=== PATIENT | female | born 1935 | race Hispanic/Latino ===

== ENCOUNTER 2018-08-23 13:50 | Inpatient (IN) | payer MEDICARE, OTHER ==
[2018-08-23] MEDS ORDERED: HUMALOG100 UNIT/1 SQ (14:07)
[2018-08-23] MEDS ORDERED: METOPROLOL TART25 MG PO (14:07)
[2018-08-23] MEDS ORDERED: FENOFIBRATE145 MG PO (14:07)
[2018-08-23] MEDS ORDERED: PLAVIX75 MG PO (14:07)
[2018-08-23] MEDS ORDERED: CRESTOR10 MG PO (14:07)
[2018-08-23] MEDS ORDERED: LEVEMIR100 UNIT/1 SQ ×2 (14:07)
[2018-08-23] MEDS ORDERED: ASPIRIN81 MG PO (14:07)
[2018-08-23] MEDS ORDERED: SODIUM CHLORIDE 0.9% 1000ML 1,000 ML IV STA (14:16)
[2018-08-23 14:23] LABS: BASOPHILS % 0.4 % (0.0-1.0); EOSINOPHILS # (AUTO) 0.6 (0.0-0.4); EOSINOPHILS % 5.5 % (0.0-6.0); HEMATOCRIT 35.9 % (34.2-44.1); LYMPHOCYTES # (AUTO) 2.3 (1.0-3.2); MEAN CORPUSCULAR HEMOGLOBIN 29.8 pg (28-32); MEAN CORPUSCULAR HGB CONC 33.4 g/dL (31-35); MEAN CORPUSCULAR VOLUME 89.1 fL (81-99); MONOCYTES # (AUTO) 0.6 (0.2-0.8); MONOCYTES % 5.6 % (4.4-11.3); NEUTROPHILS # (AUTO) 7.7 (2.1-6.9); NEUTROPHILS % 67.8 % (38.7-80.0); PLATELET COUNT 260 x10e3/uL (140-360); RED BLOOD COUNT 4.03 x10e6/uL (3.6-5.1); RED CELL DISTRIBUTION WIDTH 12.6 % (11.7-14.4)
[2018-08-23 14:35] LABS: INR 0.94; PROTHROMBIN TIME 13.1 seconds (11.9-14.5)
[2018-08-23 14:36] LABS: PARTIAL THROMBOPLASTIN TIME 27.1 seconds (23.8-35.5)
[2018-08-23 14:46] LABS: ALBUMIN 3.1 g/dL (3.5-5.0); ALBUMIN/GLOBULIN RATIO 0.8 (0.8-2.0); ANION GAP 14.3 mmol/L (8-16); CALCIUM 9.7 mg/dL (8.4-10.2); CREATININE, SERUM 1.18 mg/dL (0.57-1.11); MAGNESIUM 1.6 MG/DL (1.3-2.1); POTASSIUM 4.3 mmol/L (3.5-5.1)
[2018-08-23 14:52] LABS: CREATINE KINASE MB 0.8 ng/mL (0-5.0)
[2018-08-23] MEDS ORDERED: ONDANSETRON HCL INJ 2MG/ML 2ML 2 MG/ML VIAL IV ONE (15:00)
--- NOTE | 2018-08-23 15:31 | Diagnostic Imaging Report ---
EXAMINATION: CHEST SINGLE (PORTABLE) INDICATION: Abdominal pain. ^ERMD ORDER ^[id number] ^1515 ^Y COMPARISON: None FINDINGS: AP view TUBES and LINES: None. LUNGS: Low lung volumes. There is no evidence of pneumonia or pulmonary edema. PLEURA: No pleural effusion or pneumothorax. HEART AND MEDIASTINUM: The cardiomediastinal silhouette is unremarkable. Aorta is calcified and mildly tortuous. BONES AND SOFT TISSUES: No acute osseous lesion. Soft tissues are unremarkable. UPPER ABDOMEN: No free air under the diaphragm. IMPRESSION: No acute thoracic abnormality. Signed by: Dr. Quique Enriquez MD on 08/23/2018 3:28 PM
[2018-08-23] MEDS ORDERED: SODIUM CHLORIDE 0.9% 250ML 250 ML IV ONE ×2 (15:45)
--- NOTE | 2018-08-23 17:49 | Diagnostic Imaging Report ---
EXAM: CT Abdomen and Pelvis WITH contrast INDICATION: ^abd pain ^[id number] ^1630 COMPARISON: None. TECHNIQUE: Abdomen and pelvis were scanned utilizing a multidetector helical scanner from the lung base to the pubic symphysis after administration of IV contrast. Coronal and sagittal reformations were obtained. Dose modulation, iterative reconstruction, and/or weight based adjustment of the mA/kV was utilized to reduce the radiation dose to as low as reasonably achievable. Routine protocol was performed. Scan was performed when during portal venous phase. IV CONTRAST: 100 mL of Isovue-370 ORAL CONTRAST: None. COMPLICATIONS: None RADIATION DOSE: Total DLP: 405.18 mGy*cm Estimated effective dose: (DLP x 0.015 x size factor) mSv CTDIvol has been reviewed. It is below the limits set by the Radiation Protocol Committee (RPC). FINDINGS: LINES and TUBES: None. LOWER THORAX: Unremarkable HEPATOBILIARY: No focal hepatic lesions. Moderate pneumobilia and left hepatic lobe biliary dilatation. The common bile duct is also distended with air. GALLBLADDER: Surgically absent. SPLEEN: No splenomegaly. PANCREAS: Atrophic. No focal masses or ductal dilatation. ADRENALS: No adrenal nodules KIDNEYS/URETERS: Kidneys enhance symmetrically. No hydronephrosis. No cystic or solid mass lesions. No stones. Multifocal bilateral areas of cortical thinning/scarring. Bilateral renal calcifications are probably vascular. GI TRACT: No abnormal distention or evidence of bowel obstruction. Mild cecal and proximal ascending colon wall thickening. Scattered colonic diverticula without evidence of diverticulitis. Appendix is normal. PELVIC ORGANS/BLADDER: Multiple calcified uterine fibroids. Bladder is unremarkable. LYMPH NODES: No lymphadenopathy. VESSELS: Severe aortoiliac atherosclerotic disease. PERITONEUM / RETROPERITONEUM: No free air or fluid. BONES: Generalized demineralization limits evaluation. Mottled appearance of the pelvic bones mild lumbar spine scoliosis with multilevel advanced degenerative changes. SOFT TISSUES: Small fat-containing umbilical hernia. IMPRESSION: 1. Mild cecal and proximal ascending colon wall thickening, could be due to underdistention or mild colitis in the appropriate clinical context. Otherwise, no acute inflammatory process in the abdomen/pelvis. 2. Status post cholecystectomy. There is moderate pneumobilia and left hepatic lobe biliary dilatation. The common bile duct is also distended with air. 3. Severe arteriolosclerosis. Signed by: Dr. Quique Enriquez MD on 08/23/2018 5:45 PM
[2018-08-23 18:09] LABS: BILIRUBIN,URINE NEGATIVE (NEGATIVE); CLARITY,URINE SL CLOUDY (CLEAR); COLOR,URINE YELLOW (YELLOW); KETONES,URINE NEGATIVE (NEGATIVE); LEUKOCYTE ESTERASE ,URINE TRACE (NEGATIVE); NITRITE,URINE NEGATIVE (NEGATIVE); PROTEIN,URINE DIPSTICK 3+ (NEGATIVE); URINE UROBILINOGEN 1 mg/dL (0.2 - 1)
[2018-08-23] MEDS ORDERED: PIPER-TAZ 3.375 GM 50 ML IV SCH (18:30)
[2018-08-23 18:32] LABS: RBC,URINE 0-5 /HPF (0-5)
[2018-08-23 18:33] LABS: EPITHELIAL CELLS,URINE MODERATE /LPF; TRANSITIONAL EPI CELLS,URINE MODERATE
[2018-08-23 18:39] LABS: BACTERIA,URINE MANY /HPF
--- NOTE | 2018-08-23 18:39 | NUR ---
Call placed to lab, per Alex Armas SHIPPING PROCESSOR for lactic blood draw. Spoke with
[2018-08-23] MEDS ORDERED: DEXTROSE 50% SYRINGE 50 ML IV PRN (18:45)
[2018-08-23] MEDS ORDERED: SODIUM CHLORIDE 0.9% 1000ML 1,000 ML IV ONE (18:45)
[2018-08-23] MEDS ORDERED: IOPAMIDOL 370 MG/ML 200 ML INFUS..BTL INJ ONE (18:45)
--- OUTSIDE RECORDS SUMMARY | 2018-08-23 18:56 | XMS REPORT ---
Author Author [facility] Address Unknown Phone Unavailable Care Team Providers Care Transition Coach Name Role Phone Manny PERDUE Unavailable Unavailable Problems This patient has no known problems. Allergies, Adverse Reactions, Alerts This patient has no known allergies or adverse reactions. Medications This patient has no known medications. Results Test Description Test Time Test Comments Text Results Atomic Results Result Comments CT ABDOMEN/PELVIS W 2018-08-23 17:33:00 [facility] [address] [place] [address] Patient Name: DELANEY SULLIVAN MR #: [id number] : 1935 Age/Sex: 83/F Req #: [id number] Adm Physician: Ordered by: KIMMY CASTANEDA BEAUTY ARTIST Report #: [id number] Location: ER Room/Bed: Procedure: [id number] CT/CT ABDOMEN/PELVIS W Exam Date: 08/23/18 Exam Time: 1630 REPORT STATUS: Signed EXAM: CT Abdomen and Pelvis WITH contrast INDICATI ON: abd pain [id number] COMPARISON: None. TECHNIQUE: Abdomen and pelvis were scanned utilizing a multidetector helical scanner from the lung base to the pubic symphysis after administration of IV contrast. Coronal and sagittal reformations were obtained. Dose modulation, iterative reconstruction, and/or weight based adjustment of the mA/kV was utilized to reduce the radiation dose to as low as reasonably achievable. Routine protocol was performed. Scan was performed when during portal venous phase. IV CONTRAST: 100 mL of Isovue-370 ORAL CONTRAST: None. COMPLICATIONS: None RADIATION DOSE: Total DLP: 405.18 mGy*cm Estimated effective dose: (DLP x 0.015 x size factor) mSv CTDIvol has been reviewed. It is below the limits set by the Radiation Protocol Committee (RPC). FINDINGS: LINES and TUBES: None. LOWER THORAX: Unremarkable HEPATOBILIARY: No focal hepatic lesions. Moderate pne umobilia and left hepatic lobe biliary dilatation. The common bile duct is also distended with air. GALLBLADDER: Surgically absent. SPLEEN: No splenomegaly. PANCREAS: Atrophic. No focal masses or ductal dilatation. ADRENALS: No adrenal nodules KIDNEYS/URETERS: Kidneys enhance symmetrically. No hydronephrosis. No cystic or solid mass lesions. No stones. Multifocal bilateral areas of cortical thinning/scarring. Bilateral renal calcifications are probably vascular. GI TRACT: No abnormal distention or evidence of bowel obstruction. Mild cecal and proximal ascending colon wall thickening. Scattered colonic diverticula without evidence of diverticulitis. Appendix is normal. PELVIC ORGANS/BLADDER: Multiple calcified uterine fibroids. Bladder is unremarkable. LYMPH NODES: No lymphadenopathy. VESSELS: Severe aortoiliac atherosclerotic disease. PERITONEUM / RETROPERITONEUM: No free air or fluid. BONES: Generalized demineralization limits evaluation. Mottled appearance of the pelvic bones mild lumbar spine scoliosis with multilevel advanced degenerative changes. SOFT TISSUES: Small fat-containing umbilical hernia. IMPRESSION: 1. Mild cecal and proximal ascending colon wall thickening, could be due to underdistention or mild colitis in the appropriate clinical context. Otherwise, no acute inflammatory process in the abdomen/pelvis. 2. Status post cholecystectomy. There is moderate pneumobilia and left hepatic lobe biliary dilatation. The common bile duct is also distended with air. 3. Severe arteriolosclerosis. Signed by: Dr. Quique Hinds MD on 08/23/2018 5:45 PM Dictated By: QUIQUE HINDS MD 44 Transcribed By: KIERSTEN on 08/23/181744 COPY TO: KIMMY CASTANEDA NP CHEST SINGLE (PORTABLE) 2018-08-23 15:27:00 [place] [address] Patient Name: DELANEY SULLIVAN MR #: [id number] : 1935 Age/Sex: 83/F Req #: [id number] Adm Physician: Ordered by: KIMMY CASTANEDA NP Report #: [id number] Location: ER Room/Bed: Procedure: [id number] DX/CHEST SINGLE (PORTABLE) Exam Date: 08/23/18 Exam Time: 1515 REPORT STATUS: Signed EXAMINATION: CHEST SINGLE (PORTABLE) INDIC ATION: Abdominal pain. ERMD ORDER [id number] 1515 Y COMPARISON: None FINDINGS: AP view TUBES and LINES: None. LUNGS: Low lung volumes. There is no evidence of pneumonia or pulmonary edema. PLEURA: No pleural effusion or pneumothorax. HEART AND MEDIASTINUM: The cardiomediastinal silhouette is unremarkable. Aorta is calcified and mildly tortuous. BONES AND SOFT TISSUES: No acute osseous lesion. Soft tissues are unremarkable. UPPER ABDOMEN: No free air under the diaphragm. IMPRESSION: No acute thoracic abnormality. Signed by: Dr. Quique Hinds MD on 08/23/2018 3:28 PM Dictated By: QUIQUE HINDS MD 1528 Transcribed By: KIERSTEN on 08/23/18 1528 COPY TO: KIMMY CASTANEDA NP
[2018-08-23] MEDS: METRONIDAZOLE 500MG/NS 100ML 100 ML IV SCH (19:43)
[2018-08-23] MEDS ORDERED: NIFEDIPINE CR 30 MG TAB PO STA (21:10)
[2018-08-23] MEDS: CIPROFLOXACIN 400 MG/D5W 200ML 200 ML IV SCH (22:06)
[2018-08-23] MEDS ORDERED: SODIUM CHLORIDE 0.9% 1000ML 1,000 ML ONE (22:55)
[2018-08-23] MEDS: INSULIN LISPRO 100 UNIT/1 ML 3ML VIAL SQ SCH (22:56)
--- NOTE | 2018-08-23 23:05 | NUR ---
RECEIVED REPORT FROM FRANK MONTANEZ DAY SHIFT NURSE.
--- NOTE | 2018-08-23 23:06 | NUR ---
Walking rounds completed with Juanis MARIE. Pt is in no acute distress at this time.
[2018-08-24] MEDS: METRONIDAZOLE 500MG/NS 100ML 100 ML IV SCH ×3 (02:23→17:08)
[2018-08-24 05:40] LABS: BASOPHILS % 0.4 % (0.0-1.0); EOSINOPHILS # (AUTO) 0.8 (0.0-0.4); EOSINOPHILS % 7.1 % (0.0-6.0); HEMATOCRIT 34.7 % (34.2-44.1); HEMOGLOBIN 11.5 g/dL (12.0-16.0); LYMPHOCYTES % 27.9 % (18.0-39.1); MEAN CORPUSCULAR HEMOGLOBIN 29.7 pg (28-32); MEAN CORPUSCULAR HGB CONC 33.1 g/dL (31-35); MEAN CORPUSCULAR VOLUME 89.7 fL (81-99); MONOCYTES # (AUTO) 0.9 (0.2-0.8); MONOCYTES % 8.3 % (4.4-11.3); NEUTROPHILS # (AUTO) 5.9 (2.1-6.9); NEUTROPHILS % 55.5 % (38.7-80.0); PLATELET COUNT 237 x10e3/uL (140-360); RED BLOOD COUNT 3.87 x10e6/uL (3.6-5.1); RED CELL DISTRIBUTION WIDTH 12.7 % (11.7-14.4)
[2018-08-24 06:01] LABS: ALBUMIN 2.9 g/dL (3.5-5.0); ALBUMIN/GLOBULIN RATIO 0.8 (0.8-2.0); ANION GAP 12.1 mmol/L (8-16); CALCIUM 9.2 mg/dL (8.4-10.2); CREATININE, SERUM 1.02 mg/dL (0.57-1.11); POTASSIUM 4.1 mmol/L (3.5-5.1)
--- NOTE | 2018-08-24 07:15 | NUR ---
REPORT GIVEN TO FRANK WILLIAMSON DAY SHIFT NURSE.
[2018-08-24] MEDS: PANTOPRAZOLE 40 MG 10ML VIAL IV SCH (08:20)
[2018-08-24] MEDS: INSULIN LISPRO 100 UNIT/1 ML 3ML VIAL SQ SCH ×4 (08:35→23:33)
[2018-08-24] MEDS: CIPROFLOXACIN 400 MG/D5W 200ML 200 ML IV SCH ×2 (09:24→23:50)
[2018-08-24] MEDS: ONDANSETRON HCL INJ 2MG/ML 2ML 2 MG/ML VIAL IV PRN ×2 (11:20→23:28)
--- NOTE | 2018-08-24 12:25 | NUR ---
DR. BOB AT BEDSIDE FOR PT EVAL AT THIS TIME, PENDING ORDERS.
[2018-08-24] MEDS ORDERED: CIPROFLOXACIN 400 MG/D5W 200ML 200 ML IV SCH (13:00)
[2018-08-24] MEDS: SODIUM CHLORIDE 0.9% 1000ML 1,000 ML IV SCH ×2 (13:10→23:27)
[2018-08-24] MEDS ORDERED: METRONIDAZOLE 500MG/NS 100ML 100 ML IV SCH (14:30)
[2018-08-24] MEDS: METOPROLOL TARTRATE 25 MG TAB PO SCH (17:10)
--- NOTE | 2018-08-24 19:15 | NUR ---
REPORT GIVEN TO MILO PARIS INFECTION PREVENTION SPECIALIST NURSE.
--- NOTE | 2018-08-24 19:54 | History and Physical ---
CHIEF COMPLAINT: Abdominal pain. HISTORY OF PRESENT ILLNESS: This is an 83-year-old female, who has multiple comorbidities of hypertension, type 2 diabetes, bilateral amputee, who came into the ED with a four-day history of abdominal pain that has been bothering her. The patient is a very poor historian. Of note, reports some significant excruciating abdominal pain four days ago. She does not locate to one specific area where her pain is. Denies any diarrhea. Reports having some nausea and vomiting at home. No reports of any fever, chest pain, or palpitations. The patient was seen and evaluated at bedside on the medical floor. Currently, she is in the ER, vital signs were stable when I evaluated her. She is normal appearing with no complaints. Her abdomen is slightly tender to palpation on examination. REVIEW OF SYSTEMS: Pertinent positives: Abdominal pain, nausea, and vomiting. Pertinent negatives: Denies any chest pain, palpitation, dysuria, hematuria, frequency, urgency, lightheadedness, dizziness, cough, congestion, fever, or any other complaints. Rest of the 14-point review of systems are reviewed with the patient and are negative. ALLERGIES: VITAMIN B12. HOME MEDICATIONS: Levemir 22 units subcu at bedtime, Levemir 25 units subcu in the morning, , aspirin 81 mg daily, Plavix 75 mg daily, Fenofibrate 145 mg daily, metoprolol 25 mg p.o. b.i.d., and Crestor 20 mg daily. PAST MEDICAL HISTORY: Bilateral knee amputee, diabetes, hypertension, and hyperlipidemia. PAST SURGICAL HISTORY: Bilateral amputee below the knee. FAMILY HISTORY: Hypertension, diabetes. SOCIAL HISTORY: No drugs or alcohol. Does not smoke. Good social support. PHYSICAL EXAMINATION: VITAL SIGNS: Temperature 98, pulse 65, respiratory rate is 20, blood pressure 115/59, and pulse ox 100% on room air. GENERAL: Not in acute distress. Alert and oriented x3. Cooperative on examination. HEENT: Head is normocephalic and atraumatic. Eyes; pupils are equal, round, and reactive to light bilaterally. Extraocular movements are intact bilaterally. Throat, no evidence of erythema or exudates in the posterior pharynx. Has poor dentition. NECK: Supple. Good range of motion. PULMONARY: Clear to auscultation bilaterally. No wheezing, no rales, no rhonchi, no crackles appreciated. CARDIOVASCULAR: Positive S1, S2. No murmurs, rubs, or gallops appreciated. ABDOMEN: She was tender to palpation diffusely throughout, nonspecific location. No rebound, no guarding. Bowel sounds were present, but she was tender diffusely. MUSCULOSKELETAL: Strength is 5/5 throughout. No evidence of any muscle deficits on examination. No weakness appreciated. NEUROLOGICAL: Cranial nerves II through XII grossly intact. No evidence of any neurological deficits on exam. SKIN: Intact. Warm to touch. Good cap refill. PSYCHIATRIC: Normal affect and mood. EXTREMITIES: No edema. Good range of motion throughout. LABORATORY FINDINGS: Show white count 10.6, hemoglobin 9.5, hematocrit is 34.7, and platelets of 237. Coagulations were normal. Chemistry; sodium 137, potassium is 4.1, chloride 105, bicarb 24, anion gap of 12, BUN is 19, creatinine is 1, glucose is 124. Lactic acid on admission was 27, now 16, which is normal. Calcium 9.2. LFTs were normal. Lipase was 19. Albumin 2.9. Urinalysis; specific gravity is elevated, wbc's 11 to 20, some transitional epithelial cells. Flu was negative. Microbiology; urine cultures pending. Chest x-ray was negative. CT abdomen and pelvis with contrast shows mild cecal and proximal ascending colon wall thickening, could be due to underdistention or mild colitis in the appropriate clinical setting. Otherwise, no acute inflammatory process in the abdomen and pelvis. She is status post cholecystectomy. There is moderate pneumobilia and left hepatic lobe biliary dilatation. The common bile duct is also distended with air. Severe aortic sclerosis. IMPRESSION: 1. Abdominal pain concerning for underlying acute colitis with evidence of pneumobilia on CT scan. 2. Nausea/vomiting/dehydration. 3. Type 2 diabetes. 4. Uncontrolled hypertension. 5. Bilateral igajl-mcr-[id number] amputee. PLAN: At this time, her pain is more than out of proportion based on my exam and CT findings shows evidence of pneumobilia, which I am not exactly sure where the air would be from. At this time, I will go ahead and consult with General Surgery, who mold construction supervisor with Dr. Stanley. Also, GI has been consulted as well. Continue with IV antibiotics. Clear liquid diet for now. Pain control. We are going to resume, continue with broad-spectrum IV antibiotics, which I am going to go ahead and change from Cipro and Flagyl to IV Zosyn to cover more gram negatives and more anaerobic coverage. Put on her insulin sliding scale. Antinausea medications. IV fluids as well. Hold DVT prophylaxis for now in the event the patient needs some surgical intervention. Continue with pain control aggressively p.r.n. Started on nifedipine XL 60 mg daily last night, first dose now, so blood pressure on control. She is on p.r.n. hydralazine. Otherwise, we will also get PT and OT. MD NORMA Gonzales/EFRAIN /[id number]
--- NOTE | 2018-08-24 20:34 | Consultation ---
DATE OF CONSULTATION: 08/24/2018 CHIEF COMPLAINT: Abdominal pain. HISTORY OF PRESENT ILLNESS: The patient is an 83-year-old female with 4-day history of decreased appetite and nausea with vomiting of phlegm and mucus. The patient states the pain has been diffuse. She denies fever, chills, or diarrhea. PAST MEDICAL HISTORY: Positive for hypertension, diabetes, and hyperlipidemia. PAST SURGICAL HISTORY: Positive for cholecystectomy. ALLERGIES: SHE IS ALLERGIC TO PENICILLIN AND VITAMIN B12. SOCIAL HABITS: No history of smoking or alcohol abuse. REVIEW OF SYSTEMS: No chest pain or shortness of breath. PHYSICAL EXAMINATION: VITAL SIGNS: Stable, afebrile. GENERAL: She is awake, alert, in moderate discomfort. HEENT: Sclerae anicteric. NECK: Supple. LUNGS: Clear. HEART: Irregular rate and rhythm. No murmurs. ABDOMEN: Mildly distended with tenderness in all four quadrants, particularly in the right lower quadrant with mild rebound. EXTREMITIES: No cyanosis or edema. LABORATORY DATA: White cell count is 10.6, hemoglobin 11, and platelet count 237. Creatinine 1.0. Liver function tests within normal limits. Abdominal CT show wall thickening of the cecum and proximal ascending colon, suggestive of colitis. There is pneumobilia in the common bile duct and intrahepatic ducts. ASSESSMENT: Abdominal pain, diffuse with CT evidence of pneumobilia and colitis. PLAN: IV antibiotics have been initiated. MD ANU Rivero/EFRAIN /[id number]
[2018-08-24 21:15] VITALS: BP 120/51
--- NOTE | 2018-08-24 21:15 | NUR ---
RECEIVED PATIENT FROM ER VIA HOSPITAL BED. 83 YR OLD [place] SPEAKING FEMALE. SON AT BEDSIDE. ALERT AND ORIENTED. ASSESSMENT PERFORMED, VS RECORDED. PATIENT STILL COMPLAINING OF ABDOMINAL PAIN. WILL LOOK AT [facility] FOR PAIN MANAGEMENT. SKIN ASSESSMENT PERFORMED AT THIS TIME AND DIAPER FULLY SOILED AND HAD A SMALL HARD STOOL HANGING FROM RECTUM, CHECKED FOR IMPACTION, RECTUM FULL OF PASTY STOOL BOWEL. SACRUM AREA RED STAGE 1, PLACED A ALLEVYN FOAM DRESSING TO SACRUM. PURE WICK PLACED.
[2018-08-24 21:30] VITALS: BP 122/60
[2018-08-24] MEDS: SIMVASTATIN 20 MG TAB PO SCH (23:27)
[2018-08-24] MEDS: MORPHINE SULFATE INJ 4 MG/ML INJ 1ML IV PRN (23:28)
--- NOTE | 2018-08-24 23:40 | NUR ---
SPOKE TO DR Joe GUY MAKING SURE HE WAS AWARE OF CONSULT ALONG WITH PATIENT HAVING LARGE PASTY STOOL IN RECTUM THAT PATIENT IS HAVING A HARD TIME EXPELLING. SOAP SUDS ENEMA ORDERED X1 Addendum: 08/25/18 at 0638 by Uzma Cormier RN MODERATE AMOUNTS OF FORMED STOOL AFTER ENEMA DURING AND AFTER
[2018-08-25] VITALS (9 sets, daily range): BP systolic 126–182; BP diastolic 47–99
[2018-08-25] MEDS: METRONIDAZOLE 500MG/NS 100ML 100 ML IV SCH ×3 (01:59→16:52)
[2018-08-25] MEDS ORDERED: PEG (High)/E-LYTE SOLN 4,000 ML BTL PO ONE ×3 (03:15→21:30)
--- NOTE | 2018-08-25 03:19 | NUR ---
DR Joe GUY ROUNDED AND VERBAL ORDERS OBTAIN TO OBTAIN CONSENT FOR COLONOSCOPY,RANJIT PREP 4000ML WITH IN 4 HOURS THEN NPO AFTER PREP. COLONOSCOPY TO BE PERFORMED TODAY SOMETIME IN THE AFTERNOON. DR Joe GUY INFORMED THAT HE WOULD TAKE CARE OF PLACING THIS PROCEDURE ON THE LIST
[2018-08-25 05:10] LABS: BASOPHILS % 0.4 % (0.0-1.0); EOSINOPHILS # (AUTO) 0.8 (0.0-0.4); EOSINOPHILS % 9.9 % (0.0-6.0); HEMATOCRIT 31.5 % (34.2-44.1); HEMOGLOBIN 10.4 g/dL (12.0-16.0); LYMPHOCYTES % 23.7 % (18.0-39.1); MEAN CORPUSCULAR HEMOGLOBIN 29.8 pg (28-32); MEAN CORPUSCULAR VOLUME 90.3 fL (81-99); MONOCYTES # (AUTO) 0.8 (0.2-0.8); MONOCYTES % 9.3 % (4.4-11.3); NEUTROPHILS # (AUTO) 4.8 (2.1-6.9); NEUTROPHILS % 55.8 % (38.7-80.0); PLATELET COUNT 225 x10e3/uL (140-360); RED BLOOD COUNT 3.49 x10e6/uL (3.6-5.1); RED CELL DISTRIBUTION WIDTH 12.5 % (11.7-14.4)
[2018-08-25] MEDS: MORPHINE SULFATE INJ 4 MG/ML INJ 1ML IV PRN (05:30)
[2018-08-25 05:32] LABS: ANION GAP 9.9 mmol/L (8-16); CALCIUM 8.3 mg/dL (8.4-10.2); CREATININE, SERUM 0.98 mg/dL (0.57-1.11); POTASSIUM 3.9 mmol/L (3.5-5.1)
[2018-08-25] MEDS: INSULIN LISPRO 100 UNIT/1 ML 3ML VIAL SQ SCH ×4 (07:30→21:17)
[2018-08-25] MEDS: SODIUM CHLORIDE 0.9% 1000ML 1,000 ML IV SCH ×2 (08:35→18:03)
[2018-08-25] MEDS: CLOPIDOGREL BISULFATE 75 MG TAB PO SCH (08:36)
[2018-08-25] MEDS: PANTOPRAZOLE 40 MG 10ML VIAL IV SCH (08:36)
[2018-08-25] MEDS: METOPROLOL TARTRATE 25 MG TAB PO SCH ×2 (08:36→16:52)
[2018-08-25] MEDS: FENOFIBRATE 145 MG TAB PO SCH (08:36)
[2018-08-25] MEDS: ASPIRIN 81 MG CHEW TAB PO SCH (08:36)
[2018-08-25] MEDS: CIPROFLOXACIN 400 MG/D5W 200ML 200 ML IV SCH ×2 (10:31→21:16)
--- NOTE | 2018-08-25 13:27 | Progress Note ---
DATE: 08/25/2018 Medicine Progress Note SUBJECTIVE: The patient is doing well today. She is scheduled for a colonoscopy later today, bowel prep has been performed. She denies any abdominal pain at this time. GI and General surgery are following. PHYSICAL EXAMINATION: VITAL SIGNS: Temperature is 96.9, pulse 68, respiratory rate is 14, blood pressure is 144/61, and saturating 99% on room air. GENERAL: Not in acute distress. Alert and oriented x3. Cooperative on examination. HEENT: Head is normocephalic and atraumatic. Eyes; pupils are equal, round, and reactive to light bilaterally. Extraocular movements are intact bilaterally. Throat, no evidence of erythema or exudates in the posterior pharynx. Has poor dentition. NECK: Supple. Good range of motion. PULMONARY: Clear to auscultation bilaterally. No wheezing, no rales, no rhonchi, no crackles appreciated. CARDIOVASCULAR: Positive S1, S2. No murmurs, rubs, or gallops appreciated. ABDOMEN: Soft, nondistended, and nontender to palpation. Bowel sounds present. MUSCULOSKELETAL: Strength is 5/5 throughout. No evidence of any muscle deficits on examination. No weakness appreciated. NEUROLOGICAL: Cranial nerves 2 through 12 grossly intact. No evidence of any neurological deficits on exam. SKIN: Intact. Warm to touch. Good cap refill. PSYCHIATRIC: Normal affect and mood. EXTREMITIES: No edema. Good range of motion throughout. LAB FINDINGS: Show white count 8.5, hemoglobin 10.1, hematocrit 31.5, and platelets of 225. Coagulations are normal. Chemistry; sodium 138, potassium 3.9, chloride 109, bicarb 23, anion gap of 9.9, BUN is 14, creatinine is 0.98, glucose 109, calcium 9.3. Lactic acid is normal at 16. Troponins are all negative. MICROBIOLOGY: Urine culture is negative. IMAGING STUDIES: None IMPRESSION: 1. Abdominal pain concerning for acute colitis, but there is evidence of pneumobilia on CT scan as well. 2. Nausea, vomiting, and dehydration. 3. Type 2 diabetes. 4. Uncontrolled hypertension. 5. Bilateral kukky-mbz-vdrp amputee. PLAN: At this time, General Surgery evaluated the patient, just recommends IV antibiotics, no further workup needed. GI evaluated, the patient will need colonoscopy, currently has bowel prep, likely scheduled for colonoscopy later today. Continue with IV antibiotics for now. She is n.p.o. and will have diet after colonoscopy. She continuously has Cipro and Flagyl at this time. Continue with IV fluids. Blood pressure is better controlled, we will continue with same plan of care. I discussed case with nursing staff as well. Once stable, she will be transferred to regular medical floor. Likely, we will discharge in next 1-2 days. MD NORMA Gonzales/MODL /[id number]
[2018-08-25 13:39] LABS: CALCIUM 8.5 mg/dL (8.4-10.2); CREATININE, SERUM 1.03 mg/dL (0.57-1.11)
--- NOTE | 2018-08-25 16:30 | NUR ---
PATIENT'S DAUGHTER TRANSFERRED PATIENT TO RECLINER. PATIENT SITTING UP IN RECLINER ON PORTABLE EKG CONTINUOUS MONITORING.
[2018-08-25] MEDS: SIMVASTATIN 20 MG TAB PO SCH (21:16)
[2018-08-25] MEDS: HYDRALAZINE HCL 20 MG/ML VIAL IV PRN (23:50)
[2018-08-26] VITALS (10 sets, daily range): BP systolic 141–180; BP diastolic 42–65
[2018-08-26] MEDS: METRONIDAZOLE 500MG/NS 100ML 100 ML IV SCH ×3 (00:19→16:30)
[2018-08-26] MEDS: ONDANSETRON HCL INJ 2MG/ML 2ML 2 MG/ML VIAL IV PRN (03:05)
[2018-08-26] MEDS: SODIUM CHLORIDE 0.9% 1000ML 1,000 ML IV SCH ×2 (03:05→12:02)
[2018-08-26 04:43] LABS: BASOPHILS % 0.4 % (0.0-1.0); EOSINOPHILS # (AUTO) 0.6 (0.0-0.4); EOSINOPHILS % 7.4 % (0.0-6.0); HEMATOCRIT 31.4 % (34.2-44.1); HEMOGLOBIN 10.4 g/dL (12.0-16.0); LYMPHOCYTES # (AUTO) 1.3 (1.0-3.2); LYMPHOCYTES % 15.2 % (18.0-39.1); MEAN CORPUSCULAR HEMOGLOBIN 29.5 pg (28-32); MEAN CORPUSCULAR HGB CONC 33.1 g/dL (31-35); MONOCYTES # (AUTO) 0.7 (0.2-0.8); MONOCYTES % 7.6 % (4.4-11.3); NEUTROPHILS # (AUTO) 5.9 (2.1-6.9); NEUTROPHILS % 68.7 % (38.7-80.0); PLATELET COUNT 232 x10e3/uL (140-360); RED BLOOD COUNT 3.53 x10e6/uL (3.6-5.1); RED CELL DISTRIBUTION WIDTH 12.8 % (11.7-14.4)
[2018-08-26] MEDS ORDERED: CITRATE OF MAGNESIA 300ML BOTTLE PO ONE ×2 (05:00)
[2018-08-26 05:02] LABS: ANION GAP 9.2 mmol/L (8-16); CALCIUM 8.5 mg/dL (8.4-10.2); CREATININE, SERUM 0.89 mg/dL (0.57-1.11); POTASSIUM 3.2 mmol/L (3.5-5.1)
[2018-08-26] MEDS: INSULIN LISPRO 100 UNIT/1 ML 3ML VIAL SQ SCH ×4 (07:30→21:04)
[2018-08-26] MEDS: METOPROLOL TARTRATE 25 MG TAB PO SCH ×2 (08:50→16:41)
[2018-08-26] MEDS: PANTOPRAZOLE 40 MG 10ML VIAL IV SCH (08:50)
[2018-08-26] MEDS: FENOFIBRATE 145 MG TAB PO SCH (08:50)
[2018-08-26] MEDS: ASPIRIN 81 MG CHEW TAB PO SCH (08:52)
[2018-08-26] MEDS: CLOPIDOGREL BISULFATE 75 MG TAB PO SCH (08:52)
[2018-08-26] MEDS: CIPROFLOXACIN 400 MG/D5W 200ML 200 ML IV SCH ×2 (09:01→21:45)
--- NOTE | 2018-08-26 11:22 | NUR ---
WOUND CARE- PUP SCREEN LOS: 1 DAY AGE: [age] YEAR OLD F HOB: 30 DEGREES DARRIN SCORE: 14 VISCO MATTRESS/ALTERNATING PRESSURE AIR MATTRESS PUP: STRICT PATIENT VISIT/SKIN CHECK; LEFT LABIA MAJORA WITH STAGE 1 UN BLANCHABLE PRESSURE ULCER, NO OTHER SKIN BREAKDOWN IDENTIFIED RECOMMENDATION: BILATERAL HEEL PROTECTORS/OFFLOAD HEELS WITH PILLOWS TURN AND REPOSITION EVERY 2 HOURS Addendum: 08/26/18 at 1214 by Marlon Hendricks RN REDDENED AREA TO PERINEUM IS INCONTINENCE DERMATITIS RELATED TO STOOLING. THE SACRUM HAS BLANCHABLE REDNESS. NURSING INSTRUCTED TO UTILIZE MOISTURE BARRIER CREAM TO PROTECT FROM LOOSE STOOL. PATIENT IS ON ALTERNATING PRESSURE RELIEF MATTRESS WITH APPROPRIATE SETTINGS.
[2018-08-26] MEDS ORDERED: POTASSIUM CHLORIDE 20 MEQ TAB CR PO ONE (12:30)
--- NOTE | 2018-08-26 16:38 | Operative Report ---
DATE OF PROCEDURE: 08/26/2018 SURGEON: Shay Grullon MD PROCEDURES: Colonoscopy and polypectomy with biopsies. INDICATIONS FOR COLONOSCOPY: Lower abdominal pain, colitis on CT scan. MEDICATION: The patient was done under MAC, please see anesthesiologist's note. PROCEDURE IN DETAIL: With the patient in left lateral decubitus position, flexible fiberoptic Olympus colonoscope was inserted into the rectum with ease and advanced all the way to the cecum. Mucosa overlying the cecum grossly appeared to be within normal limits. The ileocecal valve was intubated and the scope was advanced into the terminal ileum. Biopsies were obtained. The scope was then withdrawn back into the colon. The mucosa overlying the ascending colon revealed some diffuse erythema and moderate edema and biopsies were obtained. The mucosa overlying the transverse and descending grossly appeared to be within normal limits. There was some diverticular disease noted in the distal descending and the sigmoid colon. One polyp was snared from the sigmoid colon. The rectum grossly appeared to be within normal limits. The scope was then retroflexed into the distal rectum and small internal hemorrhoids were noted, none of which was actively bleeding. The scope was then straightened out, it was subsequently withdrawn. The patient tolerated the procedure well. IMPRESSION: 1. Mild colitis, ascending colon, biopsies obtained. 2. Diverticulosis. 3. Sigmoid colon polyp, snared. 4. Internal hemorrhoids, none actively bleeding. PLAN: Follow up histology. Initiate full liquid diet. The patient might benefit from a followup colonoscopy in 5 years. Shay Grullon MD [facility] /[id number] cc: Addison Camara MD
--- NOTE | 2018-08-26 18:10 | NUR ---
PT TO THE FLOOR AT THIS TIME FROM ICU. PT ACCOMPANIED BY FAMILY MEMBERS. PT DENIES NEEDS AT THIS TIME.
--- NOTE | 2018-08-26 18:34 | Progress Note ---
DATE: 08/26/2018 Medicine Progress Note SUBJECTIVE: The patient is status post colonoscopy that showed evidence of diverticulosis and shows also some mild colitis as well. There was one polyp snared as well. OBJECTIVE: VITAL SIGNS: Temperature is 98.1, pulse 71, respiratory rate is 18, blood pressure 120/55, pulse ox 99% on 2 L nasal cannula. GENERAL: Not in acute distress. Alert and oriented x3. Cooperative on examination. ABDOMEN: Head normocephalic, atraumatic. Eyes, pupils are equal, round, and reactive to light bilaterally. Extraocular movements are intact bilaterally. Throat, no evidence of erythema or exudates in the posterior pharynx. Has poor dentition. NECK: Supple. Good range of motion throughout. PULMONARY: Clear to auscultation bilaterally. No wheezing, no rales, no rhonchi. No crackles appreciated. CARDIOVASCULAR: Positive S1, S2. No murmurs, rubs, or gallops appreciated. ABDOMEN: Soft, nondistended, and nontender to palpation. Bowel sounds are present. MUSCULOSKELETAL: Strength is 5/5 throughout. No evidence of any muscle deficits on examination. No weakness appreciated. NEUROLOGICAL: Cranial nerves 2 through 12 grossly intact. No evidence of any neurological deficits on exam. SKIN: Intact. Warm to touch. Good cap refill. PSYCHIATRIC: Normal affect and mood. EXTREMITIES: No edema. Good range of motion throughout. LABORATORY DATA: Lab findings show white count 8.5, hemoglobin 10.4, hematocrit 31, and platelets of 232. Coagulations were normal. Chemistry; sodium 135, potassium 3.2, chloride 107, bicarb 22, anion gap of 9, BUN is 8, creatinine 0.89, glucose is 148, calcium is 8.5. MICROBIOLOGY: None. IMAGING STUDIES: None. IMPRESSION: 1. Abdominal pain concerning for underlying acute colitis, status post colonoscopy performed on 08/26/2018 that showed diverticulosis, polyps snared, and mild colitis. 2. Nausea, vomiting, and dehydration, resolved. 3. Type 2 diabetes. 4. Uncontrolled hypertension. 5. Bilateral below-knee amputee. PLAN: At this time, colonoscopy has been performed with results above. Continue with IV fluids for now. Continue with IV antibiotics as well. We can resume her diet now with full liquid diet. I will continue with Surgery and GI. The patient will be here overnight. She will likely be discharged tomorrow as she is doing very well. MD NORMA Gonzales/EFRAIN /[id number]
[2018-08-26] MEDS ORDERED: PROPOFOL IV EMULSION 10 MG/ML 50 ML VIAL ONE (18:58)
[2018-08-26] MEDS ORDERED: GLUCAGON FOR INJ 1 MG VIAL ONE (18:58)
[2018-08-26] MEDS ORDERED: HYOSCYAMINE SULFATE 0.5 MG/ML INJ ONE (18:58)
[2018-08-26] MEDS: SIMVASTATIN 20 MG TAB PO SCH (21:03)
[2018-08-27 00:01] VITALS: BP 160/69
[2018-08-27] MEDS: SODIUM CHLORIDE 0.9% 1000ML 1,000 ML IV SCH ×4 (00:30→17:28)
[2018-08-27] MEDS: METRONIDAZOLE 500MG/NS 100ML 100 ML IV SCH ×3 (02:00→16:21)
[2018-08-27 05:40] VITALS: BP 157/63
[2018-08-27 05:43] LABS: BASOPHILS % 0.4 % (0.0-1.0); EOSINOPHILS # (AUTO) 0.8 (0.0-0.4); HEMATOCRIT 30.6 % (34.2-44.1); HEMOGLOBIN 9.7 g/dL (12.0-16.0); LYMPHOCYTES # (AUTO) 1.9 (1.0-3.2); LYMPHOCYTES % 26.8 % (18.0-39.1); MEAN CORPUSCULAR HEMOGLOBIN 29.3 pg (28-32); MEAN CORPUSCULAR HGB CONC 31.7 g/dL (31-35); MEAN CORPUSCULAR VOLUME 92.4 fL (81-99); MONOCYTES # (AUTO) 0.7 (0.2-0.8); MONOCYTES % 9.9 % (4.4-11.3); NEUTROPHILS # (AUTO) 3.7 (2.1-6.9); NEUTROPHILS % 51.2 % (38.7-80.0); PLATELET COUNT 218 x10e3/uL (140-360); RED BLOOD COUNT 3.31 x10e6/uL (3.6-5.1); RED CELL DISTRIBUTION WIDTH 13.1 % (11.7-14.4)
[2018-08-27 06:10] LABS: ANION GAP 8.6 mmol/L (8-16); CREATININE, SERUM 0.92 mg/dL (0.57-1.11); POTASSIUM 3.6 mmol/L (3.5-5.1)
--- NOTE | 2018-08-27 07:10 | NUR ---
REPORT GIVEN TO ONCOMING NURSE,WALKING ROUNDS MADE.PT RESTING IN BED WITH NO S/S OF DISTRESS.
[2018-08-27] MEDS: INSULIN LISPRO 100 UNIT/1 ML 3ML VIAL SQ SCH ×3 (07:30→16:24)
[2018-08-27 07:54] VITALS: BP 179/69
[2018-08-27] MEDS: PANTOPRAZOLE 40 MG 10ML VIAL IV SCH (09:22)
[2018-08-27] MEDS: ASPIRIN 81 MG CHEW TAB PO SCH (09:22)
[2018-08-27] MEDS: CLOPIDOGREL BISULFATE 75 MG TAB PO SCH (09:23)
[2018-08-27] MEDS: FENOFIBRATE 145 MG TAB PO SCH (09:23)
[2018-08-27] MEDS: METOPROLOL TARTRATE 25 MG TAB PO SCH ×2 (09:23→16:21)
[2018-08-27 09:53] VITALS: BP 179/69
--- NOTE | 2018-08-27 10:45 | NUR ---
PATIENT COMPLAINS OF PAIN AT IV SITE, OFFERED TO START NEW IV BUT PATIENT DECLINED, STATES THAT IS USUALLY THE NORMAL FEELING IN IV SITE, WILL CONTINUE TO MONITOR FOR ANY CHANGES.
[2018-08-27] MEDS: HYDRALAZINE HCL 20 MG/ML VIAL IV PRN (11:12)
[2018-08-27] MEDS: CIPROFLOXACIN 400 MG/D5W 200ML 200 ML IV SCH (11:13)
--- NOTE | 2018-08-27 11:13 | NUR ---
MANUAL BLOOD PRESSURE TAKEN AT 200/70, PATIENT GIVEN HYDRALAZINE 10MG PRN, WILL CONTINUE TO MONITOR.
[2018-08-27 12:53] VITALS: BP 193/74
[2018-08-27] MEDS: ONDANSETRON HCL INJ 2MG/ML 2ML 2 MG/ML VIAL IV PRN (12:58)
--- NOTE | 2018-08-27 14:03 | NUR ---
BLOOD PRESSURE CHECKED AGAIN AFTER ADMINISTRATION OF HYDRALAZINE, DECREASED TO 129/62, PATIENT RESTING COMFORTABLY AND WILL CONTINUE TO MONITOR
--- NOTE | 2018-08-27 15:04 | NUR ---
SPOKE WITH DR. SIGALA AND CONFIRMED OK PATIENT TO [facility]
[2018-08-27 16:02] VITALS: BP 129/62
--- NOTE | 2018-08-27 16:03 | NUR ---
SPOKE WITH DR. MALENA CAR PATIENT TO [facility]
[2018-08-27] MEDS ORDERED: FLAGYL250 MG PO (17:54)
[2018-08-27] MEDS ORDERED: CIPRO500 MG PO (17:54)
--- NOTE | 2018-08-27 19:19 | NUR ---
PATIENT AND GUARDIAN VERBALIZED UNDERSTANDING OF DISCHARGE INSTRUCTIONS, IV REMOVED, WHEELED OUT VIA WHEELCHAIR, AAX3, PICKED UP IN VEHICLE
--- NOTE | 2018-08-28 01:26 | Discharge Summary ---
FINAL DISCHARGE DIAGNOSES: 1. Abdominal pain secondary to acute colitis seen on imaging studies, status post colonoscopy performed on 08/26/2018 that showed diverticulosis, polyps snared, mild colitis. 2. Nausea, vomiting, dehydration, resolved. 3. Type 2 diabetes. 4. Uncontrolled hypertension. 5. Bilateral below the knee amputee. CONSULTANTS: We had General Surgery and GI. PHYSICAL EXAMINATION: VITAL SIGNS: Temperature is 98.3, pulse 63, respirations 18, blood pressure 129/62, and pulse ox 95% on room air. LAB FINDINGS: Show white count 7.1, hemoglobin 9.9, hematocrit 31, platelets of 280. Coagulation, PT 13, INR 0.94, PTT 27. Chemistry, sodium 138, potassium 3.6, chloride 112, bicarb 21, anion gap of 8.6, BUN is 8, creatinine is 0.92, glucose is 118, calcium is 8. LFTs were within normal range. T. bilirubin is 0.5. Troponins are negative. Albumin is 2.9. Lipase is 19. Urinalysis concerning for probable UTI. Microbiology showed urine cultures found to be a contaminant. IMAGING STUDIES: Chest x-ray, no acute abnormality. CT abdomen and pelvis shows mild cecal and proximal ascending colon wall thickening. It could be secondary to underdistention or mild colitis in the appropriate clinical setting. She is status post cholecystectomy seen. There is some common bile duct that was a little distended on examination with air, for which General Surgery was consulted and cleared for discharge. Also severe arteriosclerosis. HOSPITAL COURSE: This is an 83-year-old female, who came into the ED with complaints of abdominal pain, decreased oral intake ongoing for the last several days prior to arrival to the ED. GI and General Surgery were consulted. CT imaging of the abdomen and pelvis were noted. Per General Surgery, no further workup was needed and recommended medical management. We also discussed in the common bile duct and reports there is no further workup was needed. GI was consulted for which the patient underwent status post colonoscopy that was performed on 08/26/2018 and it showed evidence of diverticulosis, polyp was snared, and mild colitis seen. The patient's nausea and vomiting improved throughout the hospital course. She was on IV antibiotics as well as IV fluids. The patient has tolerated diet well, started on clear liquid diet and advance with solid food with no complaints. Abdominal pain resolved prior to being discharged home. Her diabetes and hypertension are well controlled and managed. On the day of discharge, vital signs stable, labs reviewed and stable. The patient seen, evaluated, and examined thoroughly on the day of discharge, no other complaints. The patient verbalized understanding and agreed with plan of care. A followup appointment as an outpatient with primary care physician in 1 week and GI specialist in 2 weeks' time for followup results. The patient has been cleared for discharge by both GI and General Surgery. MEDICATIONS: See med reconciliation form. DISPOSITION: Home. CONDITION: Stable. DIET: Heart healthy. In the event of any worsening symptoms, the patient was advised to come back to the ED for further evaluation. Discharge summary took greater than 35 minutes. MD NORMA Gonzales/EFRAIN /[id number]
== END 2018-08-27 19:14 | disposition home or self-care (01) | DRG 387 ==
LOC: ER 13:50 → ERHOLD 18:43 → ICU 08-24 21:24 → MED/SURG2 08-26 18:07
PROVIDERS: ADMIT Internal Medicine; ATTEND Internal Medicine
PROC: 0DB88ZX Excision of Small Intestine, Via Natural or Artificial Opening Endoscopic, Diagnostic (ICD-10-PCS; 2018-08-26)
PROC: 0DBM8ZX Excision of Descending Colon, Via Natural or Artificial Opening Endoscopic, Diagnostic (ICD-10-PCS; principal; 2018-08-26 14:00)
PROC: 0DBN8ZX Excision of Sigmoid Colon, Via Natural or Artificial Opening Endoscopic, Diagnostic (ICD-10-PCS; 2018-08-26 14:00)
PROC: 0DBB8ZX Excision of Ileum, Via Natural or Artificial Opening Endoscopic, Diagnostic (ICD-10-PCS; 2018-08-26 14:00)
DX: K51.90 Ulcerative colitis, unspecified, without complications (principal); E11.9 Type 2 diabetes mellitus without complications; Z89.512 Acquired absence of left leg below knee; Z89.511 Acquired absence of right leg below knee; K57.90 Diverticulosis of intestine, part unspecified, without perforation or abscess without bleeding; I10 Essential (primary) hypertension; E78.5 Hyperlipidemia, unspecified; K83.8 Other specified diseases of biliary tract; E11.51 Type 2 diabetes mellitus with diabetic peripheral angiopathy without gangrene; K63.5 Polyp of colon
CPT/HCPCS: 36415; 45378; 45380; 45385; 71045; 74177; 80048; 80053; 81001; 82550; 82553; 82948; 83605; 83690; 83735; 83880; 84484; 85025; 85610; 85730; 87086; 87400; 88305; 93005; 96372; 99284; J0360; J1610; J1980; J2270; J2405; J7030; J7050; Q9967

== ENCOUNTER 2019-02-09 03:51 | Inpatient (IN) | payer MEDICARE, OTHER ==
[~2019-02-09] VITALS: Ht 111.8 cm; Wt 65.8 kg
[~2019-02-09 03:51] MED LIST: ASPIRIN81 MG PO; CIPRO500 MG PO; CRESTOR10 MG PO; FENOFIBRATE145 MG PO; FLAGYL250 MG PO; HUMALOG100 UNIT/1 SQ; LEVEMIR100 UNIT/1 SQ; METOPROLOL TART25 MG PO; PLAVIX75 MG PO
[2019-02-09] MEDS ORDERED: ASPIRIN 81 MG CHEW TAB PO ONE (04:00)
[2019-02-09 04:30] LABS: BASOPHILS % 0.4 % (0.0-1.0); EOSINOPHILS # (AUTO) 0.9 (0.0-0.4); EOSINOPHILS % 10.5 % (0.0-6.0); HEMOGLOBIN 11.7 g/dL (12.0-16.0); LYMPHOCYTES # (AUTO) 2.4 (1.0-3.2); LYMPHOCYTES % 27.2 % (18.0-39.1); MEAN CORPUSCULAR HEMOGLOBIN 29.3 pg (28-32); MEAN CORPUSCULAR HGB CONC 33.4 g/dL (31-35); MEAN CORPUSCULAR VOLUME 87.7 fL (81-99); MONOCYTES # (AUTO) 0.7 (0.2-0.8); MONOCYTES % 8.2 % (4.4-11.3); NEUTROPHILS # (AUTO) 4.7 (2.1-6.9); NEUTROPHILS % 52.8 % (38.7-80.0); PLATELET COUNT 235 x10e3/uL (140-360); RED BLOOD COUNT 3.99 x10e6/uL (3.6-5.1); RED CELL DISTRIBUTION WIDTH 12.7 % (11.7-14.4)
[2019-02-09 04:45] LABS: ALBUMIN 3.2 g/dL (3.5-5.0); ALBUMIN/GLOBULIN RATIO 0.8 (0.8-2.0); ANION GAP 17.1 mmol/L (8-16); CREATININE, SERUM 1.21 mg/dL (0.57-1.11); POTASSIUM 4.1 mmol/L (3.5-5.1)
[2019-02-09 04:48] LABS: BILIRUBIN,URINE NEGATIVE (NEGATIVE); CLARITY,URINE CLOUDY (CLEAR); COLOR,URINE YELLOW (YELLOW); KETONES,URINE NEGATIVE (NEGATIVE); LEUKOCYTE ESTERASE ,URINE NEGATIVE (NEGATIVE); NITRITE,URINE NEGATIVE (NEGATIVE); PROTEIN,URINE DIPSTICK 2+ (NEGATIVE); URINE UROBILINOGEN 0.2 mg/dL (0.2 - 1)
[2019-02-09 04:50] LABS: CALCIUM 9.4 mg/dL (8.4-10.2)
[2019-02-09 04:52] LABS: CREATINE KINASE MB 1.4 ng/mL (0-5.0)
[2019-02-09 04:58] LABS: BACTERIA,URINE MANY /HPF; EPITHELIAL CELLS,URINE MODERATE /LPF; RBC,URINE 0-5 /HPF (0-5)
--- NOTE | 2019-02-09 05:06 | Diagnostic Imaging Report ---
EXAMINATION: CHEST SINGLE (NOT PORTABLE) INDICATION: Chest pain COMPARISON: Abdominal CT 08/23/2018 FINDINGS: AP view TUBES and LINES: None. LUNGS: Lungs are well inflated. Lungs are clear. There is no evidence of pneumonia or pulmonary edema. PLEURA: No pleural effusion or pneumothorax. HEART AND MEDIASTINUM: The cardiomediastinal silhouette is unremarkable. Thoracic aortic calcifications. BONES AND SOFT TISSUES: No acute osseous lesion. Soft tissues are unremarkable. UPPER ABDOMEN: No free air under the diaphragm. IMPRESSION: No acute thoracic radiographic abnormality. Signed by: James Burkett DO on 02/09/2019 5:02 AM
[2019-02-09] MEDS ORDERED: ONDANSETRON HCL INJ 2MG/ML 2ML 2 MG/ML VIAL IV PRN (05:15)
--- NOTE | 2019-02-09 07:39 | NUR ---
NUMEROUS CALL BELLS AND CONCERNS ANSWERED BY NUMEROUS STAFF. ALL CONCERNS CONTINULLY ACCESSED. DAUGHTER WANDERING HALLWAYS AND WALKING TO STAFF IN OTHER ROOMS. PT DIAPER REQUEST DONE IMMEDIATELY AND FOUND TO BE DRY AND AFTER PT'S DAUGHTER STATES SHE DIDNT LIKE POSITION OF HER DIAPER SHE ARRIVED WITH AND WAS "TOO TIGHT." THIS WAS DIAPER FROM HOME. NUMEROUS CONCERNS OF WHAT TIME FOOD TRAY COMES ADDRESSED AND NUMEROUS CALLS TO KITCHEN DONE FOR PT SATISFACTION. STATED CONCERN OF BS. EXPLAINED 256 BS AND WOULD ADDRESS ONCE TRAYS ARRIVED FOR PT SAFTY. DAUGHTER CONTINUES HITTING CALL MILLER AND ADDRESSING STAFF. CONTINUE TO ADDRESS CONCERNS.
[2019-02-09] MEDS ORDERED: DEXTROSE 50% SYRINGE 50 ML IV PRN (09:45)
[2019-02-09] MEDS: INSULIN LISPRO 100 UNIT/1 ML 3ML VIAL SQ SCH ×3 (11:12→21:55)
--- NOTE | 2019-02-09 12:15 | NUR ---
PATIENT PLACED ON WAFFLE
[2019-02-09 12:58] LABS: CREATINE KINASE MB 3.4 ng/mL (0-5.0)
--- NOTE | 2019-02-09 14:08 | NUR ---
BEDSIDE REPORT TO TERI Solomon
[2019-02-09] MEDS ORDERED: METOPROLOL TARTRATE 25 MG TAB PO SCH (17:00)
--- NOTE | 2019-02-09 17:15 | NUR ---
MEAL PROVIDED TO PT. PT SITTING UP IN BED, TOLERATING WELL. NAD NOTED. WILL CONTINUE TO MONITOR. PT'S DAUGHTER IS AT BEDSIDE.
--- NOTE | 2019-02-09 19:15 | NUR ---
REPORT GIVEN TO MILO HEAD YARDAGE CALLER NURSE.
[2019-02-09 20:05] LABS: CREATINE KINASE MB 2.6 ng/mL (0-5.0)
--- NOTE | 2019-02-09 20:08 | NUR ---
dr simone su called regarding ua. no new orders at this time.
--- NOTE | 2019-02-09 20:25 | NUR ---
Received patient from ER via stretcher, awake, alert and able to follow commands. Daughter and son at the bedside. Patient admitted with a diagnosis of CP but currently denies any CP. POC discussed with patient and family. They were reminded Dr. Caban scheduled patient for stress test tomorrow, NPO after midnight, no caffeine. All verbalized understanding. Patient given bath and linen changed as she was incontinent of urine. Patient tolerated well. Bed in lowest position, locked and call li within reach.
[2019-02-09 20:35] VITALS: BP 165/53
[2019-02-09 20:58] VITALS: BP 140/66
[2019-02-09 21:27] VITALS: BP 140/66
[2019-02-09] MEDS: CRESTOR 10MG PO SCH (21:55)
[2019-02-09 23:39] VITALS: BP 188/77
[2019-02-10] VITALS (8 sets, daily range): BP systolic 140–185; BP diastolic 66–78
--- NOTE | 2019-02-10 02:57 | Consultation ---
DATE OF CONSULTATION: 02/09/2019 Cardiology Consultation REQUESTING PHYSICIAN: Dr. Grullon. REASON FOR CONSULTATION: Chest pain. HISTORY OF PRESENT ILLNESS: This is an 83-year-old woman with hypertension, diabetes, hyperlipidemia, and peripheral arterial disease, who presents with chest pain. The patient began to experience chest pain yesterday evening around 11:00 p.m. This is associated with shortness of breath, nausea, and diaphoresis. She states the pain was 10/10 in severity and radiated to her back, lasting approximately 1 hour. She has had one prior episode of chest pain approximately one year prior. Family does not know what the ultimate diagnosis of this episode approximately one year prior. Otherwise, does not endorse chest pain in the interim. REVIEW OF SYSTEMS: Negative except as per HPI. PAST MEDICAL HISTORY: Hypertension, hyperlipidemia, diabetes mellitus, peripheral arterial disease, status post left BKA and right AKA. PAST SURGICAL HISTORY: 1. Cholecystectomy. 2. Right AKA, left BKA. SOCIAL HISTORY: She quit smoking earlier this year. Previously smoked two packs a day since the age of 10. No alcohol or illicit drugs. FAMILY HISTORY: Denies family history of heart disease. ALLERGIES: PLEASE SEE EMR. MEDICATIONS: Please see medication list. PHYSICAL EXAMINATION: VITAL SIGNS: Temperature 97.8 degrees, pulse 69, respiratory rate 20, blood pressure 155/56, and oxygen saturation 100%. GENERAL: Elderly woman, in no acute distress, well developed, well nourished. HEENT: Normocephalic, atraumatic. Pupils equal. No scleral icterus. NECK: Supple. No thyroid or cervical lymphadenopathy. No carotid bruits. LUNGS: Clear to auscultation bilaterally. No wheezes or crackles. CARDIOVASCULAR: Normal rate. Regular rhythm. No murmur. Normal S1, S2. ABDOMEN: Soft, nontender. EXTREMITIES: No edema, status post left BKA, right AKA. LABORATORY DATA: WBC 8.95, hemoglobin 11.7, hematocrit 35, platelets 235. Sodium 134, potassium 4.1, chloride 101, CO2 of 20, BUN 22, creatinine 1.21. Troponin 0.579. Chest x-ray, normal sinus rhythm, ST abnormality, possible digitalis effect. IMPRESSION: 1. Non-ST elevation myocardial infarction. 2. Peripheral arterial disease. 3. Hypertension. 4. Hyperlipidemia. 5. Diabetes mellitus. 6. Acute kidney injury. RECOMMENDATIONS: Continue trending cardiac markers until downtrending. Obtain echocardiogram. Continue aspirin and metoprolol. Continue rosuvastatin. The patient's blood pressure is not well controlled. Increase metoprolol. Start lisinopril once BURTON resolves. Monitor the patient closely on telemetry. Discussed risks and benefits of cardiac catheterization with the patient and daughter. The patient has elected for conservative medical therapy at this time. On speaking with the patient and family, the patient is mostly bed bound, although will sit in a wheelchair. She is mostly assisted in her ADLs by her daughter and has not reported any chest pain prior to this episode. Reassess symptoms with blood pressure control. Discuss possibility of nuclear stress test for risk stratification. Thank you for this consult. We will continue to follow. Anna Caban MD ABS/MODL /[id number]
[2019-02-10 06:08] LABS: CHOL/HDL RATIO 6.2 (3.0-3.6)
[2019-02-10] MEDS: INSULIN LISPRO 100 UNIT/1 ML 3ML VIAL SQ SCH ×5 (08:06→20:17)
[2019-02-10] MEDS: METOPROLOL TARTRATE 50 MG TAB PO SCH ×2 (08:10→17:55)
--- NOTE | 2019-02-10 08:11 | NUR ---
beta luanne held for stress test.
[2019-02-10] MEDS ORDERED: ONDANSETRON HCL 4 MG ORAL DISINTEGRATING TAB PO PRN (08:15)
[2019-02-10] MEDS ORDERED: METOPROLOL TARTRATE 25 MG TAB PO SCH (09:00)
[2019-02-10 13:15] LABS: CALCIUM 9.4 mg/dL (8.4-10.2); CREATININE, SERUM 1.2 mg/dL (0.57-1.11)
[2019-02-10] MEDS ORDERED: REGADENOSON 0.4 MG/5 ML SYR IV ONE (15:48)
--- NOTE | 2019-02-10 16:22 | Progress Note ---
DATE: 02/10/2019 Cardiology Progress Note SUBJECTIVE: The patient denies chest pain or shortness of breath. OBJECTIVE: VITAL SIGNS: Temperature 96.7 degrees, pulse 67, respiratory rate of 17, blood pressure 165/72, oxygen saturation 96% on room air. GENERAL: Awake, alert, in no acute distress. LUNGS: Clear to auscultation bilaterally. No wheezes or crackles. CARDIOVASCULAR: Normal rate, regular rhythm. No murmur. Normal S1, S2. ABDOMEN: Soft, nontender. EXTREMITIES: No edema, status post left BKA and right AKA. CARDIAC MEDICATIONS: Rosuvastatin 10 mg p.o. at bedtime, metoprolol 150 mg p.o. b.i.d. LABORATORY DATA: Cholesterol 161, triglycerides 362, LDL 63, HDL 26. TELEMETRY: Normal sinus rhythm. IMPRESSION: 1. [id number] myocardial infarction. 2. Peripheral arterial disease. 3. Hypertension. 4. Hyperlipidemia. 5. Diabetes mellitus. 6. Acute kidney injury. RECOMMENDATIONS: 1. Continue current cardiac medications including aspirin, statin and beta-luanne. We will proceed with nuclear stress test to evaluate for any large areas of ischemia. Invasive cardiac catheterization was discussed with the patient and daughter. They elected for conservative medical therapy. The patient's blood pressure remains poorly controlled. Repeat BMP if creatinine has normalized, start VIDYA inhibitor. 2. LDL is at goal. Continue Crestor at current dose. Monitor the patient on telemetry. Thank you for this consult. We will continue to follow. Anna Caban MD ABS/MODL /[id number]
--- NOTE | 2019-02-10 19:30 | NUR ---
Dr. Grullon paged per patients daughter request for a laxative. She states its been two days since her last BM. Awaiting call back
--- NOTE | 2019-02-10 19:40 | NUR ---
Dr. Caban rounding and addressed elevated BP. New orders received see EMAR.
[2019-02-10] MEDS ORDERED: LOSARTAN POTASSIUM 25 MG TAB PO SCH (20:00)
[2019-02-10] MEDS: CRESTOR 10MG PO SCH (20:16)
--- NOTE | 2019-02-10 22:54 | Myoview Stress Test ---
DATE OF STUDY: 02/09/2019 19:23:00 Stress Test - Treadmill ONLY PROCEDURE MASTER: Rest/stress single isotope SPECT imaging with pharmacologic stress and gated SPECT imaging. INDICATION: [id number] myocardial infarction. PROCEDURE IN DETAIL: Pharmacologic stress testing was performed with regadenoson per protocol. The heart rate was 65 beats per minute at rest and increased to 80 beats per minute during the regadenoson infusion. The rest blood pressure was 193/66 mmHg and decreased to 131/59 mmHg, which is a normal response. The resting electrocardiogram demonstrated normal sinus rhythm. There were no ST-segment changes suggestive of myocardial ischemia. Myocardial perfusion imaging was performed at rest following the injection of 10 mCi of tetrofosmin. At peak pharmacologic effect, the patient was injected with 30 mCi of tetrofosmin. Gated post-stress tomographic imaging was performed. FINDINGS: The overall quality of study is fair. Left ventricular cavity is noted to be normal size on the rest and stress studies. SPECT images demonstrate homogeneous tracer distribution throughout the myocardium. Gated SPECT imaging reveals normal myocardial thickening and wall motion. Left ventricular ejection fraction was calculated to be 60%. IMPRESSION: Myocardial perfusion imaging is normal. Overall left ventricular systolic function was normal without regional wall motion abnormalities. Anna Caban MD ABS/MODL /[id number]
--- NOTE | 2019-02-10 23:00 | NUR ---
Patient had large BM. Patient and linen changed.
[2019-02-11] VITALS (8 sets, daily range): BP systolic 97–202; BP diastolic 57–83
[2019-02-11 05:46] LABS: BASOPHILS % 0.3 % (0.0-1.0); EOSINOPHILS # (AUTO) 0.9 (0.0-0.4); EOSINOPHILS % 9.9 % (0.0-6.0); HEMATOCRIT 33.4 % (34.2-44.1); LYMPHOCYTES # (AUTO) 2.7 (1.0-3.2); LYMPHOCYTES % 29.8 % (18.0-39.1); MEAN CORPUSCULAR HEMOGLOBIN 28.6 pg (28-32); MEAN CORPUSCULAR HGB CONC 32.9 g/dL (31-35); MONOCYTES # (AUTO) 0.7 (0.2-0.8); NEUTROPHILS # (AUTO) 4.7 (2.1-6.9); PLATELET COUNT 251 x10e3/uL (140-360); RED BLOOD COUNT 3.84 x10e6/uL (3.6-5.1); RED CELL DISTRIBUTION WIDTH 12.7 % (11.7-14.4)
[2019-02-11 06:22] LABS: ANION GAP 13.1 mmol/L (8-16); CALCIUM 9.2 mg/dL (8.4-10.2); CREATININE, SERUM 1.15 mg/dL (0.57-1.11); POTASSIUM 4.1 mmol/L (3.5-5.1)
--- NOTE | 2019-02-11 06:57 | NUR ---
Walking rounds and report given. Call li within reach.
[2019-02-11] MEDS: ASPIRIN 81 MG ENTERIC COATED PO SCH (07:45)
[2019-02-11] MEDS: METOPROLOL TARTRATE 50 MG TAB PO SCH ×3 (07:45→19:02)
[2019-02-11] MEDS: INSULIN LISPRO 100 UNIT/1 ML 3ML VIAL SQ SCH ×4 (07:45→20:33)
[2019-02-11] MEDS ORDERED: LOSARTAN POTASSIUM 25 MG TAB PO SCH (09:00)
--- NOTE | 2019-02-11 15:17 | NUR ---
patient transferred to floor. report called to Yennifer MARIE. all personal belongings gathered by family. vitals stable with no distress at time of transfer.
--- NOTE | 2019-02-11 15:30 | NUR ---
RECEIVED PT FROM 185; NO DISTRESS NOTED. DAUGHTER AT BEDSIDE.
--- NOTE | 2019-02-11 16:30 | NUR ---
BS COVERED WITH 6UNIT OF HUMALOG. PT OF TELE #7; SR 70. PT HAS A BKA TO LT LEG AND RT AKA
--- NOTE | 2019-02-11 19:15 | NUR ---
patient received awake, alert, lying quietly in bed. respirations even and unlabored. no c/o pain noted at this time. pm assessment complete. side rails up x 3 and bed alarm remains on for safety. call li placed within reach. patient instructed to call for assistance when needed.
[2019-02-11] MEDS: CRESTOR 10MG PO SCH (20:33)
[2019-02-12] VITALS: BP 182/79
--- NOTE | 2019-02-12 | NUR ---
bp 182/79 hr 60 call placed to cardiology cast iron drain pipe layer for Paula. no return call noted.
--- NOTE | 2019-02-12 00:28 | Progress Note ---
DATE: 02/11/2019 Cardiology Progress Note SUBJECTIVE: The patient denies chest pain or shortness of breath. OBJECTIVE: VITAL SIGNS: Temperature 97.8 degrees, pulse 57, respiratory rate 20, blood pressure 173/57, and oxygen saturation 95% on room air. GENERAL: Awake, alert, in no acute distress. LUNGS: Clear to auscultation bilaterally. No wheezes or crackles. CARDIOVASCULAR: Normal rate, regular rhythm. No murmur. Normal S1, S2. ABDOMEN: Soft, nontender. EXTREMITIES: No edema, status post left BKA and right AKA. CARDIAC MEDICATIONS: Rosuvastatin 10 mg p.o. at bedtime, metoprolol 150 mg p.o. b.i.d., losartan 25 mg p.o. daily, aspirin 81 mg p.o. daily. LABORATORY DATA: WBC 9.17, hemoglobin and hematocrit , platelets 251. Sodium 136, potassium 4.1, chloride 103, CO2 of 24, BUN 23, creatinine 1.15. TELEMETRY: Normal sinus rhythm. ASSESSMENT: 1. Non-ST elevation myocardial infarction. 2. Peripheral arterial disease. 3. Hypertension, uncontrolled. 4. Dyslipidemia. 5. Diabetes mellitus. 6. Acute kidney injury on chronic kidney disease. PLAN/RECOMMENDATIONS: Continue aspirin and statin. We will increase losartan as well as metoprolol as the patient's blood pressure remains poorly controlled. The patient's nuclear stress test was without any evidence of ischemia in addition invasive cardiac catheterization was previously discussed with the patient and the daughter. They elected for conservative medical therapy. Monitor patient on telemetry while admitted. The patient can be discharged home once blood pressure is controlled. Thank you for this consult. We will continue to follow. Anna Caban MD ABS/MODL /[id number]
--- NOTE | 2019-02-12 04:00 | NUR ---
michelle 182/73 hr 60 still no return call received from cardiology re: elevated bp.
--- NOTE | 2019-02-12 07:00 | NUR ---
BEDSIDE SHIFT REPORT RECEIVED FROM THE CHANNEL ACCOUNT MANAGER RN. EDUCATED PT ABOUT FALL PRECAUTIONS. BED ALARM IS ON. CALL LIGHT WITH IN EASY REACH. INSTRUCTED PT TO CALL FOR ANY NEEDS. PT DENIES NEEDS AT THIS TIME.
[2019-02-12 08:00] VITALS: BP 172/63
[2019-02-12] MEDS: INSULIN LISPRO 100 UNIT/1 ML 3ML VIAL SQ SCH ×2 (08:30→13:00)
[2019-02-12] MEDS: ASPIRIN 81 MG ENTERIC COATED PO SCH (08:37)
[2019-02-12 08:40] VITALS: BP 172/63
[2019-02-12] MEDS ORDERED: CARVEDILOL 12.5 MG TAB PO SCH (09:00)
[2019-02-12] MEDS ORDERED: LOSARTAN POTASSIUM 25 MG TAB PO SCH (09:00)
[2019-02-12 11:40] VITALS: BP 108/57
[2019-02-12 14:15] VITALS: BP 146/60
--- NOTE | 2019-02-12 14:30 | NUR ---
OKAY TO D/C PT IF SBP BELOW 160 FOR AFTER NOON VITAL SIGNS.
--- NOTE | 2019-02-12 14:40 | NUR ---
THONY TO D/C PT PER DR. CALDERA
[2019-02-12] MEDS ORDERED: CARVEDILOL12.5 MG PO (14:44)
[2019-02-12] MEDS ORDERED: LOSARTAN POTASS25 MG PO (14:45)
--- NOTE | 2019-02-12 15:02 | NUR ---
PT FAMILY REQUESTED TO STAY ONE HOUR AT THE HOSPITAL DUE TO WEATHER AND TRANSPORTATION ARRANGEMENTS
--- NOTE | 2019-02-12 15:45 | NUR ---
PT DISCHARGED HOME SAFELY WITH HER DAUGHTER. PT ESCORTED TO THE CAR AND TRANSFERRED TO THE CAR SAFELY PER THE REQUEST FROM THE FAMILY. IV AND TELE REMOVED.TIP INTACT. NO BLEEDING NOTED. DRESSING APPLIED. PT DENIED FURTHER NEEDS.
[2019-02-12 16:00] VITALS: BP 146/60
--- NOTE | 2019-02-13 02:41 | Progress Note ---
DATE: 02/12/2019 Cardiology progress note SUBJECTIVE: The patient denies chest pain or shortness of breath. OBJECTIVE: VITAL SIGNS: Reviewed. GENERAL: Elderly woman, awake, alert, in no acute distress. LUNGS: Clear to auscultation bilaterally. No wheezes or crackles. CARDIOVASCULAR: Normal rate, regular rhythm. No murmur. Normal S1, S2. ABDOMEN: Soft, nontender. EXTREMITIES: No edema. TELEMETRY: Sinus bradycardia. IMPRESSION: 1. Hypertension, uncontrolled. 2. [id number] myocardial infarction. RECOMMENDATIONS: The patient's blood pressure medication has been adjusted. Monitor response. If blood pressure is controlled, the patient can be discharged from a cardiac standpoint. Further titration of antihypertensive therapy as an outpatient. Continue medical management per the patient preference. Thank you for this consult. We will continue to follow. Anna Caban MD ABS/MODL /[id number]
== END 2019-02-12 16:00 | disposition home or self-care (01) | DRG 280 ==
LOC: ER 03:51 → ERHOLD 05:03 → IMCU 20:25 → OBSVTOIN 02-10 09:17 → MED/SURG3 02-11 15:18
DX: I21.4 Non-ST elevation (NSTEMI) myocardial infarction (principal); I50.33 Acute on chronic diastolic (congestive) heart failure; N17.9 Acute kidney failure, unspecified; I13.0 Hypertensive heart and chronic kidney disease with heart failure and stage 1 through stage 4 chronic kidney disease, or unspecified chronic kidney disease; E11.51 Type 2 diabetes mellitus with diabetic peripheral angiopathy without gangrene; E78.5 Hyperlipidemia, unspecified; Z89.512 Acquired absence of left leg below knee; Z89.611 Acquired absence of right leg above knee; Z90.49 Acquired absence of other specified parts of digestive tract; Z87.891 Personal history of nicotine dependence; N18.9 Chronic kidney disease, unspecified; E11.22 Type 2 diabetes mellitus with diabetic chronic kidney disease; Z79.82 Long term (current) use of aspirin; Z79.4 Long term (current) use of insulin; Z88.0 Allergy status to penicillin; Z88.8 Allergy status to other drugs, medicaments and biological substances; Z91.048 Other nonmedicinal substance allergy status
CPT/HCPCS: 36415; 71045; 78452; 80048; 80053; 80061; 81001; 82550; 82553; 82948; 83880; 84484; 85025; 87086; 93005; 93017; 93306; 99284; A9502; G0378

== ENCOUNTER 2019-12-24 16:23 | Inpatient (IN) | payer MEDICARE, OTHER ==
[~2019-12-24] VITALS: Ht 152.4 cm; Wt 60.0 kg
[~2019-12-24 16:23] MED LIST changes: +CARVEDILOL12.5 MG PO; +LOSARTAN POTASS25 MG PO
[2019-12-24 17:25] LABS: BASOPHILS % 0.3 % (0.0-1.0); EOSINOPHILS # (AUTO) 1.5 (0.0-0.4); EOSINOPHILS % 16.1 % (0.0-6.0); HEMATOCRIT 35.1 % (34.2-44.1); HEMOGLOBIN 11.5 g/dL (12.0-16.0); LYMPHOCYTES # (AUTO) 1.9 (1.0-3.2); LYMPHOCYTES % 20.9 % (18.0-39.1); MEAN CORPUSCULAR HEMOGLOBIN 27.4 pg (28-32); MEAN CORPUSCULAR HGB CONC 32.8 g/dL (31-35); MEAN CORPUSCULAR VOLUME 83.8 fL (81-99); MONOCYTES # (AUTO) 0.8 (0.2-0.8); MONOCYTES % 8.8 % (4.4-11.3); NEUTROPHILS # (AUTO) 4.8 (2.1-6.9); NEUTROPHILS % 52.5 % (38.7-80.0); PLATELET COUNT 249 x10e3/uL (140-360); RED BLOOD COUNT 4.19 x10e6/uL (3.6-5.1); RED CELL DISTRIBUTION WIDTH 13.4 % (11.7-14.4)
[2019-12-24 17:29] LABS: INR 0.87; PROTHROMBIN TIME 12.3 seconds (11.9-14.5)
[2019-12-24 17:30] LABS: PARTIAL THROMBOPLASTIN TIME 28.5 seconds (23.8-35.5)
[2019-12-24 17:39] LABS: ALBUMIN 2.6 g/dL (3.5-5.0); ALBUMIN/GLOBULIN RATIO 0.6 (0.8-2.0); ANION GAP 17.8 mmol/L (8-16); CALCIUM 8.5 mg/dL (8.4-10.2); CREATININE, SERUM 1.3 mg/dL (0.57-1.11); POTASSIUM 4.8 mmol/L (3.5-5.1)
--- NOTE | 2019-12-24 17:42 | Diagnostic Imaging Report ---
EXAMINATION: CHEST SINGLE (PORTABLE) INDICATION: Chest pain COMPARISON: Multiple prior radiographs including most recent on 02/09/2019. FINDINGS: TUBES and LINES: None. LUNGS: Low lung volumes with bronchovascular crowding. There is hazy opacification of the right infrahilar region. Bibasilar atelectasis. PLEURA: No pleural effusion or pneumothorax. HEART AND MEDIASTINUM: The cardiomediastinal silhouette is unchanged. Atherosclerotic calcification of the thoracic aortic arch. BONES AND SOFT TISSUES: No acute osseous lesion. Soft tissues are unremarkable. UPPER ABDOMEN: No free air under the diaphragm. IMPRESSION: Hazy opacification at the right infrahilar region may represent atelectasis and/or pneumonia in the proper clinical setting. Signed by: Juliano Payton MD on 12/24/2019 5:39 PM
[2019-12-24 17:45] LABS: CREATINE KINASE MB 1.2 ng/mL (0-5.0)
[2019-12-24] MEDS ORDERED: DILTIAZEM HCL 5 MG/ML 5 ML VIAL IV NR (17:45)
--- NOTE | 2019-12-24 17:54 | Emergency Department Note ---
History of Present Illnes History of Present Illness Chief Complaint: General Medicine Complaints History of Present Illness This is a 84 year old female arrived to the ED with complaints of chest pain started just SLOT FLOOR PERSON. 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 Any updates have been documented here. Past Medical History Recent Fever: No Clinical Suspicion of Infectio: No New/Unexplained Change in Ment: No Past Medical History: Hypertension, Diabetes, CVA, CAD, Hyperlipedemia Other Medical History: PERIPHERAL ARTERY DISEASE Past Surgical History: Cholecysctectomy Other Surgery: right AKA left BKA Social History Smoking Cessation: Never Smoker Counseling Performed: No Alcohol Use: None Any Illegal Drug Use: No Physically hurt or threatened: No Other Any Pre-Existing Lines (PICC,: No Review of Systems Review of Systems Constitutional: Reports no symptoms EENTM: Reports no symptoms Cardiovascular: Reports as per HPI Respiratory: Reports no symptoms Gastrointestinal: Reports no symptoms Genitourinary: Reports no symptoms Musculoskeletal: Reports no symptoms Integumentary: Reports no symptoms Neurological: Reports no symptoms Psychological: Reports no symptoms Endocrine: Reports no symptoms Hematological/Lymphatic: Reports no symptoms Review of other systems: All other systems negative Physical Exam Related Data Allergies: Coded Allergies: Penicillins (Verified Allergy, Unknown, 08/23/18) cyanocobalamin (vitamin B12) (Verified Allergy, Unknown, 08/25/18) Triage Vital Signs Vital Signs Date Time Temp Pulse Resp B/P (MAP) Pulse Ox O2 Delivery O2 Flow Rate FiO2 12/24/19 16:50 97.8 145 26 122/99 98 Room Air Vital signs reviewed: Yes Physical Exam CONSTITUTIONAL Constitutional: Present well-developed, Present well-nourished HENT HENT: Present normocephalic, Present atraumatic, Present oropharynx clear/moist, Present nose normal HENT L/R: Present left ext ear normal, Present right ext ear normal EYES Eyes: Reports PERRL, Reports conjunctivae normal NECK Neck: Present ROM normal PULMONARY Pulmonary: Present effort normal, Present breath sounds normal CARDIOVASCULAR Cardiovascular: Present regular rhythm, Present heart sounds normal, Present capillary refill normal, Present normal rate GASTROINTESTINAL Abdominal: Present soft, Present nontender, Present bowel sounds normal GENITOURINARY Genitourinary: Present exam deferred SKIN Skin: Present warm, Present dry MUSCULOSKELETAL Musculoskeletal: Present ROM normal NEUROLOGICAL Neurological: Present alert, Present oriented x 3, Present no gross motor or sensory deficits PSYCHOLOGICAL Psychological: Present mood/affect normal, Present judgement normal Results Laboratory Result Diagram: 12/24/19 1712 12/24/19 1712 Laboratory Laboratory Tests Test 12/24/19 17:12 White Blood Count 9.07 x10e3/uL (4.8-10.8) Red Blood Count 4.19 x10e6/uL (3.6-5.1) Hemoglobin 11.5 g/dL (12.0-16.0) Hematocrit 35.1 % (34.2-44.1) Mean Corpuscular Volume 83.8 fL (81-99) Mean Corpuscular Hemoglobin 27.4 pg (28-32) Mean Corpuscular Hemoglobin Concent 32.8 g/dL (31-35) Red Cell Distribution Width 13.4 % (11.7-14.4) Platelet Count 249 x10e3/uL (140-360) Neutrophils (%) (Auto) 52.5 % (38.7-80.0) Lymphocytes (%) (Auto) 20.9 % (18.0-39.1) Monocytes (%) (Auto) 8.8 % (4.4-11.3) Eosinophils (%) (Auto) 16.1 % (0.0-6.0) Basophils (%) (Auto) 0.3 % (0.0-1.0) Neutrophils # (Auto) 4.8 (2.1-6.9) Lymphocytes # (Auto) 1.9 (1.0-3.2) Monocytes # (Auto) 0.8 (0.2-0.8) Eosinophils # (Auto) 1.5 (0.0-0.4) Basophils # (Auto) 0.0 (0.0-0.1) Absolute Immature Granulocyte (auto 0.13 x10e3/uL (0-0.1) Prothrombin Time 12.3 seconds (11.9-14.5) Prothromb Time International Ratio 0.87 Activated Partial Thromboplast Time 28.5 seconds (23.8-35.5) Sodium Level 124 mmol/L (136-145) Potassium Level 4.8 mmol/L (3.5-5.1) Chloride Level 91 mmol/L (98-107) Carbon Dioxide Level 20 mmol/L (22-29) Anion Gap 17.8 mmol/L (8-16) Blood Urea Nitrogen 13 mg/dL (7-26) Creatinine 1.30 mg/dL (0.57-1.11) Estimat Glomerular Filtration Rate 39 ML/MIN (60-) BUN/Creatinine Ratio 10 (6-25) Glucose Level 275 mg/dL (74-118) Calcium Level 8.5 mg/dL (8.4-10.2) Total Bilirubin 0.2 mg/dL (0.2-1.2) Aspartate Amino Transf (AST/SGOT) 35 IU/L (5-34) Alanine Aminotransferase (ALT/SGPT) 23 IU/L (0-55) Alkaline Phosphatase 81 IU/L (40-150) Creatine Kinase 21 IU/L (29-168) Total Protein 7.2 g/dL (6.5-8.1) Albumin 2.6 g/dL (3.5-5.0) Globulin 4.6 g/dL (2.3-3.5) Albumin/Globulin Ratio 0.6 (0.8-2.0) Lab results reviewed: Yes Procedures 12 Lead ECG Interpretation ECG Interpretation : ECG: ECG 1 Prior ECG tracings: reviewed Rhythm: sinus tachycardia Rate: tachycardia QRS axis: normal ST segments normal: Yes Clinical Impression: abnormal ECG Assessment & Plan Medical Decision Making MDM 84-year-old female arrived chest pain- pain began this prior to arrival, patient is a high heart score. No elevated WBC count noted. Chest x-ray does show questionable pneumonia but clinically patient does not have 1 given no history of cough, no white count, and no fever. Assessment & Plan Final Impression: (1) Atrial fibrillation (2) Chest pain Depart Disposition: ADMITTED Last Vital Signs Date Time Temp Pulse Resp B/P (MAP) Pulse Ox O2 Delivery O2 Flow Rate FiO2 12/24/19 16:50 97.8 145 26 122/99 98 Room Air Home Meds Reported Medications Losartan Potassium (LOSARTAN POTASSIUM) 25 Mg Tablet, 50 MG PO BID 02/12/19 Carvedilol (CARVEDILOL) 12.5 Mg Tablet, 12.5 MG PO BID, #60 TAB 02/12/19 Insulin Detemir (LEVEMIR) 100 Unit/1 Ml Vial, 22 UNIT SQ HS 08/23/18 Insulin Detemir (LEVEMIR) 100 Unit/1 Ml Vial, 25 UNIT SQ ACB 08/23/18 Insulin Lispro (HUMALOG) 100 Unit/1 Ml Cartridge, 12-14 UNIT SQ AC 08/23/18 Metoprolol Tartrate (METOPROLOL TARTRATE) 25 Mg Tablet, 25 MG PO BID, TAB 08/23/18 Rosuvastatin Calcium (CRESTOR) 10 Mg Tab, 20 MG PO DAILY THERAPEUTICALLY SUBSTITUTED WITH SIMVASTATIN 40MG 08/23/18 Aspirin (ASPIRIN) 81 Mg Tab.chew, 81 MG PO DAILY 08/23/18 Clopidogrel Bisulfate* (PLAVIX) 75 Mg Tablet, 75 MG PO DAILY, #30 TAB 08/23/18 Fenofibrate Nanocrystallized (FENOFIBRATE) 145 Mg Tablet, 145 MG PO DAILY 08/23/18 BROOKLYN GARCIA, DO Dec 24, 2019 17:54
--- NOTE | 2019-12-24 21:15 | NUR ---
Patient arrived to the unit from ED to Rm 285 as a new admit. Admitting diagnosis is chest pain. Patient alert and oriented x3 and pakistani speaking only. Pt has BLE amputation (right AKA, left BKA). Pt denies any discomfort or pain at this time. Pt stated she's hungry and will be fed with snacks tonight. Call li within reach. Bed alarm active.
[2019-12-24 21:30] VITALS: BP 170/60
[2019-12-24 22:50] VITALS: BP 181/55
--- NOTE | 2019-12-24 22:58 | NUR ---
Spoke with Dr. Ismael Grullon (via louie phone) about patient's elevated BP (181/55). MD aware and ordered to just continue patient's home meds and given own BP meds tonight. MD aware fingerstick blood glucose was 206 and MD refused to order sliding scale. MD stated that home med insulin will suffice.
[2019-12-24] MEDS: LOSARTAN POTASSIUM 25 MG TAB PO SCH (23:34)
[2019-12-24] MEDS: CARVEDILOL 12.5 MG TAB PO SCH (23:34)
[2019-12-24] MEDS: METOPROLOL TARTRATE 25 MG TAB PO SCH (23:34)
[2019-12-25] VITALS (7 sets, daily range): BP systolic 105–154; BP diastolic 47–71
[2019-12-25 00:20] LABS: CLARITY,URINE CLOUDY (CLEAR); COLOR,URINE YELLOW (YELLOW)
[2019-12-25 00:21] LABS: BILIRUBIN,URINE NEGATIVE (NEGATIVE); KETONES,URINE NEGATIVE (NEGATIVE); LEUKOCYTE ESTERASE ,URINE TRACE (NEGATIVE); NITRITE,URINE NEGATIVE (NEGATIVE); PROTEIN,URINE DIPSTICK >=300 (NEGATIVE); URINE UROBILINOGEN 0.2 mg/dL (0.2 - 1)
[2019-12-25 00:27] LABS: BACTERIA,URINE MANY /HPF; EPITHELIAL CELLS,URINE FEW /LPF; RBC,URINE 0-5 /HPF (0-5)
[2019-12-25 01:56] LABS: CREATINE KINASE MB 3.7 ng/mL (0-5.0)
[2019-12-25] MEDS ORDERED: INSULIN LISPRO SQ SCH (07:30)
[2019-12-25] MEDS: INSULIN GLARGINE 100 UNITS/ML VIAL SQ SCH ×2 (07:30→20:58)
--- NOTE | 2019-12-25 08:00 | NUR ---
RECEIVED BEDSIDE SHIFT REPORT WITH OFF GOING NIGHT NURSE. PATIENT IN STABLE CONDITION, NO S/S OF DISTRESS NOTED. TELEMETRY APPLIED. NOTED RIGHT AKA AND LEFT BKA. IV SITE TO THE LEFT FOREARM ASYMPTOMATIC AND PATENT, TRANSPARENT DRESSING C/D/I. BED ALARM APPLIED. BED IN LOWEST POSITION AND LOCKED, SIDE RAILS X2. CALL LIGHT WITHIN REACH.
[2019-12-25] MEDS: ASPIRIN 81 MG CHEW TAB PO SCH (08:41)
[2019-12-25] MEDS: CARVEDILOL 12.5 MG TAB PO SCH ×2 (08:42→16:27)
[2019-12-25] MEDS: METOPROLOL TARTRATE 25 MG TAB PO SCH ×2 (08:43→16:28)
[2019-12-25] MEDS: LOSARTAN POTASSIUM 25 MG TAB PO SCH ×2 (08:43→16:27)
[2019-12-25] MEDS: CLOPIDOGREL BISULFATE 75 MG TAB PO SCH (08:43)
[2019-12-25] MEDS: FENOFIBRATE 145 MG TAB PO SCH (08:44)
[2019-12-25] MEDS: SIMVASTATIN 20 MG TAB PO SCH (08:44)
[2019-12-25 10:18] LABS: CREATINE KINASE MB 3.2 ng/mL (0-5.0)
[2019-12-25] MEDS ORDERED: MAGNESIUM HYDROXIDE 30 ML UDC PO ONE (12:00)
[2019-12-25] MEDS: INSULIN LISPRO 100 UNIT/1 ML 3ML VIAL SQ SCH ×2 (12:04→16:30)
[2019-12-25] MEDS: AMIODARONE HCL 200 MG TAB PO SCH (16:27)
[2019-12-25 17:02] LABS: CHOL/HDL RATIO 6.6 (3.0-3.6)
[2019-12-25 17:22] LABS: THYROID STIMULATING HORMONE 2.6 uIU/mL (0.350-4.940)
--- NOTE | 2019-12-25 17:49 | Consultation ---
DATE OF CONSULTATION: 12/25/2019 REASON FOR CONSULTATION: Chest pain and elevated troponin. HISTORY OF PRESENT ILLNESS: This is an 84-year-old female with history of severe CAD, peripheral vascular disease, status post bilateral BKAs, carotid disease, hypertension, hyperlipidemia, and diabetes. The patient presents to [facility] ER with complaints of chest pain, was noted in atrial fibrillation with RVR with a heart rate of 140, was given diltiazem with conversion of rhythm to sinus rhythm. Troponins were noted to be 0.04. Cardiology was consulted to evaluate the patient. The patient was seen in room, reports she is chest pain-free. However, prior to coming to the hospital, felt palpitations with some chest tightness, was not relieved after an hours, so therefore was brought to the ER for further evaluation. Of note, the patient has been on medical therapy since 2013. In fact, the patient was here in January 2019 with chest pain, underwent ischemic evaluation, left heart catheterization was discussed with the patient and patient opted for continued medical therapy. Discussed at length with patient regarding ischemic evaluation. She reports that she is comfortable at this time and only wants medications. Also discussed with patient's daughter, Mrs. Giovanna Robles. PAST MEDICAL HISTORY: CAD, peripheral vascular disease, carotid artery disease, hypertension, diabetes, and hyperlipidemia. PAST SURGICAL HISTORY: Cholecystectomy, bilateral BKAs. SOCIAL HISTORY: She is a . Lives with her daughter. Former smoker. No alcohol use. FAMILY HISTORY: Denies any history of heart disease, stroke, or cancer. ALLERGIES: PENICILLIN. HOME MEDICATIONS: Aspirin 81 mg daily, carvedilol 12.5 mg b.i.d., Plavix 75 mg daily, fenofibrate 145 mg daily, Levemir 20 units at bedtime, lispro 12 to 14 units with meals, losartan 50 mg b.i.d., and Crestor 20 mg daily. REVIEW OF SYSTEMS: GENERAL: Denies any weight change, fever, chills, or night sweats, night sweats. SKIN: Denies any sores or rashes. HEENT: Denies any nausea, vomiting, vision changes, blurred vision, double vision, epistaxis, sore throat, or swollen neck. CARDIAC: Chest pain as above. Positive palpitations. Denies any orthopnea, PND, or lower extremity edema. RESPIRATORY: Denies any shortness of breath, coughing, wheezing, or hemoptysis. GI: Reports poor appetite. Denies any melena, tarry bloody stools, dysuria, or hematuria. VASCULAR: Positive for bilateral BKAs. MUSCULOSKELETAL: Generalized joint pains, back pains. NEUROLOGIC: Denies any tremors, paralysis, fainting, or blackouts. ENDOCRINE: Denies heat or cold intolerance, polyuria, polydipsia, or polyphagia. PHYSICAL EXAMINATION: VITAL SIGNS: Weight 132 pounds, temperature 98.0, pulse 56, respiratory rate 16, blood pressure 120/47, and pulse ox 98% on room air. GENERAL APPEARANCE: Stated age, reliable informant. No acute distress. SKIN: No rashes or bruises noted. HEENT: Normocephalic. Pupils are equal and reactive to light. Extraocular movements are intact. Trachea midline. Positive carotid bruit bilaterally. HEART: Regular rate and rhythm. Soft systolic murmur heard in the right upper sternal border. LUNGS: Bilateral breath sounds are clear to auscultation. ABDOMEN: Soft, nontender, and nondistended. No organomegaly noted. VASCULAR: +2 radial pulses bilaterally. +1 femoral pulses bilaterally. The patient with bilateral BKAs. NEUROLOGIC: Cranial nerves II through XII seem intact. LABORATORY DATA: Sodium 134, potassium 4.8, chloride 91, bicarb 20, BUN 13, and creatinine 1.3. Troponin 0.02, next 0.4, next 0.4. White count 9, hemoglobin 11, hematocrit 35, and platelets 249. PT 12, INR 0.8, and PTT 28. COVID-19 PCR is pending. Chest x-ray showing right infrahilar opacity. EKG showing atrial fibrillation with RVR with rate 140. ASSESSMENT: 1. Atrial fibrillation with rapid ventricular response. 2. Coronary artery disease. 3. Demand myocardial infarction, type 2. 4. Hyperlipidemia. 5. Diabetes. 6. Severe peripheral vascular disease, status post bilateral below the knee amputations. PLAN: 1. The patient presents to [facility] ER with complaints of chest pain and palpitation, was noted in atrial fibrillation with RVR, was given diltiazem with conversion of the rhythm to sinus rhythm. Currently, telemetry showing sinus rhythm. 2. We will start amiodarone p.o. for rhythm suppression. 3. Continue beta luanne therapy for rate control. 4. We will do an echo to evaluate heart function structure. 5. Check TSH. 6. On discussion with patient and daughter over the phone, the patient wishes to be on medical therapy. Risks and benefits discussed at length with patient and daughter. 7. We will continue to monitor the patient and adjust cardiac therapy as clinic course dictates. Thank you very much for this consult. Evaluated Agree with note Known to us Wants medical Rx Dictated by Thierno Baldwin NP Bassam Rivas MD DC/EFRAIN /[id number] JONAS
--- NOTE | 2019-12-25 19:00 | NUR ---
Resumed care of patient. Patient awake and resting in bed, respirations even and unlabored on room air, no s/s of distress at this time. Bed locked and in lowest position, side rails upx3, call light placed within reach. All safety measures in place.
--- NOTE | 2019-12-25 19:15 | NUR ---
Informed by lab of positive COVID results. Will transfer patient to room 284.
--- NOTE | 2019-12-25 19:17 | NUR ---
COMPLETED BEDSIDE SHIFT REPORT AND ROUNDING WITH ONCOMING NIGHT NURSE. PATIENT IN STABLE CONDITION, NO S/S OF DISTRESS NOTED. TELEMETRY APPLIED. NOTED RIGHT AKA AND LEFT BKA. IV SITE TO THE LEFT FOREARM ASYMPTOMATIC AND PATENT, TRANSPARENT DRESSING C/D/I. BED ALARM APPLIED. BED IN LOWEST POSITION AND LOCKED, SIDE RAILS X2. CALL LIGHT WITHIN REACH.
--- NOTE | 2019-12-25 19:59 | NUR ---
Patient transferred to room 284. Informed of positive COVID results. Vital signs stable on room air, no s/s of distress at this time. All safety measures in place.
--- NOTE | 2019-12-25 20:04 | NUR ---
Spoke to Dr. Bowman regarding positive COVID results. Received orders to consult Dr. Libby Dong and Dr. Castillo.
--- NOTE | 2019-12-25 20:08 | NUR ---
Called and spoke to Dr. Libby Dong regarding new consult. No new orders received at this time.
--- NOTE | 2019-12-25 20:40 | NUR ---
Per patient's request called daughter Giovanna to inform her of positive COVID results. Daughter stated that she would like to speak to doctors regarding plan of care. Note placed on chart.
--- OUTSIDE RECORDS SUMMARY | 2019-12-25 20:55 | XMS REPORT | Continuity of Care Document ---
Author Author [facility] Organization [facility] Address [address] [place] [address] Phone Unavailable Care Team Providers Care Monotyper Name Role Phone NO, PCP PCP Unavailable Kiko JIANG Attphys Unavailable GUY, SOUHEIL Attphys Unavailable Manny PERDUE Attphys Unavailable GUY, SOUHEIL Admphys Unavailable Payers Payer Name Policy Type Policy Number Effective Date Expiration Date S ghada [employer] [id number] 2011 00:00:00 [facility] Medicare A & B [id number] 2004 00:00:00 [facility] Problems Condition Name Condition Details Condition Category Status Onset Date Resolution Date Last Treatment Date Treating Clinician Comments Source Abdominal pain Abdominal pain Problem Active [facility] Colitis Colitis Problem Active [facility] Pneumobilia Pneumobilia Problem Active [facility] Allergies, Adverse Reactions, Alerts Allergy Name Allergy Type Status Severity Reaction(s) Onset Date Inacti ve Date Treating Clinician Comments Source penicillin G DA Active U 2018-09-16 00:00:00 [facility] Cyanocobalamin Allergy to Substance Active 2018-08-25 00:00 :00 [facility] Penicillin Allergy to Substance Active 2018-08-23 00:00:00 [facility] penicillin G DA Active U 2014-05-03 00:00:00 [facility] VITAMIN B-12 DA Active U 2003-10-19 00:00:00 [facility] Medications Ordered Medication Name Filled Medication Name Start Date Stop Da te Current Medication? Ordering Clinician Indication Dosage Frequency Signature (SIG) Comments Components Source Aspirin 81 Mg Tab.chew Aspirin 81 Mg Tab.chew Yes 81 Daily [facility] Carvedilol 12.5 Mg Tablet Carvedilol 12.5 Mg Tablet Yes 12.5 Twice A Day [facility] Clopidogrel Bisulfate (Plavix) 75 Mg Tablet Clopidogre l Bisulfate (Plavix) 75 Mg Tablet Yes 75 Daily [facility] Fenofibrate Nanocrystallized (Fenofibrate) 145 Mg Tabl et Fenofibrate Nanocrystallized (Fenofibrate) 145 Mg Tablet Yes 145 Daily [facility] Insulin Detemir (Levemir) 100 Unit/1 Ml Vial Insulin D etemir (Levemir) 100 Unit/1 Ml Vial Yes 25 Before Breakfast [facility] Insulin Detemir (Levemir) 100 Unit/1 Ml Vial Insulin D etemir (Levemir) 100 Unit/1 Ml Vial Yes 22 Bedtime [facility] Insulin Lispro (Humalog) 100 Unit/1 Ml Cartridge Insul in Lispro (Humalog) 100 Unit/1 Ml Cartridge Yes Before Meals [facility] Losartan Potassium 25 Mg Tablet Losartan Potassium 25 Mg Tablet Yes 50 Twice A Day [facility] Metoprolol Tartrate 25 Mg Tablet Metoprolol Tartrate 25 Mg Tablet Yes 25 Twice A Day [facility] Rosuvastatin Calcium (Crestor) 10 Mg Tab Rosuvastatin Calcium (Crestor) 10 Mg Tab Yes 20 Daily [facility] Ciprofloxacin Hcl (Cipro) 500 Mg Tablet, 500 Mg Oral C iprofloxacin Hcl (Cipro) 500 Mg Tablet, 500 Mg Oral 2019-02-09 00:00:00 No 500 Every 12 Hours [facility] Metronidazole (Flagyl) 250 Mg Tablet, 500 Mg Oral Metr onidazole (Flagyl) 250 Mg Tablet, 500 Mg Oral 2019-02-09 00:00:00 No 500 Thre e Times A Day [facility] Procedures Procedure Date / Time Performed Performing Clinician [facility] e X-ray of chest, single view 2019-02-09 00:00:00 KIMMY BAJWA [facility] EXCISION OF DESCENDING COLON, ENDO, DIAGN 2018-08-26 00:00:00 CUELLAR AIDA DOUG [facility] EXCISION OF SIGMOID COLON, ENDO, DIAGN 2018-08-26 00:00:00 DOUG GENAO [facility] EXCISION OF ILEUM, ENDO, DIAGN 2018-08-26 00:00:00 LEATHA GUY [facility] EXCISION OF SMALL INTESTINE, ENDO, DIAGN 2018-08-26 00:00:00 IRAIDA HUSAIN DOUG [facility] Computed tomography of abdomen and pelvis with contrast 2018 00:00:00 KIMMY CASTANEDA [facility] Encounters Start Date/Time End Date/Time Encounter Type Admission Type [facility] Care Department Encounter ID Source 2019-02-10 09:17:00 2019-02-12 16:00:00 Discharged Inpatient 1 DIMAS GUY [facility] [id number] [facility] 2018-08-23 18:43:00 2018-08-27 19:14:00 Discharged Inpatient 1 ADRIANA PERDUE [facility] [id number] [facility] Results Test Description Test Time Test Comments Results Result Comments Source CHEST SINGLE (PORTABLE) 2019-12-24 17:33:00 [place] [address] Patient Name: DELANEY SULLIVAN MR #: [id number] : 1935 Age/Sex: 84/F Req #: [id number] Adm Physician: Ordered by: BROOKLYN GARCIA DO Report #: [id number] Location: ER Room/Bed: Procedure: [id number] DX/CHEST SINGLE (PORTABLE) Exam Date: 12/24/19 Exam Time: 1715 REPORT STATUS: Signed EXAMINATION: CHEST SINGLE (PORTABLE) INDICATION: Chest pain COMPARISON: Multiple prior radiographs including most recent on 02/09/2019. FINDINGS: TUBES and LINES: None. LUNGS: Low lung volumes with bronchovascular crowding. There is hazy opacification of the right infrahilar region. Bibasilar atelectasis. PLEURA: No pleural effusion or pneumothorax. HEART AND MEDIASTINUM: The cardiomediastinal silhouette is unchanged. Atherosclerotic calcification of the thoracic aortic arch. BONES AND SOFT TISSUES: No acute osseous lesion. Soft tissues are unremarkable. UPPER ABDOMEN: No free air under the diaphragm. IMPRESSION: Hazy opacification at the right infrahilar region may represent atelectasis and/or pneumonia in the proper clinical setting. Signed by: Wojciech Guzman MD on 12/24/2019 5:39 PM Dictated By: WOJCIECH GUZMAN MD 38 Transcribed By: KIERSTEN on 12/24/191738 COPY TO: BROOKLYN GARCIA DO Bedside Glucose 2019-02-12 08:04:00 Test Item Bedside Glucose (test code = 36339-3) 206 70-120 H Meter ID: [id number] [facility] Childrenodium Level 2019-02-11 06:23:00* Test Item Value Reference Range Interpretation Comments Sodium Level (test code = 2951-2) 136 136-145 [facility] WorthPotassium Qvwho6480-24-45 06:23:00* Test Item Value Reference Range Interpretation Comments Potassium Level (test code = 2823-3) 4.1 3.5-5.1 [facility] WorthChloride Mgvsl8652-34-94 06:23:00* Test Item Value Reference Range Interpretation Comments Chloride Level (test code = 2075-0) 103 98-107 [facility] WorthCarbon Dioxide Rtsmi4281-27-39 06:23:00* Test Item Value Reference Range Interpretation Comments Carbon Dioxide Level (test code = 2028-9) 24 22-29 [facility] WorthAnion Max3203-68-43 06:23:00* Test Item Value Reference Range Interpretation Comments Anion Gap (test code = 18751-0) 13.1 8-16 [facility] WorthBlood Urea Zhevelrv0081-44-96 06:23:00* Test Item Value Reference Range Interpretation Comments Blood Urea Nitrogen (test code = 3094-0) 23 7-26 [facility] WorthCreatinine2019-09-18 06:23:00* Test Item Value Reference Range Interpretation Comments Creatinine (test code = 2160-0) 1.15 0.57-1.11 H [facility] WorthBUN/Creatinine Qdmwz3782-54-73 06:23:00* Test Item Value Reference Range Interpretation Comments BUN/Creatinine Ratio (test code = 3097-3) 20 6- [facility] WorthEstimat Glomerular Filtration Rate 2019-02-11 06:23:00* Test Item Value Reference Range Interpretation Comments Estimat Glomerular Filtration Rate (test code = 587557121) 45 >60 L Ranges were taken from the National Kidney Disease Education Program and the [facility] literature.Reference ranges:60 or greater: Hjibcl30-69 ( for 3 consecutive months): Chronic kidney disease 15 or less: Kidney failureTexas [facility] Hospital [facility] WorthGlucose Jcnwk4267-71-09 06:23:00* Test Item Value Reference Range Interpretation Comments Glucose Level (test code = OSV9899) 196 74-118 H [facility] WorthCalcium Wckmr0022-96-44 06:23:00* Test Item Value Reference Range Interpretation Comments Calcium Level (test code = 59386-0) 9.2 8.4-10.2 [facility] WorthWhite Blood Ezaxw2617-88-89 06:04:00* Test Item Value Reference Range Interpretation Comments White Blood Count (test code = 6690-2) 9.17 4.8-10.8 [facility] WorthRed Blood Sfqdh3000-92-72 06:04:00* Test Item Value Reference Range Interpretation Comments Red Blood Count (test code = 789-8) 3.84 3.6-5.1 [facility] WorthHemoglobin2019-09-18 06:04:00* Test Item Value Reference Range Interpretation Comments Hemoglobin (test code = 09336-2) 11.0 12.0-16.0 L [facility] WorthHematocrit2019-09-18 06:04:00* Test Item Value Reference Range Interpretation Comments Hematocrit (test code = 4544-3) 33.4 34.2-44.1 L [facility] WorthMean Corpuscular Jshyuv1238-30-10 06:04:00* Test Item Value Reference Range Interpretation Comments Mean Corpuscular Volume (test code = 787-2) 87.0 81-99 [facility] WorthMean Corpuscular Aemovsodsf9886-00-23 06:04:00* Test Item Value Reference Range Interpretation Comments Mean Corpuscular Hemoglobin (test code = 785-6) 28.6 28-32 [facility] WorthMean Corpuscular Hemoglobin Concent 2019-02-11 06:04:00* Test Item Value Reference Range Interpretation Comments Mean Corpuscular Hemoglobin Concent (test code = 786-4) 32.9 31-35 [facility] WorthRed Cell Distribution Ejhkb1708-62-73 06:04:00* Test Item Value Reference Range Interpretation Comments Red Cell Distribution Width (test code = 08000-1) 12.7 11.7 -14.4 [facility] WorthPlatelet Drfsl6700-84-82 06:04:00* Test Item Value Reference Range Interpretation Comments Platelet Count (test code = 777-3) 251 140-360 [facility] WorthNeutrophils (%) (Auto)2019-02-11 06:04:00 * Test Item Value Reference Range Interpretation Comments Neutrophils (%) (Auto) (test code = 40193-2) 51.0 38.7-80.0 [facility] WorthLymphocytes (%) (Auto)2019-02-11 06:04:00 * Test Item Value Reference Range Interpretation Comments Lymphocytes (%) (Auto) (test code = 736-9) 29.8 18.0-39.1 [facility] WorthMonocytes (%) (Auto)2019-02-11 06:04:00* Test Item Value Reference Range Interpretation Comments Monocytes (%) (Auto) (test code = 5905-5) 8.0 4.4-11.3 [facility] WorthEosinophils (%) (Auto)2019-02-11 06:04:00 * Test Item Value Reference Range Interpretation Comments Eosinophils (%) (Auto) (test code = 713-8) 9.9 0.0-6.0 H [facility] WorthBasophils (%) (Auto)2019-02-11 06:04:00* Test Item Value Reference Range Interpretation Comments Basophils (%) (Auto) (test code = 706-2) 0.3 0.0-1.0 [facility] WorthIM GRANULOCYTES %2019-02-11 06:04:00* Test Item Value Reference Range Interpretation Comments IM GRANULOCYTES % (test code = IM GRANULOCYTES %) 1.0 0.0- 1.0 [facility] WorthNeutrophils # (Auto)2019-02-11 06:04:00* Test Item Value Reference Range Interpretation Comments Neutrophils # (Auto) (test code = 751-8) 4.7 2.1-6.9 [facility] WorthLymphocytes # (Auto)2019-02-11 06:04:00* Test Item Value Reference Range Interpretation Comments Lymphocytes # (Auto) (test code = 03915-6) 2.7 1.0-3.2 [facility] WorthMonocytes # (Auto)2019-02-11 06:04:00* Test Item Value Reference Range Interpretation Comments Monocytes # (Auto) (test code = 742-7) 0.7 0.2-0.8 [facility] WorthEosinophils # (Auto)2019-02-11 06:04:00* Test Item Value Reference Range Interpretation Comments Eosinophils # (Auto) (test code = 711-2) 0.9 0.0-0.4 H [facility] WorthBasophils # (Auto)2019-02-11 06:04:00* Test Item Value Reference Range Interpretation Comments Basophils # (Auto) (test code = 704-7) 0.0 0.0-0.1 [facility] WorthAbsolute Immature Granulocyte (auto 2019-02-11 06:04:00* Test Item Value Reference Range Interpretation Comments Absolute Immature Granulocyte (auto (robinson t code = Absolute Immature Granulocyte (auto) 0.09 0-0.1 [facility] T[facility] DFYZ4956-13-07 19:32:00 [facility] [address] [place] [address] Patient Name : DELANEY SULLIVAN MR #: [id number] : 1935 Age/Sex: 83/F Adm Physician : DIMAS GUY MD Admit Date : 02/10/19 Location : [facility]/SURG3 Room/Bed : [facility] REPORT: Mirella cantor Stress Test DATE OF STUDY: 02/09/2019 19:23:00 Stress Test - Treadmi ll ONLY PROCEDURE MASTER: Rest/stress single isotope SPECT imaging with p harmacologic stress and gated SPECT imaging. INDICATION: Uzo-DP-pvdueb ion myocardial infarction. PROCEDURE IN DETAIL: Pharmacologic stress test ing was performed with regadenoson per protocol. The heart rate was 65 beats per minute at rest and increased to 80 beats per minute during the regadenoson infusion. The rest blood pressure was 193/66 mmHg and decreased to 131/59 mm Hg, which is a normal response. The resting electrocardiogram demonstrated no rmal sinus rhythm. There were no ST-segment changes suggestive of myocardial ischemia. Myocardial perfusion imaging was performed at rest following th e injection of 10 mCi of tetrofosmin. At peak pharmacologic effect, the patie nt was injected with 30 mCi of tetrofosmin. Gated post-stress tomographic analilia ging was performed. FINDINGS: The overall quality of study is fair. Lef t ventricular cavity is noted to be normal size on the rest and stress studies . SPECT images demonstrate homogeneous tracer distribution throughout the elham cardium. Gated SPECT imaging reveals normal myocardial thickening and wall mo tion. Left ventricular ejection fraction was calculated to be 60%. IMP RESSION: Myocardial perfusion imaging is normal. Overall left ventricular syst olic function was normal without regional wall motion abnormalities. Yonatan Caban MD ABS/EFRAIN /[id number] Signature Date Dictated By: YONATAN CABAN MD Transcribed By: KEML on 02/10/19 <Electronically signed by YONATAN CABAN MD><<Signature on File>>02/14/19 8462 COPY TO: Triglycerides Agegm6887-88-36 07:58:00* Test Item Value Reference Range Interpretation Comments Triglycerides Level (test code = 2571-8) 362 0-149 H [facility] WorthLDL Caiddnlglwy0392-06-18 07:58:00* Test Item Value Reference Range Interpretation Comments LDL Cholesterol (test code = 2089-1) 63 60-130 [facility] WorthCholesterol Kvjon8520-20-32 06:18:00* Test Item Value Reference Range Interpretation Comments Cholesterol Level (test code = 2093-3) 161 0-199 Less than 200 mg/dL Low Xhwc446 - 239 mg/dL Borderline Ldvr537 m g/dl and greater High Risk [facility] WorthHDL Suvqzizyhwo0688-02-05 06:18:00* Test Item Value Reference Range Interpretation Comments HDL Cholesterol (test code = 2085-9) 26 40-60 L [facility] WorthCholesterol/HDL Bepwj5108-24-20 06:18:00 * Test Item Value Reference Range Interpretation Comments Cholesterol/HDL Ratio (test code = 9830-1) 6.2 3.0-3.6 H [facility] WorthCreatine Kinase ZR0453-08-73 20:30:00* Test Item Value Reference Range Interpretation Comments Creatine Kinase MB (test code = 16446-6) 2.60 0-5.0 [facility] WorthTroponin A5213-22-25 20:30:00* Test Item Value Reference Range Interpretation Comments Troponin I (test code = IGY8295) 0.369 0-0.300 H [facility] WorthCreatine Oxprhd9340-48-20 19:59:00* Test Item Value Reference Range Interpretation Comments Creatine Kinase (test code = 2157-6) 58 29-168 [facility] WorthCHEST SINGLE (NOT PORTABLE)2019-02-09 05:01:00 [place] [address] Patient Name: DELANEY SULLIVAN MR #: [id number] : 1935 Age/Sex: 83/F Req #: [id number] Adm Physician: Ordered by: KIMMY BAJWA DO Report #: [id number] Location: ER Room/Bed: Procedure: [id number] DX/ABBEY ST SINGLE (NOT PORTABLE) Exam Date: 02/09/19 Exam Ti me: 0440 REPORT STATUS: Signed E XAMINATION: CHEST SINGLE (NOT PORTABLE) INDICATION: Chest pain COMPARISON: Abdominal CT 08/23/2018 FINDINGS: AP view TUBES a nd LINES: None. LUNGS: Lungs are well inflated. Lungs are clear. There i s no evidence of pneumonia or pulmonary edema. PLEURA: No pleural effusi on or pneumothorax. HEART AND MEDIASTINUM: The cardiomediastinal silhouett e is unremarkable. Thoracic aortic calcifications. BONES AND SOFT TISSUES : No acute osseous lesion. Soft tissues are unremarkable. UPPER ABDOMEN : No free air under the diaphragm. IMPRESSION: No acute thoracic radiographic abnormality. Signed by: James Ferraro DO on 02/09/2019 5:0 2 AM Dictated By: JAMES FERRARO DO 1 Transcribed By: KIERSTEN on 02/09/19501 COPY TO: KIMMY BAJWA DO Urine [id number] 04:59:00* Test Item Value Reference Range Interpretation Comments Urine WBC (test code = 5821-4) 6-10 0-5 H [facility] WorthUrine CRV2649-82-31 04:59:00* Test Item Value Reference Range Interpretation Comments Urine RBC (test code = 21203-5) 0-5 0-5 [facility] WorthUrine Rzuelqjd8206-47-73 04:59:00* Test Item Value Reference Range Interpretation Comments Urine Bacteria (test code = 84133-3) MANY NONE H [facility] WorthUrine Epithelial Kcmfv4841-58-72 04:59:00 * Test Item Value Reference Range Interpretation Comments Urine Epithelial Cells (test code = 52562-3) MODERATE NONE [facility] WorthB-Type Natriuretic Psnjgac9189-98-92 04:57:00* Test Item Value Reference Range Interpretation Comments B-Type Natriuretic Peptide (test code = 23180-8) 66.8 0-100 [facility] WorthUrine Mdcsa6667-57-41 04:50:00* Test Item Value Reference Range Interpretation Comments Urine Color (test code = 5778-6) YELLOW YELLOW [facility] WorthUrine Ggyfqkk5212-59-94 04:50:00* Test Item Value Reference Range Interpretation Comments Urine Clarity (test code = 88961-0) CLOUDY CLEAR H [facility] WorthUrine Specific Ikstlow9187-19-52 04:50:00 * Test Item Value Reference Range Interpretation Comments Urine Specific Lovejoy (test code = 5811-5) 1.015 1.010-1.02 5 [facility] WorthUrine nD7013-46-90 04:50:00* Test Item Value Reference Range Interpretation Comments Urine pH (test code = 89327-1) 5.5 5-7 [facility] WorthUrine Leukocyte Txacwvey1644-50-29 04:50:00* Test Item Value Reference Range Interpretation Comments Urine Leukocyte Esterase (test code = 23470-9) NEGATIVE NEGATIV E [facility] WorthUrine Wknfwid8193-18-61 04:50:00* Test Item Value Reference Range Interpretation Comments Urine Nitrite (test code = 38906-6) NEGATIVE NEGATIVE [facility] WorthUrine Kdyvext8418-71-79 04:50:00* Test Item Value Reference Range Interpretation Comments Urine Protein (test code = 77256-8) 2+ NEGATIVE H [facility] Glucose (UA)2019-02-09 04:50:00* Test Item Value Reference Range Interpretation Comments Urine Glucose (UA) (test code = 01749-2) 3+ NEGATIVE H [facility] WorthUrine Zxgcwvl7432-75-74 04:50:00* Test Item Value Reference Range Interpretation Comments Urine Ketones (test code = 47151-7) NEGATIVE NEGATIVE [facility] WorthUrine Wgcnbzwmklfz9728-05-12 04:50:00* Test Item Value Reference Range Interpretation Comments Urine Urobilinogen (test code = 36856-0) 0.2 0.2-1 [facility] WorthUrine Lzahlydhb9765-58-22 04:50:00* Test Item Value Reference Range Interpretation Comments Urine Bilirubin (test code = 1977-8) NEGATIVE NEGATIVE [facility] WorthUrine Wtqls1312-68-72 04:50:00* Test Item Value Reference Range Interpretation Comments Urine Blood (test code = 15368-3) NEGATIVE NEGATIVE [facility] WorthTotal Erleajcbr6453-55-41 04:50:00* Test Item Value Reference Range Interpretation Comments Total Bilirubin (test code = 1974-2) 0.3 0.2-1.2 [facility] WorthAspartate Amino Transf (AST/SGOT) 2019-02-09 04:50:00* Test Item Value Reference Range Interpretation Comments Aspartate Amino Transf (AST/SGOT) (test code = Aspartate Amino Transf (AST/SGOT)) 31 5-34 [facility] WorthAlanine Aminotransferase (ALT/SGPT) 2019-02-09 04:50:00* Test Item Value Reference Range Interpretation Comments Alanine Aminotransferase (ALT/SGPT) (test code = 1742-6) 23 0-55 [facility] WorthTotal Szowmxe7266-85-87 04:50:00* Test Item Value Reference Range Interpretation Comments Total Protein (test code = 2885-2) 7.1 6.5-8.1 [facility] WorthAlbumin2019-09-16 04:50:00* Test Item Value Reference Range Interpretation Comments Albumin (test code = 1751-7) 3.2 3.5-5.0 L [facility] WorthGlobulin2019-09-16 04:50:00* Test Item Value Reference Range Interpretation Comments Globulin (test code = 73266-6) 3.9 2.3-3.5 H [facility] WorthAlbumin/Globulin Fdtjs1347-88-91 04:50:00 * Test Item Value Reference Range Interpretation Comments Albumin/Globulin Ratio (test code = 1759-0) 0.8 0.8-2.0 [facility] WorthAlkaline Bahvztuqdha7529-52-61 04:50:00* Test Item Value Reference Range Interpretation Comments Alkaline Phosphatase (test code = 6768-6) 83 40-150 [facility] WorthURINALYSIS CZAXWLIA7617-48-12 18:55:00* Test Item Value Reference Range Interpretation Comments UA COLOR (test code = COLU) YELLOW YELLOW UA APPEARANCE (test code = APPU) TURBID CLEAR A UA GLUCOSE DIPSTICK (test code = DGLUU) 50 (Trace) mg/dL NEGATIVE A UA BILIRUBIN DIPSTICK (test code = BILU) NEGATIVE mg/dL NEGATIVE UA KETONE DIPSTICK (test code = KETU) NEGATIVE mg/dL NEGATIVE UA SPECIFIC GRAVITY (test code = SGU) 1.008 1.001-1.035 UA BLOOD DIPSTICK (test code = GILLIAN) 0.03 mg/dL (Trace) mg/dL NEGATI VE A UA PH DIPSTICK (test code = CHYNA) 5.5 5.0-8.0 UA PROTEIN DIPSTICK (test code = PROU) 100 (2+) mg/dL NEGATIVE A UA UROBILINIOGEN DIPSTICK (test code = URO) Normal mg/dL NEGATIVE UA NITRITE DIPSTICK (test code = KELLEY) NEGATIVE NEGATIVE UA LEUKOCYTE ESTERASE W REFLEX (test code = LEUUR) 500 Valeria/u L (2+) Valeria/uL NEGATIVE A UA WBC (test code = WBCU) 21-50 per HPF 0-5 A UA RBC (test code = RBCU) 3-5 #/HPF 0-5 UA WBC CLUMPS (test code = WBCUCL) 3-6 /HPF NONE A UA EPITHELIAL CELLS (test code = EPIU) MANY per HPF FEW UA BACTERIA (test code = BACU) MANY #/HPF NONE A UA MUCUS (test code = MUCU) MANY #/LPF FEW A Urine Source? Clean CatchURINALYSIS VISIPNNG8930-62-88 18:40:00* Test Item Value Reference Range Interpretation Comments UA COLOR (test code = COLU) YELLOW YELLOW UA APPEARANCE (test code = APPU) TURBID CLEAR A UA GLUCOSE DIPSTICK (test code = DGLUU) 50 (Trace) mg/dL NEGATIVE A UA BILIRUBIN DIPSTICK (test code = BILU) NEGATIVE mg/dL NEGATIVE UA KETONE DIPSTICK (test code = KETU) NEGATIVE mg/dL NEGATIVE UA SPECIFIC GRAVITY (test code = SGU) 1.008 1.001-1.035 UA BLOOD DIPSTICK (test code = GILLIAN) 0.03 mg/dL (Trace) mg/dL NEGATI VE A UA PH DIPSTICK (test code = CHYNA) 5.5 5.0-8.0 UA PROTEIN DIPSTICK (test code = PROU) 100 (2+) mg/dL NEGATIVE A UA UROBILINIOGEN DIPSTICK (test code = URO) Normal mg/dL NEGATIVE UA NITRITE DIPSTICK (test code = KELLEY) NEGATIVE NEGATIVE UA LEUKOCYTE ESTERASE W REFLEX (test code = LEUUR) 500 Valeria/u L (2+) Valeria/uL NEGATIVE A UA WBC (test code = WBCU) per HPF 0-5 UA RBC (test code = RBCU) per HPF 0-5 UA EPITHELIAL CELLS (test code = EPIU) per HPF Few UA BACTERIA (test code = BACU) per HPF NONE Urine Source? Clean Catch- XR CHEST 1 [id number] 17:21:00 FAX: Fabricio Swenson DO [place]: St: REG Name: DELANEY MARTÍNEZ [facility] : [birth year] Age/S: 83/F [address] [facility] Unit #: [id number] Loc: [place] [address] Phys: Fabricio Swenson DO Acct: [id number] Dis Date: Status: REG ER PHONE #: [phone] Exam Date: 09/16/2018 1655 FAX #: [phone] Reason: Altered Mental Status EXAMS: CPT CODE: [id number] XR CHEST 1 V 83628 REASON FOR EXAM: Altered M ental Status EXAM ORDER DATE: 09/16/2018 4:07 PM Marry salazar M.D.: Fabricio Swenson DO PROCEDURE: - XR CHEST 1 V COMPARISON: FINDINGS: Portable AP frontal view of the chest o btained at 4:48 PM shows clear lungs without evidence of consolidation. Th ere is no evidence of effusion. The heart size is within normal limits. Pulmonary vasculatures are unremarkable. IMPRESSION: No act james disease. at 1721 Reported and signed by: Kofi Erwin M.D. CC: Fabricio Swenson DO Technologist: MANSI WILLIS RT(R); FRANKY VELASQUEZ Trnmsrd Date/Time/By: 09/16/2018 (1725) : By: Sherice Orig Print D/T: S: 09/16/2018 (6784) PAGE 1 Signed Report - XR HIP W/PEL UNI 2+V [id number] 17:20:00 FAX: Fabricio Swenson DO [place]: B St: REG Name: DELANEY MARTÍNEZ [facility] : [birth year] Age[facility]S: 83[facility]F [address] [facility] Unit [facility]: [id number] Loc: [place] [address] Phys: Fabricio Swenson DO Acct: [id number] Dis Date: Status: REG ER PHONE #: [phone] Exam Date: 09/16/2018 1655 FAX #: [phone] Reason: pain EXAMS: CPT CODE: [id number] XR HIP W/PEL UNI 2+[place] [address] REASON FOR EXAM: pain EXAM ORDER DATE: 09/16/2018 4:40 PM Marry salazar M.D.: Fabricio Swenson DO PROCEDURE: - XR HIP W/PEL UNI 2+V RT FINDINGS: 3 views of the right hip with frontal view of the pelvis were obtained. The osseous structures are unremarkable in size and shape, aside from diffuse osteopenia. The joint spaces are maintained. No evidence of fracture. There is normal alignment of the right hip joint IMPRESSION: No acute osseous abnormality. Diffuse osteopenia. Distended urinary bladder. at 1720 Reported and signed by: Kofi Erwin M.D. CC: Fabricio Swenson DO Technologist: MANSI WILLIS RT(R); FRANKY VELASQUEZ [facility] Date/Time/By: 09/16/2018 (1720) : By: Sherice Orig Print D/T: S: 09/16/2018 (2709) PAGE 1 Signed Report BASIC METABOLIC [id number] 17:07:00* Test Item Value Reference Range Interpretation Comments SODIUM (test code = NA) 135 mmol/L 136-145 L POTASSIUM (test code = K) 4.5 mmol/L 3.5-5.1 N CHLORIDE (test code = CL) 100.0 mmol/L 98-107 N CARBON DIOXIDE (test code = CO2) 21.0 mmol/L 21-32 N ANION GAP (test code = GAP) 18.5 10-20 N GLUCOSE (test code = GLU) 345 mg/dL 74-106 H BLOOD UREA NITROGEN (test code = BUN) 27 mg/dL 7-18 H GLOMERULAR FILTRATION RATE (test code = GFR) 27 mL/min >=60 Estimated GFR by using Modified MDRD formula.Chronic kidney disease is defined as either kidney damageor GFR <60 mL/min/1.73 m2 for >3 months. CREATININE (test code = CREAT) 1.80 mg/dL 0.55-1.02 H Note change in reference range due to change in reagent. BUN/CREATININE RATIO (test code = BUN/CREA) 15.0 10-20 N CALCIUM (test code = CA) 9.4 mg/dL 8.5-10.1 N HEPATIC FUNCTION [id number] 17:07:00* Test Item Value Reference Range Interpretation Comments TOTAL PROTEIN (test code = PROT) 7.7 gram/dL 6.4-8.2 N ALBUMIN (test code = ALB) 3.1 g/dL 3.4-5.0 L GLOBULIN (test code = GLOB) 4.6 gram/dL 2.7-4.2 H ALBUMIN/GLOBULIN RATIO (test code = A/G) 0.7 0.75-1.50 L BILIRUBIN TOTAL (test code = BILT) 0.30 mg/dL 0.0-1.0 N BILIRUBIN DIRECT (test code = BILD) 0.10 mg/dL 0.0-0.20 N SGOT/AST (test code = AST) 32 IUnit/L 15-37 N SGPT/ALT (test code = ALT) 22 IUnit/L 12-78 N ALKALINE PHOSPHATASE TOTAL (test code = ALKP) 61 IUnit/L 45-117 N Note change in reference range due to change in reagent. [id number] 17:07:00* Test Item Value Reference Range Interpretation Comments TROPONIN-I (test code = TROPI) <0.015 ng/mL 0-0.045 N BASIC METABOLIC [id number] 17:00:00* Test Item Value Reference Range Interpretation Comments SODIUM (test code = NA) 135 mmol/L 136-145 L POTASSIUM (test code = K) 4.5 mmol/L 3.5-5.1 N CHLORIDE (test code = CL) 100.0 mmol/L 98-107 N CARBON DIOXIDE (test code = CO2) mmol/L 21-32 ANION GAP (test code = GAP) 10-20 GLUCOSE (test code = GLU) mg/dL 74-106 BLOOD UREA NITROGEN (test code = BUN) mg/dL 7-18 GLOMERULAR FILTRATION RATE (test code = GFR) mL/min >=60 CREATININE (test code = CREAT) mg/dL 0.55-1.02 BUN/CREATININE RATIO (test code = BUN/CREA) 10-20 CALCIUM (test code = CA) mg/dL 8.5-10.1 HEPATIC FUNCTION [id number] 17:00:00* Test Item Value Reference Range Interpretation Comments TOTAL PROTEIN (test code = PROT) gram/dL 6.4-8.2 ALBUMIN (test code = ALB) g/dL 3.4-5.0 GLOBULIN (test code = GLOB) gram/dL 2.7-4.2 ALBUMIN/GLOBULIN RATIO (test code = A/G) 0.75-1.50 BILIRUBIN TOTAL (test code = BILT) mg/dL 0.0-1.0 BILIRUBIN DIRECT (test code = BILD) mg/dL 0.0-0.20 SGOT/AST (test code = AST) IUnit/L 15-37 SGPT/ALT (test code = ALT) IUnit/L 12-78 ALKALINE PHOSPHATASE TOTAL (test code = ALKP) IUnit/L 45-117 [id number] 17:00:00* Test Item Value Reference Range Interpretation Comments TROPONIN-I (test code = TROPI) ng/mL 0-0.045 CBC W/AUTO [id number] 16:56:00* Test Item Value Reference Range Interpretation Comments WHITE BLOOD CELL (test code = WBC) 11.7 K/mm3 4.5-12.5 N RED BLOOD CELL (test code = RBC) 4.45 mill/mm3 3.7-5.2 N HEMOGLOBIN (test code = HGB) 12.6 gram/dL 11.5-15.5 N HEMATOCRIT (test code = HCT) 41.7 % 36.0-46.0 N MEAN CELL VOLUME (test code = MCV) 93.7 fL 80-98 N MEAN CELL HGB (test code = MCH) 28.3 picogram 27.0-33.0 N MEAN CELL HGB CONCETRATION (test code = MCHC) 30.2 gram/dL 33.0-36. 0 L RED CELL DISTRIBUTION WIDTH (test code = RDW) 12.4 % 11.6-16. 2 N RED CELL DISTRIBUTION WIDTH SD (test code = RDW-SD) 42.5 fL 37 .0-51.0 N PLATELET COUNT (test code = PLT) 369 K/mm3 150-450 N MEAN PLATELET VOLUME (test code = MPV) 9.0 fL 6.7-11.0 N NEUTROPHIL % (test code = NT%) 67.7 % 39.0-69.0 N IMMATURE GRANULOCYTE % (test code = IG%) 1.2 % 0.0-5.0 N LYMPHOCYTE % (test code = LY%) 18.8 % 25.0-55.0 L MONOCYTE % (test code = MO%) 6.5 % 0.0-10.0 N EOSINOPHIL % (test code = EO%) 5.4 % 0.0-5.0 H BASOPHIL % (test code = BA%) 0.4 % 0.0-1.0 N NUCLEATED RBC % (test code = NRBC%) 0.0 % 0-0 N NEUTROPHIL # (test code = NT#) 7.94 K/mm3 1.8-7.7 H IMMATURE GRANULOCYTE # (test code = IG#) 0.14 x10 3/uL 0-0.03 H LYMPHOCYTE # (test code = LY#) 2.21 K/mm3 1.0-5.0 N MONOCYTE # (test code = MO#) 0.76 K/mm3 0-0.8 N EOSINOPHIL # (test code = EO#) 0.63 K/mm3 0.0-0.5 H BASOPHIL # (test code = BA#) 0.05 K/mm3 0.0-0.2 N NUCLEATED RBC # (test code = NRBC#) 0.00 K/mm3 0.0-0.1 N - CT HEAD/BRAIN W/O [id number] 16:29:00 Name: DELANEY SULLIVAN [facility] : 1935 Age/S: 83 / F [address]an Godinez Unit #: [id number] Loc: [place] [address] Phys: Fabricio Swenson DO Acct: [id number] Dis Date: Status: REG ER PHONE #: [phone] Exam Date: 09/16/2018 1611 FAX #: [phone] Reason: Altered Mental Status EXAMS: CPT CODE: [id number] CT HEAD/BRAIN W/O CONT 55254 REASON FOR EXAM: Altered Mental Status EXAM ORDER DATE: 09/16/2018 4:07 PM Ordering Arnav: Fabricio Swenson DO PROCEDURE: - CT HEAD/BRAIN W/O CONT COMPARISON: FINDINGS: CT images of the brain were obtained without IV contrast. Dose modulation, iterative reconstruction, and/or weight based adjustment of the MA/KV was utilized to reduce the radiation dose to as low as reasonably achievable. Mild patchy low densities appearance of the paraventricular region noted consistent with nonspecific white matter disease. The azevedo-white matter delineation is unremarkable. The ventricles, cisterns, and sulci are minimally prominent. There is no evidence of hemorrhage, mass, mass effect. There is no evidence of acute or old infarct. The calvarium is intact. IMPRESSION: Nonspecific deep white matter disease. No acute findings at 1629 Reported and signed by: Kofi Erwin M.D. CC: Fabricio Swenson DO Technologist:Kate Ennis,RT(R),CT; WILLIAM Cantor CTDI: DLP: Trnscb Date/Time: 09/16/2018 (1629) Sherice Orig Print D/T: S: 09/16/2018 (1639) CTDI: DLP: PAGE 1 Signed Report Bedside [id number] 15:47:00* Test Item Value Reference Range Interpretation Comments Bedside Glucose (test code = 07940-6) 197 70-120 H Meter ID: [id number] Regional Medical Centerodium Level 2018-08-27 06:11:00* Test Item Value Reference Range Interpretation Comments Sodium Level (test code = 2951-2) 138 136-145 [facility] Worth[facility]assium [id number] 06:11:00* Test Item Value Reference Range Interpretation Comments Potassium Level (test code = 2823-3) 3.6 3.5-5.1 [facility] WorthChloride [id number] 06:11:00* Test Item Value Reference Range Interpretation Comments Chloride Level (test code = 2075-0) 112 98-107 H [facility] WorthCarbon Dioxide [id number] 06:11:00* Test Item Value Reference Range Interpretation Comments Carbon Dioxide Level (test code = 2028-9) 21 22-29 L [facility] WorthAnion [id number] 06:11:00* Test Item Value Reference Range Interpretation Comments Anion Gap (test code = 69819-3) 8.6 8-16 [facility] WorthBlood Urea [id number] 06:11:00* Test Item Value Reference Range Interpretation Comments Blood Urea Nitrogen (test code = 3094-0) 8 7-26 [facility] WorthCreatinine2019-04-03 06:11:00* Test Item Value Reference Range Interpretation Comments Creatinine (test code = 2160-0) 0.92 0.57-1.11 [facility] WorthBUN/Creatinine [id number] 06:11:00* Test Item Value Reference Range Interpretation Comments BUN/Creatinine Ratio (test code = 3097-3) 9 6-25 [facility] WorthEstimat Glomerular Filtration Rate 2018-08-27 06:11:00* Test Item Value Reference Range Interpretation Comments Estimat Glomerular Filtration Rate (test code = 228803530) 58 >60 L Ranges were taken from the National Kidney Disease Education Program and the [facility] literature.Reference ranges:60 or greater: Sxcnvu73-01 ( for 3 consecutive months): Chronic kidney disease 15 or less: Kidney failureTexas Health [facility] Hospital Fort WorthGlucose Nqhel8913-50-75 06:11:00* Test Item Value Reference Range Interpretation Comments Glucose Level (test code = FOL6187) 118 74-118 [facility] WorthCalcium Bwwpv0447-21-15 06:11:00* Test Item Value Reference Range Interpretation Comments Calcium Level (test code = 14689-3) 8.0 8.4-10.2 L [facility] WorthWhite Blood Ntyns6099-59-37 05:48:00* Test Item Value Reference Range Interpretation Comments White Blood Count (test code = 6690-2) 7.19 4.8-10.8 [facility] WorthRed Blood Nitqo9561-66-36 05:48:00* Test Item Value Reference Range Interpretation Comments Red Blood Count (test code = 789-8) 3.31 3.6-5.1 L [facility] WorthHemoglobin2019-04-03 05:48:00* Test Item Value Reference Range Interpretation Comments Hemoglobin (test code = 90456-0) 9.7 12.0-16.0 L [facility] WorthHematocrit2019-04-03 05:48:00* Test Item Value Reference Range Interpretation Comments Hematocrit (test code = 4544-3) 30.6 34.2-44.1 L [facility] WorthMean Corpuscular Fscxld5871-11-84 05:48:00* Test Item Value Reference Range Interpretation Comments Mean Corpuscular Volume (test code = 787-2) 92.4 81-99 [facility] WorthMean Corpuscular Dsisjxvtlv4382-27-86 05:48:00* Test Item Value Reference Range Interpretation Comments Mean Corpuscular Hemoglobin (test code = 785-6) 29.3 28-32 [facility] WorthMean Corpuscular Hemoglobin Concent 2018-08-27 05:48:00* Test Item Value Reference Range Interpretation Comments Mean Corpuscular Hemoglobin Concent (test code = 786-4) 31.7 31-35 [facility] WorthRed Cell Distribution Xghbs7109-99-92 05:48:00* Test Item Value Reference Range Interpretation Comments Red Cell Distribution Width (test code = 28604-5) 13.1 11.7 -14.4 [facility] WorthPlatelet Jkekf3885-20-62 05:48:00* Test Item Value Reference Range Interpretation Comments Platelet Count (test code = 777-3) 218 140-360 [facility] WorthNeutrophils (%) (Auto)2018-08-27 05:48:00 * Test Item Value Reference Range Interpretation Comments Neutrophils (%) (Auto) (test code = 94574-3) 51.2 38.7-80.0 [facility] WorthLymphocytes (%) (Auto)2018-08-27 05:48:00 * Test Item Value Reference Range Interpretation Comments Lymphocytes (%) (Auto) (test code = 736-9) 26.8 18.0-39.1 [facility] WorthMonocytes (%) (Auto)2018-08-27 05:48:00* Test Item Value Reference Range Interpretation Comments Monocytes (%) (Auto) (test code = 5905-5) 9.9 4.4-11.3 [facility] WorthEosinophils (%) (Auto)2018-08-27 05:48:00 * Test Item Value Reference Range Interpretation Comments Eosinophils (%) (Auto) (test code = 713-8) 11.0 0.0-6.0 H [facility] WorthBasophils (%) (Auto)2018-08-27 05:48:00* Test Item Value Reference Range Interpretation Comments Basophils (%) (Auto) (test code = 706-2) 0.4 0.0-1.0 [facility] WorthIM GRANULOCYTES %2018-08-27 05:48:00* Test Item Value Reference Range Interpretation Comments IM GRANULOCYTES % (test code = IM GRANULOCYTES %) 0.7 0.0- 1.0 [facility] WorthNeutrophils # (Auto)2018-08-27 05:48:00* Test Item Value Reference Range Interpretation Comments Neutrophils # (Auto) (test code = 751-8) 3.7 2.1-6.9 [facility] WorthLymphocytes # (Auto)2018-08-27 05:48:00* Test Item Value Reference Range Interpretation Comments Lymphocytes # (Auto) (test code = 49454-7) 1.9 1.0-3.2 [facility] WorthMonocytes # (Auto)2018-08-27 05:48:00* Test Item Value Reference Range Interpretation Comments Monocytes # (Auto) (test code = 742-7) 0.7 0.2-0.8 [facility] WorthEosinophils # (Auto)2018-08-27 05:48:00* Test Item Value Reference Range Interpretation Comments Eosinophils # (Auto) (test code = 711-2) 0.8 0.0-0.4 H [facility] WorthBasophils # (Auto)2018-08-27 05:48:00* Test Item Value Reference Range Interpretation Comments Basophils # (Auto) (test code = 704-7) 0.0 0.0-0.1 [facility] WorthAbsolute Immature Granulocyte (auto 2018-08-27 05:48:00* Test Item Value Reference Range Interpretation Comments Absolute Immature Granulocyte (auto (robinson t code = Absolute Immature Granulocyte (auto) 0.05 0-0.1 [facility] WorthLactic Acid Tuotk9022-64-59 05:29:00* Test Item Value Reference Range Interpretation Comments Lactic Acid Level (test code = Lactic Acid Level) 16.5 4.5- 19.8 [facility] WorthLactic Acid Enyga7565-52-32 05:29:00* Test Item Value Reference Range Interpretation Comments Lactic Acid Level (test code = Lactic Acid Level) 16.5 4.5- 19.8 [facility] WorthTotal Zuqmyoght8587-37-19 06:31:00* Test Item Value Reference Range Interpretation Comments Total Bilirubin (test code = 1975-2) 0.5 0.2-1.2 [facility] WorthAspartate Amino Transf (AST/SGOT) 2018-08-24 06:31:00* Test Item Value Reference Range Interpretation Comments Aspartate Amino Transf (AST/SGOT) (test code = Aspartate Amino Transf (AST/SGOT)) 27 5-34 [facility] WorthAlanine Aminotransferase (ALT/SGPT) 2018-08-24 06:31:00* Test Item Value Reference Range Interpretation Comments Alanine Aminotransferase (ALT/SGPT) (test code = 1742-6) 20 0-55 [facility] WorthTotal Eodwjzr7322-91-72 06:31:00* Test Item Value Reference Range Interpretation Comments Total Protein (test code = 2885-2) 6.5 6.5-8.1 [facility] WorthAlbumin2019-03-31 06:31:00* Test Item Value Reference Range Interpretation Comments Albumin (test code = 1751-7) 2.9 3.5-5.0 L [facility] WorthGlobulin2019-03-31 06:31:00* Test Item Value Reference Range Interpretation Comments Globulin (test code = 09750-1) 3.6 2.3-3.5 H [facility] WorthAlbumin/Globulin Mdyvk3151-92-72 06:31:00 * Test Item Value Reference Range Interpretation Comments Albumin/Globulin Ratio (test code = 1759-0) 0.8 0.8-2.0 [facility] WorthAlkaline Uqgdvhdwgjg8566-20-31 06:31:00* Test Item Value Reference Range Interpretation Comments Alkaline Phosphatase (test code = 6768-6) 46 40-150 [facility] WorthUrine [id number] 18:39:00* Test Item Value Reference Range Interpretation Comments Urine WBC (test code = 5821-4) 11-20 0-5 H [facility] WorthUrine [id number] 18:39:00* Test Item Value Reference Range Interpretation Comments Urine RBC (test code = 13097-4) 0-5 0-5 [facility] WorthUrine Rcqtxkej3988-78-25 18:39:00* Test Item Value Reference Range Interpretation Comments Urine Bacteria (test code = 70907-8) MANY NONE H [facility] WorthUrine Epithelial Kaiji9281-69-69 18:39:00 * Test Item Value Reference Range Interpretation Comments Urine Epithelial Cells (test code = 90709-5) MODERATE NONE [facility] WorthUrine Transitional Epithelial Cells 2018-08-23 18:39:00* Test Item Value Reference Range Interpretation Comments Urine Transitional Epithelial Cells (test code = 8249-5) MODERATE NONE H [facility] WorthUrine Transitional Epithelial Cells 2018-08-23 18:39:00* Test Item Value Reference Range Interpretation Comments Urine Transitional Epithelial Cells (test code = 8249-5) MODERATE NONE H [facility] WorthUrine Whbvq3008-52-36 18:10:00* Test Item Value Reference Range Interpretation Comments Urine Color (test code = 5778-6) YELLOW YELLOW [facility] WorthUrine Yvzsnmf5266-42-23 18:10:00* Test Item Value Reference Range Interpretation Comments Urine Clarity (test code = 09379-6) SL CLOUDY CLEAR [facility] Specific Fkrbcju7295-50-32 18:10:00 * Test Item Value Reference Range Interpretation Comments Urine Specific Lovejoy (test code = 5811-5) 1.030 1.010-1.02 5 H [facility] WorthUrine [id number] 18:10:00* Test Item Value Reference Range Interpretation Comments Urine pH (test code = 02252-4) 5 5-7 [facility] WorthUrine Leukocyte Boxnqrwp9092-05-54 18:10:00* Test Item Value Reference Range Interpretation Comments Urine Leukocyte Esterase (test code = 5799-2) TRACE NEGATIVE H [facility] WorthUrine Ceqabpa2728-92-75 18:10:00* Test Item Value Reference Range Interpretation Comments Urine Nitrite (test code = 31392-8) NEGATIVE NEGATIVE [facility] WorthUrine Tvqooen3155-36-78 18:10:00* Test Item Value Reference Range Interpretation Comments Urine Protein (test code = 5804-0) 3+ NEGATIVE H [facility] WorthUrine Glucose (UA)2018-08-23 18:10:00* Test Item Value Reference Range Interpretation Comments Urine Glucose (UA) (test code = 2349-9) NEGATIVE NEGATIVE [facility] WorthUrine Kfiuecc7880-05-60 18:10:00* Test Item Value Reference Range Interpretation Comments Urine Ketones (test code = 06975-4) NEGATIVE NEGATIVE [facility] WorthUrine Fvewnyokwpxl0110-37-97 18:10:00* Test Item Value Reference Range Interpretation Comments Urine Urobilinogen (test code = 59263-6) 1 0.2-1 [facility] WorthUrine Fchcnmtgq4188-75-60 18:10:00* Test Item Value Reference Range Interpretation Comments Urine Bilirubin (test code = 1978-6) NEGATIVE NEGATIVE [facility] WorthUrine Fevhy0297-83-50 18:10:00* Test Item Value Reference Range Interpretation Comments Urine Blood (test code = 13069-3) NEGATIVE NEGATIVE [facility] WorthInfluenza Virus Types A,B Antigen 2018-08-23 17:58:00* Test Item Value Reference Range Interpretation Comments Influenza Virus Types A,B Antigen (test code = 86463-4) NEGATIVE NEGATIVE [facility] WorthInfluenza Virus Types A,B Antigen 2018-08-23 17:58:00* Test Item Value Reference Range Interpretation Comments Influenza Virus Types A,B Antigen (test code = 95432-5) NEGATIVE NEGATIVE [facility] WorthCT ABDOMEN/PELVIS [id number] 17:33:00 [place] [address] Patient Name: DELANEY SULLIVAN MR #: [id number] : 1935 Age/Sex: 83/F Req #: [id number] Adm Physician: Ordered by: KIMMY CASTANEDA PARI [employer] Report #: [id number] Location: ER Room/Bed: Procedure: [id number] CT/ CT ABDOMEN/PELVIS W Exam Date: 03/30/19 Exam Time: 1 630 REPORT STATUS: Signed EXAM: CT Abdomen and Pelvis WITH contrast INDICATION: abd pain [id number] 1630 COMPARISON: None. TECHNIQUE: Abdomen and pelvis were scanned util izing a multidetector helical scanner from the lung base to the pubic symphysi s after administration of IV contrast. Coronal and sagittal reformations were obtained. Dose modulation, iterative reconstruction, and/or weight based adjus tment of the mA/kV was utilized to reduce the radiation dose to as low as reas onably achievable. Routine protocol was performed. Scan was performed when dur ing portal venous phase. IV CONTRAST: 100 mL of Isovue-370 O RAL CONTRAST: None. COMPLICATIONS: None RADIATION DOSE: Total DLP: 405.18 mGy*cm Estimated effective dose: (DLP x 0.015 x si ze factor) mSv CTDIvol has been reviewed. It is below the limits set by teodoro briggs Radiation Protocol Committee (RPC). FINDINGS: LINES and TUBES: No ne. LOWER THORAX: Unremarkable HEPATOBILIARY: No focal hepatic l esions. Moderate pneumobilia and left hepatic lobe biliary dilatation. The com mon bile duct is also distended with air. GALLBLADDER: Surgically absent. SPLEEN: No splenomegaly. PANCREAS: Atrophic. No focal masses or duct al dilatation. ADRENALS: No adrenal nodules KIDNEYS/URETERS: Kid neys enhance symmetrically. No hydronephrosis. No cystic or solid mass lesion s. No stones. Multifocal bilateral areas of cortical thinning/scarring. Bilat eral renal calcifications are probably vascular. GI TRACT: No abnormal dist ention or evidence of bowel obstruction. Mild cecal and proximal ascending col on wall thickening. Scattered colonic diverticula without evidence of divertic ulitis. Appendix is normal. PELVIC ORGANS/BLADDER: Multiple calcified uter ine fibroids. Bladder is unremarkable. LYMPH NODES: No lymphadenopathy. VESSELS: Severe aortoiliac atherosclerotic disease. PERITONEUM / RETROP ERITONEUM: No free air or fluid. BONES: Generalized demineralization limits evaluation. Mottled appearance of the pelvic bones mild lumbar spine scoliosis with multilevel advanced degenerative changes. SOFT TISSUES: Small fat- containing umbilical hernia. IMPRESSION: 1. Mild cecal and proximal ascending colon wall thickening, could be due to underdistention or m ild colitis in the appropriate clinical context. Otherwise, no acute inflammat ory process in the abdomen/pelvis. 2. Status post cholecystectomy. There is m oderate pneumobilia and left hepatic lobe biliary dilatation. The common bile duct is also distended with air. 3. Severe arteriolosclerosis. Signed by : Dr. Quique Hinds MD on 08/23/2018 5:45 PM Dictated By: QUIQUE Lorenz 44 Transcribed By: KIERSTEN on 08/23/181744 COPY TO: KIMMY CASTANEDA PARI [employer] Prothrombin [id number] 15:27:00* Test Item Value Reference Range Interpretation Comments Prothrombin Time (test code = 5902-2) 13.1 11.9-14.5 [facility] International Ratio 2018-08-23 15:27:00* Test Item Value Reference Range Interpretation Comments Prothromb Time International Ratio (test code = 6301-6) 0.94 Oral Anticoagulant Therapy INR Values:1. Low Intensity Therapy 1.5 - 2.02 . Moderate Intensity Therapy 2.0 - 3.03. High Intensity Therapy(1) 2.5 - 3. 54. High Intensity Therapy(2) 3.0 - 4.05. Panic Value INR > 5.0 [facility] Partial Thromboplast Time 2018-08-23 15:27:00* Test Item Value Reference Range Interpretation Comments Activated Partial Thromboplast Time (test code = 81989-5) 27.1 23.8-35.5 [facility] [id number] 15:27:00* Test Item Value Reference Range Interpretation Comments Prothrombin Time (test code = 5902-2) 13.1 11.9-14.5 [facility] International Ratio 2018-08-23 15:27:00* Test Item Value Reference Range Interpretation Comments Prothromb Time International Ratio (test code = 6301-6) 0.94 Oral Anticoagulant Therapy INR Values:1. Low Intensity Therapy 1.5 - 2.02 . Moderate Intensity Therapy 2.0 - 3.03. High Intensity Therapy(1) 2.5 - 3. 54. High Intensity Therapy(2) 3.0 - 4.05. Panic Value INR > 5.0 [facility] Partial Thromboplast Time 2018-08-23 15:27:00* Test Item Value Reference Range Interpretation Comments Activated Partial Thromboplast Time (test code = 88914-1) 27.1 23.8-35.[address] [facility]2018-08-23 15:27:00 [facility] [address] [address] Patient Name: DELANEY SULLIVAN MR #: [id number] : 1935 Age/Sex: 83/F Req #: [id number] Adm Physician: Ordered by: KIMMY CASTANEDA [employer]I [employer] Report #: [id number] Location: ER Room/Bed: Procedure: [id number] DX/ CHEST SINGLE (PORTABLE) Exam Date: 08/23/18 Exam Alonso e: 1515 REPORT STATUS: Signed EX AMINATION: CHEST SINGLE (PORTABLE) INDICATION: Abdominal pain. ER MD ORDER [id number] 1515 Y COMPARISON: None FINDINGS: AP view TUBES and LINES: None. LUNGS: Low lung volumes. There is no evidence of pneumonia or pulmonary edema. PLEURA: No pleural effusion or pneumothorax. HEART AND MEDIASTINUM: The cardiomediastinal silhouette is unremarkable. Aorta is calcified and mildly tortuous. BONES AND SOFT TI SSUES: No acute osseous lesion. Soft tissues are unremarkable. UPPER AB DOMEN: No free air under the diaphragm. IMPRESSION: No acute thoraci c abnormality. Signed by: Dr. Quique Hinds MD on 08/23/2018 3:28 PM Dictated By: QUIQUE HINDS MD 1528 Transcribed By: KIERSTEN on 08/23/18 1528 COPY TO: KIMMY CASTANEDA [employer] Creatine Kinase [id number] 14:54:00* Test Item Value Reference Range Interpretation Comments Creatine Kinase MB (test code = 77968-1) 0.80 0-5.0 [facility] Worth[facility] [id number] 14:54:00* Test Item Value Reference Range Interpretation Comments Troponin I (test code = OII9039) 0.014 0-0.300 [facility] [id number] 14:51:00* Test Item Value Reference Range Interpretation Comments Magnesium Level (test code = 82620-5) 1.6 1.3-2.1 [facility] Natriuretic [id number] 14:51:00* Test Item Value Reference Range Interpretation Comments B-Type Natriuretic Peptide (test code = 80388-3) 42.9 0-100 [facility] Worth[facility] [id number] 14:51:00* Test Item Value Reference Range Interpretation Comments Creatine Kinase (test code = 2157-6) 35 29-168 [facility] Worth[facility]2019-03-30 14:51:00* Test Item Value Reference Range Interpretation Comments Lipase (test code = 3040-3) [facility] [id number] 14:51:00* Test Item Value Reference Range Interpretation Comments Magnesium Level (test code = 08801-5) 1.6 1.3-2.1 [facility]2019-03-30 14:51:00* Test Item Value Reference Range Interpretation Comments Lipase (test code = 3040-3) [facility]
[2019-12-26] VITALS (7 sets, daily range): BP systolic 108–163; BP diastolic 44–65
[2019-12-26 05:50] LABS: BASOPHILS % 0.3 % (0.0-1.0); EOSINOPHILS # (AUTO) 1.6 (0.0-0.4); EOSINOPHILS % 16.7 % (0.0-6.0); HEMATOCRIT 31.1 % (34.2-44.1); HEMOGLOBIN 10.3 g/dL (12.0-16.0); LYMPHOCYTES # (AUTO) 2.2 (1.0-3.2); LYMPHOCYTES % 23.3 % (18.0-39.1); MEAN CORPUSCULAR HEMOGLOBIN 27.5 pg (28-32); MEAN CORPUSCULAR HGB CONC 33.1 g/dL (31-35); MEAN CORPUSCULAR VOLUME 82.9 fL (81-99); MONOCYTES # (AUTO) 0.9 (0.2-0.8); NEUTROPHILS # (AUTO) 4.4 (2.1-6.9); NEUTROPHILS % 47.5 % (38.7-80.0); PLATELET COUNT 247 x10e3/uL (140-360); RED BLOOD COUNT 3.75 x10e6/uL (3.6-5.1); RED CELL DISTRIBUTION WIDTH 13.4 % (11.7-14.4)
--- NOTE | 2019-12-26 06:20 | NUR ---
Patient resting quietly in bed, respirations even and unlabored on room air, no s/s of distress at this time. All safety measures in place.
[2019-12-26 06:32] LABS: ANION GAP 10.8 mmol/L (8-16); CALCIUM 8.5 mg/dL (8.4-10.2); CREATININE, SERUM 1.25 mg/dL (0.57-1.11); POTASSIUM 4.8 mmol/L (3.5-5.1)
--- NOTE | 2019-12-26 06:37 | NUR ---
Called routine consult to Dr. Castillo's office.
--- NOTE | 2019-12-26 07:00 | NUR ---
received report, pt is sleeping in bed, no s/s of distress. call light within reach
[2019-12-26] MEDS: INSULIN LISPRO 100 UNIT/1 ML 3ML VIAL SQ SCH ×3 (08:00→17:20)
[2019-12-26] MEDS: INSULIN GLARGINE 100 UNITS/ML VIAL SQ SCH ×2 (08:00→19:46)
[2019-12-26] MEDS: AMIODARONE HCL 200 MG TAB PO SCH ×2 (08:11→17:05)
[2019-12-26] MEDS: ASPIRIN 81 MG CHEW TAB PO SCH (08:11)
[2019-12-26] MEDS: SIMVASTATIN 20 MG TAB PO SCH (08:12)
[2019-12-26] MEDS: CLOPIDOGREL BISULFATE 75 MG TAB PO SCH (08:12)
[2019-12-26] MEDS: CARVEDILOL 12.5 MG TAB PO SCH ×2 (08:12→17:05)
[2019-12-26] MEDS: LOSARTAN POTASSIUM 25 MG TAB PO SCH ×2 (08:12→17:05)
[2019-12-26] MEDS: METOPROLOL TARTRATE 25 MG TAB PO SCH (08:12)
[2019-12-26] MEDS: FENOFIBRATE 145 MG TAB PO SCH (08:12)
[2019-12-26] MEDS ORDERED: AZITHROMYCIN 500MG/NS 250 ML 250 ML IV SCH (12:15)
--- NOTE | 2019-12-26 12:43 | Progress Note ---
DATE: 12/26/2019 CHIEF COMPLAINT/HISTORY OF PRESENT ILLNESS: This is an 84-year-old woman, whose primary treating diagnosis is pul-RT-miedkjvf myocardial infarction and paroxysmal atrial fibrillation. She has a known history of coronary artery disease. The patient was also found to be COVID-19 positive during this hospitalization. The patient denies any shortness of breath or cough. Chest film performed on admission two days ago revealed mild cardiomegaly with bibasilar atelectasis and hazy opacification of the right infrahilar region. Today, the patient was found to have a sodium 121 with BUN and creatinine 19 and 1.25 respectively. Lipid profile performed yesterday revealed a triglyceride level of 270 mg/dL and LDL cholesterol 92 mg/dL. TSH was normal at 2.60. REVIEW OF SYSTEMS: As per HPI. PHYSICAL EXAMINATION: GENERAL: She is she is awake. She is alert. She is hard of hearing. She is speaks only Azeri. VITAL SIGNS: Blood pressure is 108/48, pulse 54, respiratory rate 18, oxygen is 94% on room air, temperature 98.3. INTEGUMENT: Skin is warm and dry. No pallor, jaundice, or diaphoresis. HEENT: Anicteric sclerae. Moist mucous membranes. The patient has dentures. NECK: Supple. No evidence of jugular venous distention. CARDIOVASCULAR: Distant heart sounds. Bradycardic rate with a regular rhythm. The patient has S3 gallop. LUNGS: Diminished breath sounds at bases. ABDOMEN: Obese, benign. EXTREMITIES: The patient has bilateral below-knee amputations. NEUROLOGIC: No gross deficits appreciated. DIAGNOSES: 1. Coronavirus disease-19 infection. 2. Right-sided pneumonia, likely. 3. Paroxysmal atrial ablation. 4. Coronary artery disease. 5. Peripheral artery disease. 6. Lsr-YH-iophnxft myocardial infarction. 7. Hyponatremia. 8. Stage 3 chronic kidney disease. PLAN: 1. We will follow troponin I level. 2. Continue medical management in regard to the patient's ntf-VJ-zhqyrwuz myocardial infarction. 3. Consult Pulmonary and Infectious Disease specialists because of the patient's positive COVID-19 status. 4. Start intravenous azithromycin for the patient's likely right-sided pneumonia. 5. Would gently correct the patient's hyponatremia. 6. Consult Nephrology for the patient's hyponatremia. 7. If the patient's hyponatremia begins to normalize, she may be discharged home with oral antibiotics. 8. Appreciate Cardiology's input. MD OMI Veliz/EFRAIN /[id number] MTDGerda
[2019-12-26] MEDS ORDERED: SODIUM CHLORIDE 0.9% 1000ML 1,000 ML IV ONE (14:15)
[2019-12-26] MEDS ORDERED: FUROSEMIDE INJ 10 MG/ML 4 ML VIAL IV ONE (15:00)
--- NOTE | 2019-12-26 15:43 | Diagnostic Imaging Report ---
EXAMINATION: CHEST SINGLE (PORTABLE) INDICATION: Right-sided pneumonia. COMPARISON: Multiple prior chest x-rays including most recent on 12/24/2019 FINDINGS: TUBES and LINES: None. LUNGS: Normal lung volumes. There is slight interval improvement of right infrahilar hazy opacification. PLEURA: No pleural effusion or pneumothorax. HEART AND MEDIASTINUM: The cardiomediastinal silhouette is within normal limits. Atherosclerotic calcification of the thoracic aortic arch. BONES AND SOFT TISSUES: No acute osseous lesion. Soft tissues are unremarkable. UPPER ABDOMEN: No free air under the diaphragm. IMPRESSION: Interval improvement of right infrahilar hazy opacification which may reflect improved lung volumes or resolving pneumonia. Signed by: Juliano Payton MD on 12/26/2019 3:40 PM
[2019-12-26 16:02] LABS: THYROID STIMULATING HORMONE 2.592 uIU/mL (0.350-4.940)
[2019-12-26] MEDS: SODIUM CHLORIDE 1 GM TAB PO SCH ×2 (17:05→20:17)
--- NOTE | 2019-12-26 18:31 | NUR ---
PAST MEDICAL HISTORY: CAD, peripheral vascular disease, carotid artery disease, hypertension, diabetes, and hyperlipidemia. PAST SURGICAL HISTORY: Cholecystectomy, bilateral BKAs. SOCIAL HISTORY: She is a . Lives with her daughter. Former smoker. No alcohol use. FAMILY HISTORY: Denies any history of heart disease, stroke, or cancer. ALLERGIES: PENICILLIN. HOME MEDICATIONS: Aspirin 81 mg daily, carvedilol 12.5 mg b.i.d., Plavix 75 mg daily, fenofibrate 145 mg daily, Levemir 20 units at bedtime, lispro 12 to 14 units with meals, losartan 50 mg b.i.d., and Crestor 20 mg daily. REVIEW OF SYSTEMS: GENERAL: Denies any weight change, fever, chills, or night sweats, night sweats. SKIN: Denies any sores or rashes. HEENT: Denies any nausea, vomiting, vision changes, blurred vision, double vision, epistaxis, sore throat, or swollen neck. CARDIAC: Chest pain as above. Positive palpitations. Denies any orthopnea, PND, or lower extremity edema. RESPIRATORY: Denies any shortness of breath, coughing, wheezing, or hemoptysis. GI: Reports poor appetite. Denies any melena, tarry bloody stools, dysuria, or hematuria. VASCULAR: Positive for bilateral BKAs. MUSCULOSKELETAL: Generalized joint pains, back pains. NEUROLOGIC: Denies any tremors, paralysis, fainting, or blackouts. ENDOCRINE: Denies heat or cold intolerance, polyuria, polydipsia, or polyphagia. [id number]
--- NOTE | 2019-12-26 19:00 | NUR ---
Resumed care of patient. Patient resting quietly in bed, respirations even and unlabored on room air. HR 40-50s per telemetry. Patient arousable, alert and oriented, no s/s of distress at this time. Bed locked and in lowest position, side rails upx3, alarm on, call light placed within reach. All safety measures in place.
--- NOTE | 2019-12-26 19:35 | Consultation ---
DATE OF CONSULTATION: Initial Nephrology Consultation Report REASON FOR CONSULTATION: Hyponatremia. HISTORY OF PRESENT ILLNESS: Ms. Hernandez is an 84-year-old female, who presents to the hospital. She basically had tachycardia and atrial fibrillation with rapid ventricular response. She has multiple medical problems, extensive coronary history. I am being asked to see her because her serum sodium was 121. When she was admitted, her serum sodium was 124. Her medicines in the hospital have been reviewed and the patient also has been recently diagnosed as positive coronavirus. PAST MEDICAL HISTORY: Coronary artery disease, peripheral vascular disease, hyperlipidemia, diabetes, hypertension. PAST SURGICAL HISTORY: She has had bilateral zhymq-awa-pavx amputations, cholecystectomy. MEDICINES: As per MAR. REVIEW OF SYSTEMS: As per HPI. PHYSICAL EXAMINATION: VITAL SIGNS: Stable. GENERAL: The patient is calm, somewhat lethargic in appearance. Somewhat obese. HEENT: No increased JVD. CARDIOVASCULAR: Regular rate and rhythm. LUNGS: Decreased breath sounds at the bases bilaterally. ABDOMEN: Decreased bowel sounds. EXTREMITIES: The patient has bilateral BKAs. LABORATORY RESULTS: Sodium 121, potassium 4.8, chloride 92, bicarb 23. BUN and creatinine 19 and 1.2 respectively. Urinalysis essentially unremarkable. IMPRESSION/PLAN: 1. Coronavirus disease positive. 2. Coronary artery disease. 3. Atrial fibrillation. 4. Hyponatremia. 5. Renal insufficiency. PLAN: The patient does have hyponatremia. We will check a serum and urine osmolality, check a TSH also. I will give her normal saline actually for about 1 L and then, I also give her some Lasix. The Lasix will promote hypotonic diuresis and she probably is a little bit decreased in volume, so that is why I will the normal saline. After this saline is given, if her sodium does not correct, she will need to be on a water restriction. I will follow the patient with you. Thank you, Dr. Grullon for this consultation. Ather MD JIA Ramirez/EFRAIN /[id number]
--- NOTE | 2019-12-26 19:51 | Consultation ---
DATE OF CONSULTATION: HISTORY OF PRESENT ILLNESS: Ms. Hernandze is seen and examined. She is a very pleasant 84-year-old female, who comes with chest pain. Her COVID-19 came back positive. The patient has history of severe coronary artery disease, peripheral vascular disease, bilateral BKA, carotid artery disease, hypertension, hyperlipidemia, diabetes mellitus, comes into the emergency room with chest pain. She had atrial fibrillation with RVR. Cardiology was consulted. Her COVID-19 came back positive. The patient denies any fever and chills. Denies any nausea, vomiting, or diarrhea or any cough. PAST MEDICAL HISTORY: As above. PAST SURGICAL HISTORY: As above. SOCIAL HISTORY: There is no smoking, drug abuse, or alcohol abuse. REVIEW OF SYSTEMS: At the present time: HEENT: Negative. PULMONARY: Negative. CARDIAC: Negative. : Negative. Except for the chest pain, which is mentioned above, she is feeling better. She denies any at the present time. PHYSICAL EXAMINATION: GENERAL: She is currently alert, oriented, does not seem to be in acute distress. VITAL SIGNS: Stable. Afebrile. HEENT: She is not icteric. NECK: Supple. CHEST: Clear. HEART: S1, S2. ABDOMEN: Soft. Bowel sounds present. No tenderness. EXTREMITIES: No edema. SKIN: No rash. IMPRESSION: Positive coronavirus disease-19, clinically asymptomatic. It could be old infection versus treated with asymptomatic. There is no treatment. We will put her on isolation for 10 days. No need for antibiotic. Chest pain, continue with treatment as ordered. Cardiology evaluation. If the patient is deemed clear to be discharged, I have no problem of her being discharged or no treatment. MD CARLYLE Lopez/EFRAIN /[id number]
--- NOTE | 2019-12-26 20:15 | NUR ---
Fingerstick glucose level 69. Patient awake and resting in bed, no s/s of distress at this time. 8oz orange juice provided. PM dose of Lantus held.
[2019-12-27] VITALS: BP 151/55
--- NOTE | 2019-12-27 03:03 | NUR ---
Urine specimen obtained as ordered and sent to lab.
[2019-12-27 04:11] VITALS: BP 156/84
[2019-12-27 05:59] LABS: BASOPHILS % 0.2 % (0.0-1.0); EOSINOPHILS # (AUTO) 0.4 (0.0-0.4); EOSINOPHILS % 6.4 % (0.0-6.0); HEMATOCRIT 31.5 % (34.2-44.1); HEMOGLOBIN 10.7 g/dL (12.0-16.0); LYMPHOCYTES # (AUTO) 1.6 (1.0-3.2); LYMPHOCYTES % 24.9 % (18.0-39.1); MEAN CORPUSCULAR HEMOGLOBIN 29.1 pg (28-32); MEAN CORPUSCULAR VOLUME 85.6 fL (81-99); MONOCYTES # (AUTO) 0.6 (0.2-0.8); NEUTROPHILS # (AUTO) 3.8 (2.1-6.9); NEUTROPHILS % 56.9 % (38.7-80.0); PLATELET COUNT 200 x10e3/uL (140-360); RED BLOOD COUNT 3.68 x10e6/uL (3.6-5.1); RED CELL DISTRIBUTION WIDTH 13.7 % (11.7-14.4)
[2019-12-27 06:27] LABS: ALBUMIN 2.6 g/dL (3.5-5.0); ALBUMIN/GLOBULIN RATIO 0.7 (0.8-2.0); ANION GAP 13.6 mmol/L (8-16); CALCIUM 8.5 mg/dL (8.4-10.2); CREATININE, SERUM 1.33 mg/dL (0.57-1.11); POTASSIUM 4.6 mmol/L (3.5-5.1)
--- NOTE | 2019-12-27 06:30 | NUR ---
Patient awake and resting quietly in bed after receiving bed bath. Respirations even and unlabored on room air. Telemetry showing sinus bradycardia. Purewick in place. Bed locked and in lowest position, side rails upx3, alarm on, call light placed within reach. All safety measures in place.
[2019-12-27] MEDS ORDERED: POTASSIUM CHLORIDE 20MEQ/100ML 100 ML IV ONE (07:15)
[2019-12-27] MEDS: ASPIRIN 81 MG CHEW TAB PO SCH (08:14)
[2019-12-27] MEDS: AMIODARONE HCL 200 MG TAB PO SCH (08:14)
[2019-12-27] MEDS: INSULIN GLARGINE 100 UNITS/ML VIAL SQ SCH (08:14)
[2019-12-27] MEDS: INSULIN LISPRO 100 UNIT/1 ML 3ML VIAL SQ SCH (08:14)
[2019-12-27] MEDS: CLOPIDOGREL BISULFATE 75 MG TAB PO SCH (08:15)
[2019-12-27] MEDS: CARVEDILOL 12.5 MG TAB PO SCH (08:15)
[2019-12-27] MEDS: SIMVASTATIN 20 MG TAB PO SCH (08:15)
[2019-12-27] MEDS: SODIUM CHLORIDE 1 GM TAB PO SCH (08:15)
[2019-12-27] MEDS: FENOFIBRATE 145 MG TAB PO SCH (08:15)
[2019-12-27] MEDS: LOSARTAN POTASSIUM 25 MG TAB PO SCH (08:15)
[2019-12-27 08:16] VITALS: BP 104/48
[2019-12-27 08:17] VITALS: BP 104/48
[2019-12-27] MEDS ORDERED: TESSALON PERLE100 MG PO (10:05)
[2019-12-27] MEDS ORDERED: ZITHROMAX500 MG PO (10:05)
--- NOTE | 2019-12-27 10:47 | Discharge Summary ---
ADMIT DIAGNOSES: 1. Right-sided pneumonia. 2. COVID-19 infection, likely. 3. Aqb-IL-beoucsyd myocardial infarction. 4. Atrial fibrillation with rapid ventricular response. 5. Coronary artery disease. 6. Type 2 diabetes mellitus. 7. Severe peripheral vascular disease (history of bilateral below-knee amputations). DISCHARGE DIAGNOSES: 1. COVID-19 infection, resolving. 2. Right-sided pneumonia secondary to COVID-19 infection, resolving. 3. Paroxysmal atrial fibrillation. 4. Coronary artery disease. 5. Peripheral artery disease (history of bilateral below-knee amputations). 6. Non-ST elevated myocardial infarction, resolving. 7. Hyponatremia secondary to psychogenic polydipsia, improving. 8. Stage 3 chronic kidney disease. 9. Chronic bronchitis. 10. Previous heavy tobacco smoker. 11. Acute on chronic diastolic congestive heart failure, resolving. HOSPITAL COURSE: This is an 84-year-old woman, who initially was admitted to [facility] with diagnosis of possible right- sided pneumonia, atrial fibrillation with rapid ventricular rate and acute on chronic diastolic congestive heart failure. She was also diagnosed with non-ST elevated myocardial infarction during this hospitalization. The patient was seen by rug designer namely, Dr. Bassam Rivas who spoke with the daughter and they elected to proceed with conservative medical treatment only. The patient was started on oral amiodarone as well as carvedilol. The patient's troponin I did get as high as 0.498 during this hospitalization, but it did normalize during this hospital stay. The patient was found to be COVID-19 positive during this hospitalization. She improved clinically with supportive care, which included intravenous azithromycin. The patient was seen by Infectious Disease specialist namely, Dr. Castillo, who felt that her COVID-19 infection was predominantly asymptomatic. She was found to be hyponatremic during this hospitalization with a sodium level that did get as low as 121. On discharge, it was 126. She was started on sodium chloride tablets 1 g three times a day which she tolerated quite well. After speaking with the daughter, we discovered that her hyponatremia was secondary to psychogenic polydipsia. According to the daughter, the patient drinks water throughout the day because of her chronic cough. The daughter states the patient was a previous heavy tobacco smoker and most likely now has emphysema. Thus during this hospitalization, she was diagnosed with chronic bronchitis. Her chest x-rays were not consistent with emphysema. On the day before discharge, chest film revealed interval improvement of the right infrahilar hazy opacification. The patient's condition on discharge was stable. DISCHARGE MEDICATIONS: 1. Azithromycin 500 mg daily for 7 days. 2. Rosuvastatin 20 mg at bedtime. 3. Losartan 50 mg b.i.d. 4. Levemir insulin 25 units in the morning and 22 units at night. 5. Fenofibrate 145 mg daily. 6. Clopidogrel 75 mg daily. 7. Carvedilol 12.5 mg twice a day. 8. Aspirin 81 mg daily. 9. Tessalon Perles 100 mg t.i.d. p.r.n. cough. I instructed the adult daughter to hold Humalog insulin until further notice because the patient did have episodes of hypoglycemia. FOLLOWUP INSTRUCTIONS: The patient will be discharged home today with her adult daughter. I instructed the adult daughter to keep her mother under quarantine until January 04, 2020. I also instructed the adult daughter that the patient is not to drink more than four glasses of water a day with each glass being 8 ounces of volume. I did explain to the daughter that the patient's hyponatremia was likely secondary to excessive water drinking. Also, the patient will be followed at home in 2 weeks by her physician that provides home visits. The patient will have a repeat basic metabolic profile in 2 weeks after discharge to follow up on her renal function as well as electrolytes, particularly her sodium level. MD OMI Veliz/EFRAIN /[id number] JONAS
--- NOTE | 2019-12-27 11:00 | NUR ---
Left wrist IV discontinued. No signs of infiltration noted. 2x2 gauze and coban placed. Taken via stretcher by [facility]. AAOX3 to time, person,place. Respirations even and unlabored. Discharge instructions, rx, and all personal belongings taken with patient.
== END 2019-12-27 11:00 | disposition home or self-care (01) | DRG 177 ==
LOC: ER 16:43 → ERHOLD 17:44 → MED/SURG3 21:23 → OBSVTOIN 12-25 14:45 → MED/SURG3 12-25 19:38
DX: U07.1 COVID-19 (principal); J12.89 Other viral pneumonia; I50.33 Acute on chronic diastolic (congestive) heart failure; I21.A1 Myocardial infarction type 2; E87.1 Hypo-osmolality and hyponatremia; I48.0 Paroxysmal atrial fibrillation; I25.10 Atherosclerotic heart disease of native coronary artery without angina pectoris; E78.5 Hyperlipidemia, unspecified; I73.9 Peripheral vascular disease, unspecified; E11.22 Type 2 diabetes mellitus with diabetic chronic kidney disease; I12.9 Hypertensive chronic kidney disease with stage 1 through stage 4 chronic kidney disease, or unspecified chronic kidney disease; N18.3 Chronic kidney disease, stage 3 (moderate); R63.1 Polydipsia; J42 Unspecified chronic bronchitis; Z87.891 Personal history of nicotine dependence; Z86.73 Personal history of transient ischemic attack (TIA), and cerebral infarction without residual deficits; Z90.49 Acquired absence of other specified parts of digestive tract; Z89.611 Acquired absence of right leg above knee; Z89.512 Acquired absence of left leg below knee; Z88.0 Allergy status to penicillin; Z88.8 Allergy status to other drugs, medicaments and biological substances
CPT/HCPCS: 36415; 71045; 80048; 80053; 80061; 81001; 82550; 82553; 82947; 82948; 83880; 83935; 84295; 84443; 84484; 84520; 85025; 85610; 85730; 93005; 93306; 96372; 99285; G0378; J0456; J1815; J1940; J7030; U0002

== ENCOUNTER 2020-09-24 19:05 | Inpatient (IN) | payer MEDICARE, OTHER ==
[~2020-09-24] VITALS: Ht 111.8 cm; Wt 54.5 kg
[~2020-09-24 19:05] MED LIST changes: +TESSALON PERLE100 MG PO; +ZITHROMAX500 MG PO
[2020-09-24] MEDS ORDERED: CEFTRIAXONE SOD 1 GM/50 ML BAG IV ONE (19:15)
[2020-09-24] MEDS ORDERED: ACETAMINOPHEN 325 MG TAB PO ONE (19:15)
[2020-09-24] MEDS ORDERED: SODIUM CHLORIDE 0.9% 1000ML 1,000 ML IV ONE (19:15)
[2020-09-24] MEDS ORDERED: CEFTRIAXONE SOD 1 GM in SODIUM CHLORIDE 0.9% 50ML 50 ML IV ONE (19:30)
[2020-09-24 19:45] LABS: BASOPHILS % 0.2 % (0.0-1.0); HEMATOCRIT 31.5 % (34.2-44.1); HEMOGLOBIN 10.3 g/dL (12.0-16.0); LYMPHOCYTES # (AUTO) 0.4 (1.0-3.2); LYMPHOCYTES % 2.8 % (18.0-39.1); MEAN CORPUSCULAR HEMOGLOBIN 29.5 pg (28-32); MEAN CORPUSCULAR HGB CONC 32.7 g/dL (31-35); MEAN CORPUSCULAR VOLUME 90.3 fL (81-99); MONOCYTES # (AUTO) 0.4 (0.2-0.8); MONOCYTES % 2.8 % (4.4-11.3); NEUTROPHILS # (AUTO) 13.8 (2.1-6.9); NEUTROPHILS % 93.7 % (38.7-80.0); PLATELET COUNT 141 x10e3/uL (140-360); RED BLOOD COUNT 3.49 x10e6/uL (3.6-5.1); RED CELL DISTRIBUTION WIDTH 15.5 % (11.7-14.4)
[2020-09-24 19:52] LABS: CLARITY,URINE TURBID (CLEAR); COLOR,URINE YELLOW (YELLOW); LEUKOCYTE ESTERASE ,URINE LARGE (NEGATIVE); NITRITE,URINE NEGATIVE (NEGATIVE)
[2020-09-24 19:53] LABS: KETONES,URINE NEGATIVE (NEGATIVE); PROTEIN,URINE DIPSTICK 2+ (NEGATIVE); URINE UROBILINOGEN 0.2 mg/dL (0.2 - 1)
[2020-09-24 19:54] LABS: BACTERIA,URINE MANY /HPF; EPITHELIAL CELLS,URINE MODERATE /LPF; WBC,URINE (MAN) >50 /HPF (0-5)
[2020-09-24 19:57] LABS: ALBUMIN 2.9 g/dL (3.5-5.0); ALBUMIN/GLOBULIN RATIO 0.7 (0.8-2.0); ANION GAP 17.4 mmol/L (8-16); CALCIUM 8.9 mg/dL (8.4-10.2); CREATININE, SERUM 1.73 mg/dL (0.57-1.11); POTASSIUM 4.4 mmol/L (3.5-5.1)
[2020-09-24 20:04] LABS: CREATINE KINASE MB 2.6 ng/mL (0-5.0)
[2020-09-24] MEDS ORDERED: ASPIRIN 81 MG CHEW TAB PO ONE (20:30)
[2020-09-24] MEDS ORDERED: CEFTRIAXONE SOD 1 GM/50 ML BAG IV SCH (21:15)
[2020-09-24] MEDS ORDERED: ACETAMINOPHEN 325 MG TAB PO PRN (21:15)
[2020-09-24] MEDS ORDERED: DEXTROSE 50% SYRINGE 50 ML IV PRN (21:15)
[2020-09-24] MEDS ORDERED: ONDANSETRON HCL INJ 2MG/ML 2ML 2 MG/ML VIAL IV PRN (21:15)
[2020-09-24 22:01] LABS: INR 1.03; PROTHROMBIN TIME 14.1 seconds (11.9-14.5)
[2020-09-24 22:02] LABS: PARTIAL THROMBOPLASTIN TIME 34.3 seconds (23.8-35.5)
[2020-09-24 23:15] VITALS: BP 102/48
[2020-09-24] MEDS: SODIUM CHLORIDE 0.9% 1000ML 1,000 ML IV SCH (23:30)
[2020-09-25 05:00] VITALS: BP 117/52
[2020-09-25 05:28] LABS: CREATINE KINASE MB 2.7 ng/mL (0-5.0)
[2020-09-25] MEDS ORDERED: BRILINTA90 MG (06:00)
[2020-09-25] MEDS ORDERED: ATORVASTATIN CA20 MG PO (06:02)
[2020-09-25 06:24] LABS: BASOPHILS % 0.2 % (0.0-1.0); EOSINOPHILS % 0.2 % (0.0-6.0); HEMATOCRIT 29.7 % (34.2-44.1); HEMOGLOBIN 9.6 g/dL (12.0-16.0); LYMPHOCYTES # (AUTO) 1.1 (1.0-3.2); LYMPHOCYTES % 8.5 % (18.0-39.1); MEAN CORPUSCULAR HEMOGLOBIN 29.4 pg (28-32); MEAN CORPUSCULAR HGB CONC 32.3 g/dL (31-35); MEAN CORPUSCULAR VOLUME 91.1 fL (81-99); MONOCYTES # (AUTO) 0.7 (0.2-0.8); MONOCYTES % 5.8 % (4.4-11.3); NEUTROPHILS # (AUTO) 10.5 (2.1-6.9); NEUTROPHILS % 84.8 % (38.7-80.0); PLATELET COUNT 132 x10e3/uL (140-360); RED BLOOD COUNT 3.26 x10e6/uL (3.6-5.1); RED CELL DISTRIBUTION WIDTH 15.3 % (11.7-14.4)
[2020-09-25 06:54] LABS: CREATINE KINASE MB 3.9 ng/mL (0-5.0)
[2020-09-25 07:17] LABS: ALBUMIN 2.4 g/dL (3.5-5.0); ALBUMIN/GLOBULIN RATIO 0.7 (0.8-2.0); ANION GAP 16.4 mmol/L (8-16); CALCIUM 7.9 mg/dL (8.4-10.2); CREATININE, SERUM 1.77 mg/dL (0.57-1.11); POTASSIUM 4.4 mmol/L (3.5-5.1)
[2020-09-25] MEDS: INSULIN REGULAR, HUMAN 100 UNIT/1 ML 3ML VIAL SQ SCH ×4 (07:30→21:00)
[2020-09-25] MEDS: ASPIRIN 81 MG CHEW TAB PO SCH (09:20)
[2020-09-25] MEDS: SODIUM CHLORIDE 0.9% 1000ML 1,000 ML IV SCH ×2 (09:20→20:15)
[2020-09-25 09:29] VITALS: BP 115/56
[2020-09-25 11:58] VITALS: BP 121/71
[2020-09-25] MEDS ORDERED: CLOPIDOGREL BISULFATE 75 MG TAB PO NR (13:45)
[2020-09-25 16:10] VITALS: BP 113/65
[2020-09-25] MEDS: METOPROLOL TARTRATE 50 MG TAB PO SCH (17:29)
[2020-09-25] MEDS ORDERED: CEFTRIAXONE SOD 1 GM in SODIUM CHLORIDE 0.9% 50ML 50 ML IV SCH (20:00)
[2020-09-25 21:00] VITALS: BP 95/69
[2020-09-25] MEDS ORDERED: ATORVASTATIN 20 MG TAB PO SCH (21:00)
[2020-09-25 21:49] VITALS: BP 95/69
[2020-09-26] VITALS: BP 130/63
[2020-09-26 04:00] VITALS: BP 141/62
[2020-09-26 07:15] VITALS: BP 141/62
[2020-09-26] MEDS: INSULIN REGULAR, HUMAN 100 UNIT/1 ML 3ML VIAL SQ SCH (07:30)
[2020-09-26 08:11] VITALS: BP 138/60
[2020-09-26] MEDS: ASPIRIN 81 MG CHEW TAB PO SCH (08:50)
[2020-09-26] MEDS: METOPROLOL TARTRATE 50 MG TAB PO SCH (08:50)
[2020-09-26] MEDS ORDERED: CLOPIDOGREL BISULFATE 75 MG TAB PO SCH (09:00)
[2020-09-26 11:56] VITALS: BP 150/73
== END 2020-09-26 15:00 | disposition home or self-care (01) | DRG 689 ==
LOC: ER 19:10 → ERHOLD 21:07 → MED/SURG3 22:57
PROVIDERS: ADMIT Internal Medicine; ATTEND Internal Medicine
DX: N39.0 Urinary tract infection, site not specified (principal); I21.A1 Myocardial infarction type 2; I25.10 Atherosclerotic heart disease of native coronary artery without angina pectoris; Z86.16 Personal history of COVID-19; Z89.612 Acquired absence of left leg above knee; Z89.611 Acquired absence of right leg above knee; Z95.0 Presence of cardiac pacemaker; I73.9 Peripheral vascular disease, unspecified; R74.8 Abnormal levels of other serum enzymes; Z20.822 Contact with and (suspected) exposure to COVID-19
CPT/HCPCS: 36415; 71045; 80053; 81001; 82550; 82553; 82948; 83605; 84484; 85025; 85610; 85730; 87040; 87086; 87186; 93005; 93306; 99284; J0696; J2405; J7030; U0002

== ENCOUNTER 2021-06-29 01:39 | Inpatient (IN) | payer MEDICARE, OTHER ==
[2021-06-29] VITALS (75 sets, daily range): BP systolic 64–138; BP diastolic 43–95
[~2021-06-29] VITALS: Ht 111.8 cm; Wt 53.1 kg
[~2021-06-29 01:39] MED LIST changes: +ATORVASTATIN CA20 MG PO; +BRILINTA90 MG PO
[2021-06-29] MEDS: NOREPINEPHRINE 8 MG/D5W 250 ML 250 ML IV SCH ×3 (01:45→12:28)
[2021-06-29] MEDS ORDERED: SODIUM CHLORIDE 0.9% 1000ML 1,000 ML ONE (01:59)
[2021-06-29] MEDS ORDERED: MIDAZOLAM HCL IV STA (02:02)
[2021-06-29] MEDS ORDERED: SODIUM CHLORIDE 0.9% IV STA ×2 (02:02→12:59)
[2021-06-29] MEDS ORDERED: ETOMIDATE 2 MG/ML 10 ML INJ IV STA (02:02)
[2021-06-29] MEDS ORDERED: SUCCINYLCHOLINE CHLORIDE 20 MG/ML 10ML VIAL IV STA (02:02)
[2021-06-29] MEDS ORDERED: FENTANYL CITRATE INJ 2,000 MCG in SODIUM CHLORIDE 0.9% 250ML 250 ML IV SCH (02:15)
[2021-06-29] MEDS ORDERED: SODIUM CHLORIDE 0.9% 1000ML 2,000 ML IV ONE (02:15)
[2021-06-29] MEDS ORDERED: FENTANYL 2000MCG/NS 250 250 ML ONE (02:32)
[2021-06-29] MEDS ORDERED: MIDAZOLAM HCL 5MG/ML 10ML VIAL 100 ML IV ONE (02:32)
[2021-06-29 02:43] LABS: BASOPHILS % 0.1 % (0.0-1.0); HEMOGLOBIN 9.4 g/dL (12.0-16.0); LYMPHOCYTES # (AUTO) 2.8 (1.0-3.2); LYMPHOCYTES % 9.9 % (18.0-39.1); MEAN CORPUSCULAR HEMOGLOBIN 30.3 pg (28-32); MEAN CORPUSCULAR HGB CONC 30.3 g/dL (31-35); MONOCYTES # (AUTO) 1.5 (0.2-0.8); MONOCYTES % 5.2 % (4.4-11.3); NEUTROPHILS # (AUTO) 22.7 (2.1-6.9); NEUTROPHILS % 80.6 % (38.7-80.0); PLATELET COUNT 251 x10e3/uL (140-360); RED CELL DISTRIBUTION WIDTH 17.8 % (11.7-14.4)
[2021-06-29 02:49] LABS: CLARITY,URINE CLOUDY (CLEAR); COLOR,URINE YELLOW (YELLOW); LEUKOCYTE ESTERASE ,URINE LARGE (NEGATIVE); NITRITE,URINE NEGATIVE (NEGATIVE); PROTEIN,URINE DIPSTICK >=300 (NEGATIVE)
[2021-06-29 02:50] LABS: KETONES,URINE NEGATIVE (NEGATIVE); URINE UROBILINOGEN 0.2 mg/dL (0.2 - 1)
[2021-06-29 02:52] LABS: INR 1.26; PROTHROMBIN TIME 16.6 seconds (11.9-14.5)
[2021-06-29 02:53] LABS: PARTIAL THROMBOPLASTIN TIME 33.7 seconds (23.8-35.5)
[2021-06-29 02:55] LABS: BACTERIA,URINE MANY /HPF; EPITHELIAL CELLS,URINE RARE /LPF; RBC,URINE 21-50 /HPF (0-5); WBC,URINE (MAN) >50 /HPF (0-5)
[2021-06-29] MEDS: FENTANYL 2000MCG/NS 250 250 ML IV SCH (03:00)
[2021-06-29 03:02] LABS: ALBUMIN 1.5 g/dL (3.5-5.0); ALBUMIN/GLOBULIN RATIO 0.4 (0.8-2.0); ANION GAP 17.8 mmol/L (8-16); CALCIUM 7.4 mg/dL (8.4-10.2); CREATININE, SERUM 3.08 mg/dL (0.57-1.11)
[2021-06-29 03:03] LABS: POTASSIUM 5.8 mmol/L (3.5-5.1)
[2021-06-29] MEDS ORDERED: Vancomycin IV 1 GM in SODIUM CHLORIDE 0.9% 250ML 250 ML IV STA (03:26)
[2021-06-29] MEDS ORDERED: SODIUM BICARBONATE 8.4% INJ 50 ML SYR IV STA (03:26)
[2021-06-29] MEDS ORDERED: CALCIUM CHLORIDE 10% 1.36 MEQ/ML 10ML SYR IV STA (03:26)
[2021-06-29] MEDS ORDERED: DEXTROSE 50% SYRINGE 50 ML IV STA (03:26)
[2021-06-29 03:29] LABS: ABG HCO3 14 mmol/L (22-26); ABG PCO2 26 mmHg (35-45); ABG PH 7.34 (7.35-7.45); ABG PO2 179 mmHg (80-105); ABG TCO2 15
[2021-06-29] MEDS ORDERED: INSULIN REGULAR, HUMAN 100 UNIT/1 ML IV ONE (03:30)
[2021-06-29] MEDS ORDERED: CEFEPIME 2 GM in SODIUM CHLORIDE 0.9% 100 ML IV ONE (03:30)
[2021-06-29 03:39] LABS: LYMPHOCYTES % (MANUAL) 10 % (19-48); MONOCYTES % (MANUAL) 4 % (3.4-9.0); MYELOCYTES % (MANUAL) 2 % (0-0); NEUTROPHILS % (MANUAL) 82 % (40-74); PROMYELOCYTES % (MANUAL) 2 % (0-0)
[2021-06-29 03:40] LABS: ANISOCYTOSIS MODERATE; PLATELET ESTIMATE ADEQUATE; PLATELET MORPHOLOGY COMMENT NORMAL; POLYCHROMASIA FEW; RBC MORPHOLOGY COMMENT ABNORMAL
[2021-06-29 03:41] LABS: BURR CELLS SLIGHT; OVALOCYTES FEW; SCHISTOCYTES RARE
[2021-06-29] MEDS ORDERED: VASOPRESSIN 60 UNIT in DEXTROSE 5% 50ML 57 ML IV STA (03:44)
[2021-06-29] MEDS ORDERED: SODIUM CHLORIDE 0.9% 100 ML ONE (03:46)
[2021-06-29] MEDS ORDERED: CEFEPIME 2 GM VIAL ONE (03:46)
[2021-06-29] MEDS ORDERED: SODIUM CHLORIDE 0.9% 1000ML 1,000 ML IV STA ×2 (04:25→04:26)
[2021-06-29] MEDS ORDERED: SODIUM CHLORIDE 0.9% 1000ML 2,000 ML ONE (04:39)
[2021-06-29 06:12] LABS: BASOPHILS # (AUTO) 0.1 (0.0-0.1); BASOPHILS % 0.2 % (0.0-1.0); LYMPHOCYTES # (AUTO) 0.7 (1.0-3.2); LYMPHOCYTES % 2.6 % (18.0-39.1); MONOCYTES # (AUTO) 1.8 (0.2-0.8); MONOCYTES % 6.3 % (4.4-11.3); NEUTROPHILS # (AUTO) 24.9 (2.1-6.9); NEUTROPHILS % 88.4 % (38.7-80.0); PLATELET COUNT 256 x10e3/uL (140-360); RED CELL DISTRIBUTION WIDTH 17.5 % (11.7-14.4)
[2021-06-29 06:33] LABS: ANION GAP 14.1 mmol/L (8-16); CALCIUM 8.2 mg/dL (8.4-10.2); CREATININE, SERUM 2.66 mg/dL (0.57-1.11); POTASSIUM 4.1 mmol/L (3.5-5.1)
[2021-06-29] MEDS: MEROPENEM 500 MG in SODIUM CHLORIDE 0.9% 50ML 50 ML IV SCH ×2 (07:16→20:16)
[2021-06-29] MEDS ORDERED: DEXTROSE 50% SYRINGE 50 ML IV PRN (07:45)
[2021-06-29 08:57] LABS: ABG PCO2 24 mmHg (35-45); ABG PH 7.39 (7.35-7.45)
[2021-06-29 08:58] LABS: ABG HCO3 15 mmol/L (22-26); ABG PO2 94 mmHg (80-105); ABG TCO2 16
[2021-06-29] MEDS: PROPOFOL IV EMULSION 10MG/ML 100 ML IV PRN (09:01)
[2021-06-29] MEDS ORDERED: ALBUMIN 25% 25GM 100ML 100 ML ONE (10:34)
[2021-06-29] MEDS: SODIUM BICARBONATE 8.4% IV SCH (10:47)
[2021-06-29] MEDS: STERILE WATER IV SCH (10:47)
[2021-06-29] MEDS ORDERED: ALBUMIN 25% 25GM 100ML 0.25 GM/ML BTL IV ONE (11:00)
[2021-06-29 11:06] LABS: LYMPHOCYTES % (MANUAL) 3 % (19-48); MONOCYTES % (MANUAL) 1 % (3.4-9.0); NEUTROPHILS % (MANUAL) 96 % (40-74); PLATELET ESTIMATE ADEQUATE; PLATELET MORPHOLOGY COMMENT NORMAL; RBC MORPHOLOGY COMMENT NORMAL
[2021-06-29] MEDS ORDERED: AMIODARONE HCL 100 ML IV ONE (11:15)
[2021-06-29] MEDS ORDERED: AMIODARONE 900MG 500 ML IV ONE (11:15)
[2021-06-29] MEDS ORDERED: AMIODARONE HCL 150 MG/100 ML BAG IV ONE (11:15)
[2021-06-29 12:42] LABS: BODY FLUID TYPE PLEURAL
[2021-06-29 12:45] LABS: BODY FLUID COLOR YELLOW
[2021-06-29 12:46] LABS: BODY FLUID APPEARANCE CLOUDY
[2021-06-29] MEDS ORDERED: VASOPRESSIN IV STA (12:59)
[2021-06-29] MEDS: INSULIN REGULAR, HUMAN 100 UNIT/1 ML SQ SCH ×3 (13:03→21:37)
[2021-06-29 13:13] LABS: LYMPHOCYTES,BODY FLUID 31 %; MONO/MACROPHG,BODY FLUID 13 %; NEUTROPHILS,BODY FLUID 56 %
[2021-06-29 13:20] LABS: WBC,BODY FLUID 243 cells/uL
[2021-06-29 13:21] LABS: RBC,BODY FLUID 10000 cells/uL
[2021-06-29] MEDS ORDERED: SUCCINYLCHOLINE CHLORIDE 20 MG/ML 10ML VIAL ONE (13:46)
[2021-06-29] MEDS ORDERED: ETOMIDATE 2 MG/ML 10 ML INJ IV ONE (13:46)
[2021-06-29] MEDS: VASOPRESSIN 60 UNIT in DEXTROSE 5% 50ML 57 ML IV PRN (14:17)
[2021-06-29] MEDS ORDERED: TRAZODONE HCL50 MG PO (14:21)
[2021-06-29] MEDS ORDERED: MIRTAZAPINE7.5 MG PO (14:21)
[2021-06-29] MEDS ORDERED: SODIUM CHLORIDE 0.9% 50ML 50 ML ONE (20:40)
[2021-06-29] MEDS ORDERED: SODIUM CHLORIDE 0.9% 500ML 500 ML IV ONE (21:30)
[2021-06-29] MEDS: INSULIN GLARGINE 100 UNITS/ML VIAL SQ SCH (21:37)
[2021-06-30] VITALS (86 sets, daily range): BP systolic 56–99; BP diastolic 36–70
[2021-06-30] MEDS: FENTANYL 2000MCG/NS 250 250 ML IV SCH ×3 (03:15→16:37)
[2021-06-30 05:45] LABS: BASOPHILS # (AUTO) 0.1 (0.0-0.1); BASOPHILS % 0.3 % (0.0-1.0); EOSINOPHILS # (AUTO) 0.2 (0.0-0.4); EOSINOPHILS % 0.7 % (0.0-6.0); HEMATOCRIT 33.1 % (34.2-44.1); HEMOGLOBIN 10.5 g/dL (12.0-16.0); LYMPHOCYTES # (AUTO) 1.7 (1.0-3.2); LYMPHOCYTES % 5.8 % (18.0-39.1); MEAN CORPUSCULAR HGB CONC 31.7 g/dL (31-35); MEAN CORPUSCULAR VOLUME 97.6 fL (81-99); MONOCYTES # (AUTO) 1.1 (0.2-0.8); MONOCYTES % 3.7 % (4.4-11.3); NEUTROPHILS # (AUTO) 25.5 (2.1-6.9); NEUTROPHILS % 87.4 % (38.7-80.0); PLATELET COUNT 203 x10e3/uL (140-360); RED BLOOD COUNT 3.39 x10e6/uL (3.6-5.1); RED CELL DISTRIBUTION WIDTH 17.6 % (11.7-14.4)
[2021-06-30] MEDS: PROPOFOL IV EMULSION 10MG/ML 100 ML IV PRN (05:58)
[2021-06-30 06:08] LABS: ALBUMIN 1.6 g/dL (3.5-5.0); ALBUMIN/GLOBULIN RATIO 0.6 (0.8-2.0); ANION GAP 14.7 mmol/L (8-16); CREATININE, SERUM 2.26 mg/dL (0.57-1.11); POTASSIUM 3.7 mmol/L (3.5-5.1)
[2021-06-30] MEDS: INSULIN REGULAR, HUMAN 100 UNIT/1 ML SQ SCH ×3 (07:30→16:30)
[2021-06-30 07:34] LABS: ABG HCO3 15 mmol/L (22-26); ABG PCO2 25 mmHg (35-45); ABG PH 7.39 (7.35-7.45); ABG PO2 101 mmHg (80-105)
[2021-06-30 07:35] LABS: ABG TCO2 16
[2021-06-30] MEDS: MEROPENEM 500 MG in SODIUM CHLORIDE 0.9% 50ML 50 ML IV SCH ×2 (08:18→20:37)
[2021-06-30] MEDS: STERILE WATER IV SCH (08:22)
[2021-06-30] MEDS: SODIUM BICARBONATE 8.4% IV SCH (08:22)
[2021-06-30] MEDS: COLLAGENASE 5 GM TUBE TOP SCH (08:23)
[2021-06-30] MEDS ORDERED: SODIUM CHLORIDE 0.9% 500ML 500 ML ONE (08:25)
[2021-06-30 11:42] LABS: ANISOCYTOSIS SLIGHT; BAND NEUTROPHILS % (MANUAL) 13 %; LYMPHOCYTES % (MANUAL) 8 % (19-48); MONOCYTES % (MANUAL) 1 % (3.4-9.0); NEUTROPHILS % (MANUAL) 78 % (40-74); PLATELET ESTIMATE ADEQUATE; PLATELET MORPHOLOGY COMMENT NORMAL; RBC MORPHOLOGY COMMENT NORMAL
[2021-06-30 11:43] LABS: POIKILOCYTOSIS SLIGHT
[2021-06-30] MEDS ORDERED: CALCIUM CHLORIDE 13.6 MEQ in SODIUM CHLORIDE 0.9% 100 ML 100 ML IV ONE (15:30)
[2021-06-30] MEDS: ASPIRIN 81 MG CHEW TAB NG SCH (16:50)
[2021-06-30] MEDS ORDERED: APIXAB 2.5 MG TABLET NG SCH (17:00)
[2021-06-30] MEDS: PHENYLEPHRINE 10MG/ML VIAL 40 MG in DEXTROSE 5% 250ML 246 ML IV SCH ×2 (17:47→21:30)
[2021-06-30] MEDS: INSULIN GLARGINE 100 UNITS/ML VIAL SQ SCH (21:30)
[2021-06-30] MEDS: NOREPINEPHRINE 8 MG/D5W 250 ML 250 ML IV SCH (22:10)
[2021-07-01] VITALS (87 sets, daily range): BP systolic 54–108; BP diastolic 35–73
[2021-07-01] MEDS: INSULIN REGULAR, HUMAN 100 UNIT/1 ML SQ SCH ×4 (00:49→18:04)
[2021-07-01] MEDS ORDERED: LACTATED RINGER'S 1,000 ML INJ SCH (01:15)
[2021-07-01] MEDS: STERILE WATER IV SCH (01:40)
[2021-07-01] MEDS: SODIUM BICARBONATE 8.4% IV SCH (01:40)
[2021-07-01] MEDS: PROPOFOL IV EMULSION 10MG/ML 100 ML IV PRN (01:41)
[2021-07-01] MEDS: VASOPRESSIN 60 UNIT in DEXTROSE 5% 50ML 57 ML IV PRN (01:42)
[2021-07-01 03:16] LABS: MAGNESIUM 1.7 MG/DL (1.3-2.1); PHOSPHORUS 5.3 MG/DL (2.3-4.7)
[2021-07-01 03:22] LABS: ALBUMIN 1.1 g/dL (3.5-5.0); ALBUMIN/GLOBULIN RATIO 0.4 (0.8-2.0); ANION GAP 18.4 mmol/L (8-16); CREATININE, SERUM 2.28 mg/dL (0.57-1.11); POTASSIUM 4.4 mmol/L (3.5-5.1)
[2021-07-01 03:25] LABS: CALCIUM 6.4 mg/dL (8.4-10.2)
[2021-07-01] MEDS ORDERED: MAGNESIUM SULFATE 2GM/50ML 50 ML IV ONE (03:30)
[2021-07-01 06:07] LABS: BASOPHILS # (AUTO) 0.2 (0.0-0.1); BASOPHILS % 0.5 % (0.0-1.0); HEMATOCRIT 33.5 % (34.2-44.1); HEMOGLOBIN 10.2 g/dL (12.0-16.0); LYMPHOCYTES # (AUTO) 1.8 (1.0-3.2); LYMPHOCYTES % 4.7 % (18.0-39.1); MEAN CORPUSCULAR HEMOGLOBIN 30.9 pg (28-32); MEAN CORPUSCULAR HGB CONC 30.4 g/dL (31-35); MEAN CORPUSCULAR VOLUME 101.5 fL (81-99); MONOCYTES # (AUTO) 1.2 (0.2-0.8); MONOCYTES % 3.3 % (4.4-11.3); NEUTROPHILS # (AUTO) 32.4 (2.1-6.9); NEUTROPHILS % 85.9 % (38.7-80.0); PLATELET COUNT 199 x10e3/uL (140-360)
[2021-07-01 06:22] LABS: CHOL/HDL RATIO 11.7 (3.0-3.6); MAGNESIUM 1.9 MG/DL (1.3-2.1)
[2021-07-01 06:25] LABS: ALBUMIN 1.1 g/dL (3.5-5.0); ALBUMIN/GLOBULIN RATIO 0.4 (0.8-2.0); ANION GAP 18.4 mmol/L (8-16); CREATININE, SERUM 2.24 mg/dL (0.57-1.11); POTASSIUM 4.4 mmol/L (3.5-5.1)
[2021-07-01 06:32] LABS: CALCIUM 6.3 mg/dL (8.4-10.2)
[2021-07-01 06:44] LABS: THYROID STIMULATING HORMONE 0.323 uIU/mL (0.350-4.940)
[2021-07-01 07:13] LABS: BAND NEUTROPHILS % (MANUAL) 5 %; LYMPHOCYTES % (MANUAL) 4 % (19-48); NEUTROPHILS % (MANUAL) 91 % (40-74); PLATELET ESTIMATE ADEQUATE; RBC MORPHOLOGY COMMENT NORMAL
[2021-07-01 07:14] LABS: PLATELET MORPHOLOGY COMMENT FEW GIANT
[2021-07-01] MEDS: MEROPENEM 500 MG in SODIUM CHLORIDE 0.9% 50ML 50 ML IV SCH (07:22)
[2021-07-01] MEDS ORDERED: CALCIUM CHLORIDE 13.6 MEQ in SODIUM CHLORIDE 0.9% 100 ML 100 ML IV ONE (07:45)
[2021-07-01] MEDS ORDERED: SODIUM CHLORIDE 3% FOR INHALATION 15 ML NEB IH ONE (08:00)
[2021-07-01] MEDS ORDERED: SODIUM CHLORIDE 3% 200 ML IV SCH (08:15)
[2021-07-01] MEDS: ASPIRIN 81 MG CHEW TAB NG SCH (08:46)
[2021-07-01] MEDS: COLLAGENASE 5 GM TUBE TOP SCH (08:46)
[2021-07-01] MEDS ORDERED: Vancomycin IV 1 GM in SODIUM CHLORIDE 0.9% 250ML 250 ML IV ONE (10:00)
[2021-07-01] MEDS ORDERED: SODIUM BICARBONATE 8.4% INJ 50 ML SYR IV NR (11:00)
[2021-07-01 11:16] LABS: ABG HCO3 10 mmol/L (22-26); ABG PCO2 31 mmHg (35-45); ABG PH 7.11 (7.35-7.45); ABG PO2 70 mmHg (80-105); ABG TCO2 11
[2021-07-01] MEDS: SODIUM BICARBONATE 8.4% SYRING 150 ML in DEXTROSE 5% 1,000 ML IV SCH ×2 (11:50→22:59)
[2021-07-01] MEDS: CEFEPIME 1 GM in SODIUM CHLORIDE 0.9% 50ML 50 ML IV SCH (21:00)
[2021-07-01] MEDS: CALCIUM CARBONATE 500 MG CHEWABLE TABS PO SCH (21:00)
[2021-07-01] MEDS: INSULIN GLARGINE 100 UNITS/ML VIAL SQ SCH (21:33)
[2021-07-01] MEDS: NOREPINEPHRINE 8 MG/D5W 250 ML 250 ML IV SCH (23:42)
[2021-07-02] VITALS (93 sets, daily range): BP systolic 65–121; BP diastolic 41–65
[2021-07-02] MEDS: INSULIN REGULAR, HUMAN 100 UNIT/1 ML SQ SCH ×2 (00:15→06:35)
[2021-07-02] MEDS: PHENYLEPHRINE 10MG/ML VIAL 40 MG in DEXTROSE 5% 250ML 246 ML IV SCH ×4 (02:39→22:34)
[2021-07-02] MEDS: VASOPRESSIN 60 UNIT in DEXTROSE 5% 50ML 57 ML IV PRN (02:40)
[2021-07-02] MEDS: FENTANYL 2000MCG/NS 250 250 ML IV SCH ×2 (03:15→13:23)
[2021-07-02 06:22] LABS: BASOPHILS # (AUTO) 0.2 (0.0-0.1); BASOPHILS % 0.5 % (0.0-1.0); HEMATOCRIT 31.2 % (34.2-44.1); HEMOGLOBIN 9.7 g/dL (12.0-16.0); LYMPHOCYTES # (AUTO) 1.5 (1.0-3.2); LYMPHOCYTES % 4.9 % (18.0-39.1); MEAN CORPUSCULAR HEMOGLOBIN 31.1 pg (28-32); MEAN CORPUSCULAR HGB CONC 31.1 g/dL (31-35); MONOCYTES # (AUTO) 1.1 (0.2-0.8); MONOCYTES % 3.5 % (4.4-11.3); NEUTROPHILS # (AUTO) 27.2 (2.1-6.9); PLATELET COUNT 119 x10e3/uL (140-360); RED BLOOD COUNT 3.12 x10e6/uL (3.6-5.1); RED CELL DISTRIBUTION WIDTH 16.2 % (11.7-14.4)
[2021-07-02 06:45] LABS: ALBUMIN 0.7 g/dL (3.5-5.0); ALBUMIN/GLOBULIN RATIO 0.4 (0.8-2.0); ANION GAP 18.7 mmol/L (8-16); CREATININE, SERUM 1.96 mg/dL (0.57-1.11); POTASSIUM 3.7 mmol/L (3.5-5.1)
[2021-07-02 06:52] LABS: CALCIUM 6.1 mg/dL (8.4-10.2)
[2021-07-02 08:17] LABS: ABG HCO3 13 mmol/L (22-26); ABG PCO2 35 mmHg (35-45); ABG PH 7.18 (7.35-7.45); ABG PO2 62 mmHg (80-105); ABG TCO2 14
[2021-07-02] MEDS: ASPIRIN 81 MG CHEW TAB NG SCH (08:36)
[2021-07-02] MEDS: CEFEPIME 1 GM in SODIUM CHLORIDE 0.9% 50ML 50 ML IV SCH ×2 (08:36→21:00)
[2021-07-02] MEDS: CALCIUM CARBONATE 500 MG CHEWABLE TABS PO SCH ×3 (08:37→21:00)
[2021-07-02] MEDS: SODIUM CHLORIDE 1 GM TAB PO SCH (08:37)
[2021-07-02] MEDS: COLLAGENASE 5 GM TUBE TOP SCH (08:37)
[2021-07-02] MEDS ORDERED: DEXTROSE 50% SYRINGE 50 ML IV PRN (09:15)
[2021-07-02] MEDS ORDERED: SODIUM BICARBONATE 8.4% INJ 50 ML SYR IV ONE (09:15)
[2021-07-02] MEDS ORDERED: INSULIN REGULAR, HUMAN 3ML VL 100 UNIT in SODIUM CHLORIDE 0.45% 100 ML 100 ML IV SCH ×2 (09:15)
[2021-07-02] MEDS: SODIUM BICARBONATE 8.4% SYRING 150 ML in DEXTROSE 5% 1,000 ML IV SCH ×2 (10:03→19:16)
[2021-07-02] MEDS: INSULIN REGULAR, HUMAN 3ML VL 100 UNIT in SODIUM CHLORIDE 0.9% 100 ML 99 ML IV SCH ×2 (10:18)
[2021-07-02] MEDS: NOREPINEPHRINE 8 MG/D5W 250 ML 250 ML IV SCH ×3 (12:00→23:18)
[2021-07-02] MEDS ORDERED: SODIUM CHLORIDE 3% 200 ML IV PRN (14:15)
[2021-07-02] MEDS ORDERED: CALCIUM CHLORIDE 13.6 MEQ in SODIUM CHLORIDE 0.9% 100 ML 100 ML IV ONE (14:30)
[2021-07-02] MEDS ORDERED: SODIUM CHLORIDE 3% 200 ML IV ONE (20:30)
[2021-07-03] VITALS (32 sets, daily range): BP systolic 81–103; BP diastolic 42–59
[2021-07-03] MEDS: PHENYLEPHRINE 10MG/ML VIAL 40 MG in DEXTROSE 5% 250ML 246 ML IV SCH ×3 (02:00→09:24)
[2021-07-03] MEDS: NOREPINEPHRINE 8 MG/D5W 250 ML 250 ML IV SCH ×2 (03:36→07:50)
[2021-07-03 06:40] LABS: BASOPHILS # (AUTO) 0.1 (0.0-0.1); BASOPHILS % 0.3 % (0.0-1.0); EOSINOPHILS % 0.1 % (0.0-6.0); HEMATOCRIT 24.3 % (34.2-44.1); HEMOGLOBIN 7.2 g/dL (12.0-16.0); LYMPHOCYTES # (AUTO) 2.4 (1.0-3.2); MEAN CORPUSCULAR HEMOGLOBIN 30.6 pg (28-32); MEAN CORPUSCULAR HGB CONC 29.6 g/dL (31-35); MONOCYTES # (AUTO) 1.3 (0.2-0.8); MONOCYTES % 4.2 % (4.4-11.3); NEUTROPHILS # (AUTO) 23.7 (2.1-6.9); NEUTROPHILS % 79.1 % (38.7-80.0); RED BLOOD COUNT 2.35 x10e6/uL (3.6-5.1); RED CELL DISTRIBUTION WIDTH 15.5 % (11.7-14.4)
[2021-07-03 06:53] LABS: MEAN CORPUSCULAR VOLUME 103.4 fL (81-99)
[2021-07-03 06:54] LABS: PLATELET COUNT 43 x10e3/uL (140-360)
[2021-07-03 07:20] LABS: ALBUMIN 0.4 g/dL (3.5-5.0); ALBUMIN/GLOBULIN RATIO 0.4 (0.8-2.0); ANION GAP 27.6 mmol/L (8-16); CREATININE, SERUM 1.71 mg/dL (0.57-1.11); POTASSIUM 3.6 mmol/L (3.5-5.1)
[2021-07-03 07:22] LABS: CALCIUM 6.1 mg/dL (8.4-10.2)
[2021-07-03] MEDS: VASOPRESSIN 60 UNIT in DEXTROSE 5% 50ML 57 ML IV PRN (07:51)
[2021-07-03] MEDS: SODIUM BICARBONATE 8.4% SYRING 150 ML in DEXTROSE 5% 1,000 ML IV SCH (07:54)
[2021-07-03] MEDS: INSULIN REGULAR, HUMAN 3ML VL 100 UNIT in SODIUM CHLORIDE 0.9% 100 ML 99 ML IV SCH ×4 (07:54→09:23)
[2021-07-03] MEDS: COLLAGENASE 5 GM TUBE TOP SCH (07:56)
[2021-07-03 07:59] LABS: BAND NEUTROPHILS % (MANUAL) 4 %; LYMPHOCYTES % (MANUAL) 11 % (19-48); METAMYELOCYTES % (MANUAL) 1 % (0-0); MONOCYTES % (MANUAL) 3 % (3.4-9.0); MYELOCYTES % (MANUAL) 1 % (0-0); NEUTROPHILS % (MANUAL) 80 % (40-74); NUCLEATED RED BLOOD CELLS 4
[2021-07-03 08:00] LABS: ANISOCYTOSIS MODERATE; HYPOCHROMASIA MODERATE; PLATELET ESTIMATE MARKEDLY DECREASED; PLATELET MORPHOLOGY COMMENT NORMAL; POLYCHROMASIA FEW; RBC MORPHOLOGY COMMENT ABNORMAL
[2021-07-03 08:01] LABS: ELLIPTOCYTE, RBC SLIGHT; OVALOCYTES FEW
[2021-07-03 08:04] LABS: BURR CELLS SLIGHT
[2021-07-03] MEDS: ASPIRIN 81 MG CHEW TAB NG SCH (08:31)
[2021-07-03] MEDS: CEFEPIME 1 GM in SODIUM CHLORIDE 0.9% 50ML 50 ML IV SCH (08:31)
[2021-07-03] MEDS: SODIUM CHLORIDE 1 GM TAB PO SCH (08:31)
[2021-07-03] MEDS: CALCIUM CARBONATE 500 MG CHEWABLE TABS PO SCH (08:31)
[2021-07-03] MEDS ORDERED: SODIUM BICARBONATE 8.4% SYRING 100 ML ONE (08:32)
[2021-07-03] MEDS ORDERED: SODIUM BICARBONATE 8.4% INJ 50 ML SYR IV ONE ×2 (09:00→11:00)
[2021-07-03 09:01] LABS: ABG HCO3 17 mmol/L (22-26); ABG PCO2 39 mmHg (35-45); ABG PH 7.25 (7.35-7.45); ABG PO2 267 mmHg (80-105); ABG TCO2 18
[2021-07-03] MEDS ORDERED: SODIUM BICARBONATE 8.4% SYRING 50 ML ONE (10:43)
[2021-07-03] MEDS ORDERED: Morphine 2mg Syringe 2 MG/ML SYR IV PRN (11:30)
== END 2021-07-03 16:50 | disposition expired | DRG 871 ==
LOC: ER 01:45 → ERHOLD 03:57 → ICU 05:19
PROVIDERS: ADMIT Internal Medicine; ATTEND Internal Medicine
PROC: 3E033XZ Introduction of Vasopressor into Peripheral Vein, Percutaneous Approach (ICD-10-PCS; principal; 2021-06-29)
PROC: 0BH18EZ Insertion of Endotracheal Airway into Trachea, Via Natural or Artificial Opening Endoscopic (ICD-10-PCS; 2021-06-29)
PROC: 5A1945Z Respiratory Ventilation, 24-96 Consecutive Hours (ICD-10-PCS; 2021-06-29)
PROC: 0W9930Z Drainage of Right Pleural Cavity with Drainage Device, Percutaneous Approach (ICD-10-PCS; 2021-06-29)
PROC: 0W993ZZ Drainage of Right Pleural Cavity, Percutaneous Approach (ICD-10-PCS; 2021-06-29)
DX: A41.9 Sepsis, unspecified organism (principal); G93.41 Metabolic encephalopathy; J96.01 Acute respiratory failure with hypoxia; R65.21 Severe sepsis with septic shock; J18.9 Pneumonia, unspecified organism; I50.23 Acute on chronic systolic (congestive) heart failure; E87.2 Acidosis; N17.9 Acute kidney failure, unspecified; J93.9 Pneumothorax, unspecified; E87.1 Hypo-osmolality and hyponatremia; I13.0 Hypertensive heart and chronic kidney disease with heart failure and stage 1 through stage 4 chronic kidney disease, or unspecified chronic kidney disease; Z68.41 Body mass index [BMI] 40.0-44.9, adult; D62 Acute posthemorrhagic anemia; N39.0 Urinary tract infection, site not specified; E11.42 Type 2 diabetes mellitus with diabetic polyneuropathy; Z89.611 Acquired absence of right leg above knee; E78.5 Hyperlipidemia, unspecified; Z89.612 Acquired absence of left leg above knee; I48.0 Paroxysmal atrial fibrillation; Z79.01 Long term (current) use of anticoagulants; E11.22 Type 2 diabetes mellitus with diabetic chronic kidney disease; N18.9 Chronic kidney disease, unspecified; Z79.899 Other long term (current) drug therapy; E83.51 Hypocalcemia; R62.7 Adult failure to thrive; B96.20 Unspecified Escherichia coli [E. coli] as the cause of diseases classified elsewhere; R59.0 Localized enlarged lymph nodes; Z20.822 Contact with and (suspected) exposure to COVID-19; Z86.16 Personal history of COVID-19
CPT/HCPCS: 31500; 32555; 36415; 36555; 36600; 51700; 71045; 71250; 80048; 80053; 80061; 81001; 82805; 82948; 83605; 83615; 83735; 84100; 84157; 84295; 84443; 85025; 85610; 85730; 87040; 87070; 87086; 87186; 87205; 88112; 88305; 89051; 93005; 93306; 94003; 94799; 99251; 99284; C1729; J0330; J0692; J1815; J1817; J2185; J2370; J3370; J3475; J7030; J7040; J7050; J7070; J7121; P9047; U0002